=== PATIENT | female | born 2000 | race African-American/Black ===

== ENCOUNTER 2025-08-12 04:45 | Emergency (ER) | payer SELFPAY ==
--- OUTSIDE RECORDS SUMMARY | 2025-08-11 08:40 | XMS_ITS | Encounter Summary ---
Author Organization [facility] Address [address] [place] [address] Care Team Providers Care Commanding Officer H[employer]ide [employer] Name Role Phone Mike Todd Primary Care Provider [phone] Reason for Referral * Consultation (Routine) - Open Specialty Diagnoses / Procedures Referred By Serina sharp Referred To Contact Physical Therapy Diagnoses Dizziness and giddiness Steven Hope MD [address] [place] [address] Phone: tel: fax: Referral ID Status Reason Start Date Expiration Date V isits Requested Visits Authorized [id number] Open Specialty Services Required 08/11/2025 08/11/2026 1 1 Reason for Visit * Reason Comments Establish Care * Evaluate & Treat - Pending Review Specialty Diagnoses / Procedures Referred By Serina sharp Referred To Contact Neuroscience Diagnoses Dizziness and giddiness Cerebral cysts Unlisted, Ordering Provider, Steven Chapa MD [address] [place] [address] Phone: tel: fax: Referral ID Status Reason Start Date Expiration Date Visits Requested Visits Authorized [id number] Pending Review Specialty Services Required 07/23/2025 07/23/2026 1 1 Encounter Details Date Type Department Care Team (Late st Contact Info) Description 08/11/2025 8:40 AM CDT Office Visit [facility] Neurosciences [address] [place] [address] Steven Hope MD [address] [place] [address] Dizziness and giddiness (Primary Dx); Cerebral cysts Social History Tobacco Use Types Packs/Day Years Used Date Smoking Tobacco: Never Assessed Comments Unknown Sex and Gender Information Value Date Recorded Sex Assigned at Not on file Legal Sex Female 1:14 PM CDT Gender Identity Not on file Sexual Orientation Not on file documented as of this encounter Last Filed Vital Signs Vital Sign Reading Time Taken Comments Blood Pressure 112/78 08/11/2025 8:39 AM CDT Pulse 94 08/11/2025 8:39 AM CDT Temperature - - Respiratory Rate 18 08/11/2025 8:39 AM CDT Oxygen Saturation 98% 08/11/2025 8:39 AM CDT Inhaled Oxygen Concentration - - Weight 104.3 kg (230 lb) 08/11/2025 8:39 AM CDT Height 162.6 cm (5' 4) 08/11/2025 8:39 AM CDT Body Mass Index 39.48 08/11/2025 8:39 AM CDT documented in this encounter Patient Instructions * Patient Instructions* Steven Hope MD - 08/11/2025 9:33 AM CDT Life style Visit [employer] and watch videos on migraines. Track migraine using migraine kamila or similar shannon. Practice low tyramine diet, print out given with AVS 30-50 minutes of moderate intensity aerobic exercises 3-5 days a week Hydration Consider relaxation including yoga or mindfulness calm Shannon Read book on mindfulness by Obdulio Ramirez and Pratik Joe Bring medication bottles or photographs with documentation how you are taking. Use smart watch to track sleep,HR and mood Medications and tests Riboflavin 400 mg daily [id number] Magnesium oxide 250 mg daily [id number] Start TPM 25 mg qD, build to 50 mg bid Start Sumatriptan 50 mg qD prn migraine vertigo Vestibular rehabilitation RTC 8 weeks documented in this encounter Progress Notes * Steven Hope MD - 08/11/2025 9:14 AM CDT Chief Complain: Severe vertigo with headaches abrupt onset 05/15/25 [x] Headache start/worsen after an accident, illness or infection: no [x]> 3-6 Months [x] Independent Historian:No [x] Narrative: when I was working out to loose weight, in May 15 fell down and ht my head on sink saw spots everywhere called mom called ambulance. They told me that I had cyst in brain. PCP scheduled for MRI and showed cyst. I am falling forward and balance is off I never used to get headaches vision is bad Headaches-No headaches prior to 05/15. Pounding + temples. 5/10. Nausea. 12 days /month.saman not takemeds. Vertigo- difficulty balance when walk. Everything feels unleveled. Using walker x 2M. Everything started on May 15.had really bad headache when this all started. Does not drive. On shot term disability at work. Both ear ring a lot. No diplopia. 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 Orthostatic sx- when stand heart race and head pounding feel like pass out [x]WANT TO BE STILL / NOT MOVING []WANT TO PACE / FEEL RESTLESS []MOVEMENT DOES NOT MATTER Headache COMORBID's Affecting choice of medication None except Marked[] []Low BP- NO BB,CCB []Bradycardia-NO BB CCB []Asthma- NO BB []Coronary artery disease-NO Triptans []Weight gain - NO TCA,VPA []Memory loss-NO TCA TPM []PVD/Raynaud -NO triptans []Stroke- NO triptans [x]Anxiety/depression Headache/Migraine Journal: Monthly [x]Headaches > 15D [x]Headache Free days HFD: 15 [x]Migraine Days MMD: 15 [x]Headaches >4H daily [x]Disabled days all days []Triptans/anti-CGRP days: [x]>10 days of NSAIDS NO [x]Current Migraine meds: []Medication side effects from previous Rx []HIT6: Prodrome YES[] NO [x] []Yawning []Irritability/mood changes []Stuffy nose []Food []Pale or flushed []Difficulty in sleeping []Fatigue []Neck stiffness []Thirst/increased urination [x]Family history Migraine mom and sister [x]Car/sea/plane sickness +++ [x]Caffeine intake 0 Non-pain SX []Aura( visual,sensory/Motor) [x]Blurred vision []Brain fog ( processing delay,memory ,naming and concentration) [x]Touch Allodynia [x]Pulsating/throbbing [x]Photophobia [x]Phonophobia [x]Osmophobia [x]Nausea/vomiting []Numbness/weakness []Speech and language [x]Ringing [x]Vertigo/Dizziness Triggers-None except marked [x] Food & drinks (Aged cheeses, cured meats, fermented foods, pickles, alcohol, caffeine, MSG & aspartame) [x]Weather change [x]Female hormones [x]Sensory overload (light/noise) [x]Physical exertion/travel [x]Mental and physical stress [x]Dehydration [x]Sleep disturbance [x]Heat [x]Neck pain []Others Anti-Migraine meds tried and failed Marked You have failed (after a trial of at least two months) or cannot use one of the following preventive therapies (document name and date tried): []Anticonvulsant - []Betablockers - []TCA- []CCB - []SSRI- []Muscle relaxant- []BTX- []CGRP mAB- []CGRP Antagonist - [x]NSAIDS - []Triptans- []DiTans-Lasmiditan- []Pain management - []Others- Specific characters of headaches None except Marked []Thunderclap-SAH ( rapid build up to peak) []TVO & Pulsatile tinnitus-PTC (obese,papilledema,vision loss,venous thrombosis) []Cough headache-Chiari & tussive headache []Headache with syncope []Jaw claudication,weight loss,elderly and fatigue - GCA []Autonomic features-Cluster/TAC ( rhinorrhea,ptosis,lacrimation,lui) [x]Orthostatic headaches- Low pressure( POTS,Jacqueline danlos syndrome) []Medication overuse headache( > 15D NSAIDS/10D Triptans or opiates) []ADEBAYO ( obese,undiagnosed,not using CPAP) [x]Anxiety and depression( On meds/undiagnosed/intractable/refractory) []Post traumatic headache( recent TBI) RED FLAGS. - None except Marked[x] []Fever /Meningitis []First or worst headache []Cancer /HIV []Thunderclap []Side locked []Neurologic SX []Weight loss []IV Drug use []Immunocompromised []Systemic SX- []Onset after 65 []Change in pattern []Fall and SDH Medically appropriate Exam: BP 112/78 Pulse 94 Resp 18 Ht 1.626 m (5' 4) Wt 104.3 kg (230 lb) SpO2 98% Skin : Warm and moist, no rash. Normal Crotids. Normal language and orientation Normal examination of cranial Nrves 1-12 including Fundi. Normal strength 5/5 ,normal toner and symmetric 2+ tendon reflexes in all extremities. Normal sensory exam and coordination. 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 Reviewed the clinical notes from multiple ER visits on August 05, August 02, JulyJuly 31 July 28, July 15 May 28 May 31, multiple visit in April as well as 2023. Patient went for multiple problem predominant being vertigo. I reviewed the clinical note from Dr. Reid I independently reviewed and interpreted labs & reports of CMP showing low potassium 2.9, normal CBC, normal TSH, normal CK, negative troponins, normal magnesium. Diagnosis: Abrupt onset vertigo Abrupt onset severe head Pineal gland cyst Difficulty in walking Plan and recommendations. Life style Visit [employer] and watch videos on migraines. Track migraine using migraine kamila or similar shannon. Practice low tyramine diet, print out given with AVS 30-50 minutes of moderate intensity aerobic exercises 3-5 days a week Hydration Consider relaxation including yoga or mindfulness calm Shannon Read book on mindfulness by Obdulio Ramirez and Pratik Joe Bring medication bottles or photographs with documentation how you are taking. Use smart watch to track sleep,HR and mood Medications and tests Riboflavin 400 mg daily [id number] Magnesium oxide 250 mg daily [id number] Start TPM 25 mg qD, build to 50 mg bid Start Sumatriptan 50 mg qD prn migraine vertigo Compazine 5-10 mg t.i.d. p.r.n. vertigo ENT eval Vestibular rehabilitation RTC 8 weeks On May 15, 2025 while during workout she developed abrupt onset vertigo and headache of moderate to severe intensity, evaluated in the ER. Since then, symptoms are persisting. Now patient using walker to ambulate, unable to return to work because of vertigo and headaches. She has been to the ER onmultiple occasion and has been treated symptomatically with meclizine steroid, antianxiety medication including hydroxyzine, and Ativan. Her examination shows no evidence of nystagmus. She has a narrow based gait. She uses walker but can ambulate. Discussed various causes of persistent vertigo including vestibular migraine, peripheral vestibulopathy, subjective dizziness syndrome. I looked at the MRI brain, no central cause identified. Patienthas several features in the history including motion sickness, family history and headache with features of migraine suggest a migraine pathology. I would like to start treatment for migraine with topiramate, magnesium, riboflavin and PRN sumatriptan and Compazine. I also like to start on vestibular rehabilitation. Patient would also benefit by evaluation from an ENT. I also recommended management of anxiety and depression, she need to talk to the primary care aboutthat or psychiatrist or psychologist Regarding pineal cyst, asymptomatic, no evidence of compression on the MRI. Discussed significance of pineal cyst. Discussed went to see a neurosurgeon. Discussed importance of lifestyle in the management of migraine with hydration, using shannon to recordtriggers and journal, low tyramine diet, Education through wasting on [employer],discussed side effects of medication being prescribed including topiramate including teratogenic side effects. She is also reporting blurred vision which is likely manifestation of migraine. Also advised her todiscuss further with managed care analyst Headache work up planned/ Marked tests ordered during this visit []CBC,CMP,B12,MMA,Folate,Niacin,TSH,HIV,UTOX RPR []ESR CRP CK []Dilated Eye exam []EEG []MRI Brain WWO []CSF with opening Pressure []MRV brain []CTA HN []Autoimmune work up( CHIQUIS,Lupus,SSAB) []Paraneoplastic []SLE/vasculitis documented in this encounter Plan of Treatment Upcoming Encounters Date Type Department Care Team (Late st Contact Info) Description 11/16/2025 10:20 AM EMT B Office Visit [facility] Neuro[facility] [address] [place] [address] Steven Hope MD [address] [place] [address] Scheduled Referrals Name Type Priority Associated Diagnoses Order Schedule AMBULATORY REFERRAL TO VESTIBULAR REHABILITATION Outpatient Referral Routine Dizziness and giddiness 1 Occurrences starting 08/11/2025 until 09/10/2025 documented as of this encounter Visit Diagnoses Diagnosis Dizziness and giddiness- Primary Cerebral cysts documented in this encounter Care Teams Commanding Officer Homicide Squad Relationship Specialty Start Date End Date Mike Todd [address] [place] [phone] PCP - General 07/22/25 documented as of this encounter
--- NOTE | ~2025-08-12 | CT_ITS ---
CT HEAD NON-CONTRAST Clinical History: light headedness/dizziness, hx of brain cyst Comparison: None Technique: Unenhanced axial images skull base to vertex Coronal, sagittal reformats CT images acquired with automatic exposure control for dose reduction DLP: 757 mGy-cm Findings: Small probable arachnoid cyst right middle cranial fossa. Sulci, ventricles: Unremarkable. No intracerebral hemorrhage. No evidence acute territorial infarct. No mass effect, midline shift. Bony calvarium intact. Visualized paranasal sinuses: Clear. Mastoid air cells: Clear. IMPRESSION: 1. No acute intracranial findings. Reviewed, dictated and finalized at location R.
[2025-08-12 04:45] VITALS: BP 139/83; PULSE 87; RESP 16; TEMP 36.9; O2SAT 97
--- NOTE | 2025-08-12 04:52 | ECG_ITS ---
Test Date: 2025-08-12 04:49:43 Measurements Intervals [place] Rate: 85 P: 57 OK: 154 QRS: 52 QRSD: 93 T: -10 QT: 337 QTc: 402 Interpretive Statements SINUS RHYTHM NONSPECIFIC ST & T-WAVE ABNORMALITY ABNORMAL ECG No previous ECG available for comparison Electronically Signed On 08-12-2025 07:42:46 CDT by Onur Albrecht M.D.
--- NOTE | 2025-08-12 05:14 | ED_ITS ---
HPI - Dizziness General Chief Complaint: Dizziness Stated Complaint: Not feeling right after taking meclizine Time Seen by Provider: 08/12/25 04:50 Source: patient and EMS Mode of arrival: EMS Limitations: no limitations History of Present Illness HPI Narrative: This is a 25-year-old female with history of brain cyst who presents to the ED for lightheadedness and possible medication reaction. Patient states that she was having some of the dizziness related to her brain cyst overnight prompting her to take the meclizine that she was prescribed. She states that after taking this, about 10 minutes later she began to have some chest discomfort and lightheadedness prompting her to come to the ED. She states that the chest discomfort has resolved but she continues to have lightheadedness. She is following with a neurosurgeon for this brain cyst. Denies any new neurologic symptoms otherwise. Related Data Allergies Allergy/AdvReac Type Severity Reaction Status Date / Time metoclopramide AdvReac Anxiety Verified 08/12/25 06:41 Review of Systems 2 Review of Systems: Gen.: Denies fevers or chills Eyes: Denies eye pain or visual change ENT: Denies congestion Respiratory: Denies shortness of breath or cough CV: Denies chest pain or palpitations GI: Denies abdominal pain nausea, emesis or diarrhea denies burning, urgency, frequency or hematuria Musculoskeletal: Denies back pain or muscle pain Neuro: As per HPI Skin: Denies rash Except as documented, all other systems reviewed and negative Exam 2 Narrative: APPEARANCE: No acute distress, nontoxic, resting in bed EYES: EOMI. PERRL. Horizontal nystagmus. HEENT: Normocephalic, atraumatic, OMM RESPIRATORY: No respiratory distress Clear to auscultation bilaterally with no rhonchi wheezing or rales. CARDIOVASCULAR: Regular rate and rhythm without murmurs rubs or gallops. ABDOMINAL: Soft, nontender, nondistended, no rebound or guarding MUSCULOSKELETAl: Moves all extremities. No clubbing, cyanosis or edema. NEURO: Awake and alert. Following commands, speech normal. 5/5 strength to all extremities. Dysdiadochokinesia to the right extremities SKIN:: Warm, dry. No rashes lesions or abrasions PSYCHIATRIC: Normal affect/mood, Course Vital Signs Vital signs: Vital Signs Temperature 98.4 F 08/12/25 04:45 Pulse Rate 87 09/17/25 04:45 Respiratory Rate 16 08/12/25 04:45 Blood Pressure 139/83 08/12/25 04:45 Pulse Oximetry 97 08/12/25 04:45 Oxygen Delivery Room Air 08/12/25 04:45 Temperature 98.4 F 08/12/25 04:45 Pulse Rate 67 08/12/25 06:25 Respiratory Rate 16 08/12/25 06:25 Blood Pressure 128/84 08/12/25 06:25 Pulse Oximetry 100 08/12/25 06:25 Oxygen Delivery Room Air 08/12/25 04:45 MDM - Dizziness MDM Narrative Medical decision making narrative: 25-year-old female who presented to the ED for lightheadedness and headache. On initial evaluation, patient was in no acute distress afebrile, hemodynamically stable. She had a stable neurologic exam consistent with dysdiadochokinesia to the right extremities as well as nystagmus. Heart and lungs clear. Abdomen soft and nontender. CBC and CMP were without significant abnormalities. Troponin negative. CT head was obtained and showed no acute process. Patient did develop nausea so she was given Zofran. She was otherwise feeling well at this time. I advised her to discuss her medications with her prescribing provider in to follow-up closely with the neurosurgeon that has been managing her brain cyst. Patient was agreeable to this plan. Given strict return precautions. Differential Diagnosis Differential diagnosis: Likely adverse reaction to drug, benign paroxysmal positional vertigo and other (Brain cyst, pill esophagitis, electrolyte abnormality) Medical Records Attestation: I reviewed the patient's medical records. Lab Data Attestation: I reviewed the patient's lab results. 08/12/25 05:18 08/12/25 05:18 Labs: Lab Results 08/12/25 Range/Units 05:18 WBC 6.0 (4.5-10.0) K/mm3 RBC 3.99 L (4.2-5.4) M/mm3 Hgb 12.1 (12.0-15.0) g/dL Hct 37.8 (37.0-47.0) % MCV 94.7 (80-100) fl MCH 30.3 (26-34) pg MCHC 32.0 (32-36) g/dl RDW 15.3 H (11.5-14.5) % Plt Count 302 (150-375) k/mm3 MPV 9.2 (7.4-10.4) fl Immature Gran % (Auto) 0.2 (0-0.5) % Neut % (Auto) 52.8 (45.5-73.1) % Lymph % (Auto) 39.9 (18.3-44.2) % Talbot % (Auto) 4.7 (2.6-8.5) % Eos % (Auto) 1.7 (0-4.4) % Baso % (Auto) 0.7 (0.2-1.2) % Lymph # (Auto) 2.40 (0.9-3.2) K/mm3 Talbot # (Auto) 0.3 (0.1-0.6) K/mm3 Eos # (Auto) 0.1 (0-0.3) K/mm3 Baso # (Auto) 0.0 (0.0-0.1) K/mm3 Abs Immat Gran (auto) 0.01 (0.00-0.031) K/mm3 Absolute Neuts (auto) 3.2 (1.3-6.7) K/mm3 Absolute Nucleated RBC 0.000 (0.0-0.012) K/mm3 Nucleated RBC % 0.0 (0.0-0.2) % Sodium 139 (137-145) mmol/L Potassium 3.7 (3.4-5.0) mmol/L Chloride 107 (98-107) mmol/L Carbon Dioxide 23 (22-30) mmol/L Anion Gap 9 (4-12) mmol/L BUN 13 (7-17) mg/dL Creatinine 0.67 L (0.7-1.0) mg/dL Estim Creat Clear Calc 129 ml/min Estimated GFR > 60 (59 - ) Glucose 106 (65-110) mg/dL Calcium 8.9 (8.4-10.2) mg/dL Total Bilirubin 0.3 (0.2-1.3) mg/dL AST 24 (14-36) U/L ALT 18 (6-35) U/L Alkaline Phosphatase 77 (38-126) U/L Troponin I < 0.012 (0.000-0.034) ng/mL Total Protein 8.0 (6.3-8.2) g/dL Albumin 4.1 (3.5-5.1) g/dL Imaging Data Attestation: I personally reviewed and interpreted this imaging study as follows: Radiologist's impression: Impressions Head CT 08/12/25 06:16 IMPRESSION: 1. No acute intracranial findings. Discharge Plan Discharge Clinical Impression: Anxiety Adverse reaction to drug Qualifiers: Encounter type: initial encounter Qualified Code(s): T50.905A - Adverse effect of unspecified drugs, medicaments and biological substances, initial encounter Patient Disposition: Home Condition: Stable Instructions: Antibiotic Form Additional Instructions: If you are concerned you may stop taking the the meclizine. Call your prescribing provider to discuss a possible different medication. Continue to follow-up with her neurosurgeon as scheduled. Return to ED for new or worsening symptoms. Patient Language: Estonian Follow-up/Referrals: PHYSICIAN,NEURO OPHTHALMOLOGIST [Primary Care Provider, Internal Medicine]
[2025-08-12 05:23] LABS: Hematocrit 37.8 % (37.0-47.0); Hemoglobin 12.1 g/dL (12.0-15.0); Immature Granulocyte Percent A 0.2 % (0-0.5); Lymphocytes Absolute Auto 2.40 K/mm3 (0.9-3.2); Mean Corpuscular HGB Conc 32.0 g/dl (32-36); Mean Corpuscular Hemoglobin 30.3 pg (26-34); Mean Corpuscular Volume 94.7 fl (80-100); Nucleated Red Blood Cells Absolute Auto 0.000 K/mm3 (0.0-0.012); Nucleated Red Blood Cells Perc 0.0 % (0.0-0.2); Platelet Count Result 302 k/mm3 (150-375); Red Blood Count 3.99 M/mm3 (4.2-5.4); White Blood Count 6.0 K/mm3 (4.5-10.0)
[2025-08-12 05:37] LABS: Alanine Aminotransferase 18 U/L (6-35); Albumin Level 4.1 g/dL (3.5-5.1); Alkaline Phosphatase 77 U/L (38-126); Anion Gap 9 mmol/L (4-12); Aspartate Amino Transferase 24 U/L (14-36); Bilirubin,Total 0.3 mg/dL (0.2-1.3); Blood Urea Nitrogen 13 mg/dL (7-17); Calcium 8.9 mg/dL (8.4-10.2); Carbon Dioxide 23 mmol/L (22-30); Chloride 107 mmol/L (98-107); Estimated CRCL calculation 129 ml/min; Estimated Glomerular Filt Rate > 60; Glucose 106 mg/dL (65-110); Potassium 3.7 mmol/L (3.4-5.0); Sodium 139 mmol/L (137-145); Total Protein 8.0 g/dL (6.3-8.2)
[2025-08-12 05:48] LABS: Troponin I < 0.012 ng/mL (0.000-0.034)
[2025-08-12 06:25] VITALS: BP 128/84; PULSE 67; RESP 16; O2SAT 100
[2025-08-12] MEDS: ONDANSETRON INJ 4 MG/2 ML VIAL IV PUSH (06:47)
[2025-08-12] MEDS: LORazepam (*CRX) 0.5 MG TABLET PO (07:02)
[2025-08-12 07:56] VITALS: BP 121/89; PULSE 82; RESP 20; O2SAT 99
== END 2025-08-12 07:58 | disposition home or self-care (01) ==
PROVIDERS: Emergency Provider Student in an Organized Health Care Education/Training Program
DX: F41.9 Anxiety disorder, unspecified (principal); T50.905A Adverse effect of unspecified drugs, medicaments and biological substances, initial encounter; R42 Dizziness and giddiness; R07.9 Chest pain, unspecified; Z79.899 Other long term (current) drug therapy
CPT/HCPCS: 36415; 70450; 80053; 84484; 85025; 93005; 96374; 99284; A9270; J2405

== ENCOUNTER 2025-08-19 00:57 | Emergency (ER) | payer BC, SELFPAY ==
--- NOTE | ~2025-08-19 | XR_ITS ---
Examination: XR chest 2V Clinical History: dizziness Comparison: None Technique: PA and Lateral Findings: Cardiomediastinal silhouette normal size and configuration. Lungs clear. No acute bony abnormality. IMPRESSION: 1. No acute cardiopulmonary findings. Reviewed, dictated and finalized at location R.
[2025-08-19 00:58] VITALS: BP 141/84; PULSE 92; RESP 16; TEMP 37.5; O2SAT 100
--- OUTSIDE RECORDS SUMMARY | 2025-08-19 00:59 | XMS_ITS | Clinical Summary ---
Author Organization [facility] Address [facility] [place] [address] Care Team Providers Care Head Of Operation And Logistics Name Role Phone Mike Todd MD Primary Care Provider [phone] Allergies Active Allergy Reactions Criticality Noted Date Comments Latex Hives,Itching Medium 12/11/2019 Metoclopramide Anxiety,Dystonia Medium 07/31/2025 Medications zolpidem (AMBIEN) 10 MG tablet Take 1 tablet (10 mg total) by mouth nightly as needed for Sleep. 11/17/2022 Active ferrous sulfate, 65 mg elemental, 325 (65 FE) MG tablet ferrous sulfate 325 mg (65 mg iron) tablet Active albuterol sulfate HFA 108 (90 Base) MCG/ACT inhaler Inhale 2 puffs into the lungs every 6 (six) hours as needed for Wheezing. 8 g 04/11/2023 Active hydrOXYzine (ATARAX) 25 MG tablet Take 1 tablet 3 times a day by oral route as needed for 30 days. 05/28/2025 Active escitalopram (LEXAPRO) 10 MG tablet Take 1 tablet every day by oral route for 90 days. 05/26/2025 Active meclizine (TRAVEL SICKNESS) 25 MG chewable tablet Chew 0.5 tablets (12.5 mg total) by mouth 3 (three) times daily as needed for Dizziness. 90 tablet 05/31/2025 Active LORazepam (ATIVAN) 0.5 MG tabletIndicatio ns:Anxiety hyperventilatio n,Stress Take 1 tablet (0.5 mg total) by mouth every 8 (eight) hours as needed for Anxiety. 10 tablet 08/05/2025 Active Encounters Date Type Department Care Team Description 08/05/2025 3:11 PM CDT - 08/05/2025 5:59 PM CDT Emergency [facility] [place] [address] Day Mendez MD Tingling Discharge Disposition: Home or Self Care (Routine Discharge) 08/05/2025 Travel 08/02/2025 4:52 PM CDT - 08/02/2025 7:36 PM CDT Emergency [facility] [place] [address] Lilly Albrecht MD Shortness Of Breath Discharge Disposition: Left Against Medical Advice 08/02/2025 Travel 07/31/2025 2:15 PM CDT - 07/31/2025 9:06 PM CDT Emergency [facility] [place] [address] Franklin Vargas MD Medical Problem Discharge Disposition: Home or Self Care (Routine Discharge) 07/31/2025 Travel 07/29/2025 9:40 PM CDT - 07/29/2025 11:41 PM CDT Emergency [facility] [place] [address] Maureen Benavides MD Medical Problem Discharge Disposition: Home or Self Care (Routine Discharge) 07/29/2025 Travel 07/28/2025 11:38 AM CDT - 07/28/2025 2:52 PM CDT Emergency [facility] [place] [address] Marcus Akhtar MD Dizziness; Blurred Vision; Headache; Ear Problem Discharge Disposition: Home or Self Care (Routine Discharge) 07/28/2025 Travel 07/18/2025 1:02 AM CDT - 07/18/2025 4:55 AM CDT Emergency [facility] [place] [address] Fredo Sy MD,PHD Headache Discharge Disposition: Home or Self Care (Routine Discharge) 07/18/2025 Travel 07/13/2025 Telephone [facility] [address], [address] [place] [id number] Bogdan Chen MD Referral 05/31/2025 1:53 PM CDT - 05/31/2025 4:05 PM CDT Emergency [facility] [place] [address] Son Edmonds NP Anxiety Discharge Disposition: Home or Self Care (Routine Discharge) 05/31/2025 Travel 05/24/2025 Results Follow-Up [facility] [place] [address] Marci Correia PA CULTURE URINE 05/20/2025 4:18 PM CDT - 05/20/2025 7:47 PM CDT Emergency [facility] [place] [address] Silvia Lee PA Generalized Weakness Discharge Disposition: Home or Self Care (Routine Discharge) 05/20/2025 Travel from Last 3 Months Family History Medical History Relation Comments Alcohol Abuse Father Asthma Mother Heart Disease Mother Hypertension Mother Stroke Mother Relation Status Comments Father Alive Mother Alive Social History Tobacco Use Types Packs/Day Years Used Date Smoking Tobacco: Never Passive Smoke Exposure: Never Smokeless Tobacco: Never Tobacco Cessation:Counseling Given: Not Answered Alcohol Use Standard Drinks/Week Comments Not Currently 0 (1 standard drink = 0.6 oz pur e alcohol) social Comments No Sex and Gender Information Value Date Recorded Sex Assigned at Female 05/20/2025 4:02 PM CDT 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 Gender Identity Not on file Sexual Orientation Not on file Last Filed Vital Signs Vital Sign Reading Time Taken Comments Blood Pressure 114/81 08/05/2025 5:55 PM CDT Pulse 94 08/05/2025 5:55 PM CDT Temperature 36.7 C (98.1 F) 08/05/2025 6:00 PM CDT Respiratory Rate 18 08/05/2025 5:55 PM CDT Oxygen Saturation 99% 08/05/2025 5:55 PM CDT Inhaled Oxygen Concentration - - Weight 108.9 kg (240 lb) 08/05/2025 2:19 PM CDT Height 162.6 cm (5' 4) 08/05/2025 2:19 PM CDT Body Mass Index 41.2 08/05/2025 2:19 PM CDT Plan of Treatment Health Maintenance Due Date Last Done Comments Cervical Cancer Screening Pap Smear (Age 21 to 29) Every 3 Years 1999 Cervical Cancer Screening 1999 Annual Physical 2002 DTaP, Tdap and Td Vaccines (6 - Tdap) 2010 07/17/2003, 03/20/2002, 12/13/2000, Additional history exists HPV Vaccines (1 - 3-dose series) 2014 Hepatitis C 2017 Hepatitis B Vaccines (1 of 3 - 19+ 3-dose series) 2018 PHQ-2 (Physician [employer]emat[employer]) 11/26/2024 COVID-19 Vaccine ( - season) 2025 Meningococcal B Vaccine Aged Out No l onger eligible based on patient's age to complete this topic Meningococcal Vaccine Aged Out No ravindra billie eligible based on patient's age to complete this topic Pneumococcal Vaccine: Pediatrics (0 to 5 Years) and At-Risk Patients (6 to 49 Years) Aged Out No longer eligible based on patient's age to complete this topic RSV Immunizations Under 20 Months Aged Out No longer eligible based on patient's age to complete this topic Procedures Procedure Name Priority Date/Time Associated Diagnosis Comments ECG 12-LEAD Routine 08/05/2025 4:24 PM CDT MAGNESIUM STAT 08/05/2025 4:03 PM CDT TSH W/REFLEX STAT 08/05/2025 4:03 PM CDT TROPONIN, QUANT STAT 08/05/2025 4:03 PM CDT COMPREHENSIVE METABOLIC PANEL STAT 08/05/2025 4:03 PM CDT PARTIAL THROMBOPLASTIN TIME,PTT STAT 08/05/2025 4:03 PM CDT PROTHROMBIN TIME, VENOUS STAT 08/05/2025 4:03 PM CDT CBC W/DIFF AUTOMATED STAT 08/05/2025 4:03 PM CDT XR CHEST PORTABLE STAT 08/05/2025 2:4 3 PM CDT ECG 12-LEAD Routine 08/02/2025 5:27 PM CDT TROPONIN, QUANT STAT 08/02/2025 5:14 PM CDT MAGNESIUM STAT 08/02/2025 5:14 PM CDT COMPREHENSIVE METABOLIC PANEL STAT 08/02/2025 5:14 PM CDT CBC W/DIFF AUTOMATED STAT 08/02/2025 5:14 PM CDT XR CHEST PA+LAT STAT 08/02/2025 4:55 PM CDT ECG 12-LEAD STAT 07/31/2025 2:41 PM CDT CK (CPK) STAT 07/31/2025 2:35 PM CDT COMPREHENSIVE METABOLIC PANEL STAT 07/31/2025 2:35 PM CDT CBC W/DIFF AUTOMATED STAT 07/31/2025 2:35 PM CDT TSH W/REFLEX Routine 07/31/2025 2:28 PM CDT MAGNESIUM Routine 07/31/2025 2:28 PM CDT THYROXINE, FREE (FT4) STAT 07/29/2025 10:12 PM CDT TROPONIN, QUANT STAT 07/29/2025 10:12 PM CDT TSH W/REFLEX STAT 07/29/2025 10:12 PM CDT MAGNESIUM STAT 07/29/2025 10:12 PM CDT COMPREHENSIVE METABOLIC PANEL STAT 07/29/2025 10:12 PM CDT CBC W/DIFF AUTOMATED STAT 07/29/2025 10:12 PM CDT ECG 12-LEAD Routine 07/29/2025 10:[address] HEAD WO CON STAT 07/28/2025 1:44 PM CDT ECG 12-LEAD Routine 07/28/2025 12:34 PM CDT TSH W/REFLEX STAT 07/28/2025 12:08 PM CDT MAGNESIUM STAT 07/28/2025 12:08 PM CDT COMPREHENSIVE METABOLIC PANEL STAT 07/28/2025 12:08 PM CDT CBC W/DIFF AUTOMATED STAT 07/28/2025 12:08 PM CDT POCT URINE (BACK OFFICE) STAT 07/28/2025 11:40 AM CDT XR CHEST PORTABLE STAT 07/18/2025 2:1 1 AM CDT ECG 12-LEAD STAT 07/18/2025 2:05 AM CDT D-DIMER, QUANTITATIVE STAT 07/18/2025 1:24 AM CDT TROPONIN, QUANT STAT 07/18/2025 1:24 AM CDT COMPREHENSIVE METABOLIC PANEL STAT 07/18/2025 1:24 AM CDT CBC W/DIFF AUTOMATED STAT 07/18/2025 1:24 AM CDT ECG 12-LEAD Routine 05/31/2025 2:58 PM CDT POCT URINE (BACK OFFICE) STAT 05/31/2025 2:38 PM CDT XR CHEST PORTABLE STAT 05/31/2025 2:1 6 PM CDT COMPREHENSIVE METABOLIC PANEL STAT 05/31/2025 1:28 PM CDT CBC W/DIFF AUTOMATED STAT 05/31/2025 1:28 PM CDT MAGNESIUM STAT 05/20/2025 4:31 PM CDT THYROXINE, FREE (FT4) STAT 05/20/2025 4:31 PM CDT THYROID STIM HORMONE TSH STAT 05/20/2025 4:31 PM CDT COMPREHENSIVE METABOLIC PANEL STAT 05/20/2025 4:31 PM CDT CBC W/DIFF AUTOMATED STAT 05/20/2025 4:31 PM CDT ECG 12-LEAD STAT 05/20/2025 4:29 PM CDT XR CHEST PORTABLE STAT 05/20/2025 4:0 6 PM CDT URINE BACTERIA CULTURE Routine 3:42 PM CDT DRUG SCREEN RAPID STAT 05/20/2025 3:4 2 PM CDT HC URINALYSIS AUTO W/O MICRO STAT 05/20/2025 3:42 PM CDT POCT URINE (BACK OFFICE) STAT 05/20/2025 3:35 PM CDT from Last 3 Months Results * ECG 12 lead (08/05/2025 4:24 PM CDT) Only the most recent of8 resultswithin the time period is included. 08/05/2025 4:24 PM CDT Narrative [facility] - 08/05/2025 10:[address] 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: [id number] : 2000 Requested By: AMRIT AGUILAR Order Number: [id number] Reading : Saji Marrus Measurements Intervals [place] Rate: 84 P: 57 UT: 152 QRS: 63 QRSD: 90 T: 11 QT: 345 QTc: 409 Interpretive Statements SINUS RHYTHM NONSPECIFIC T-WAVE ABNORMALITY Compared to ECG 08/02/2025 17:27:04 Sinus arrhythmia no longer present Possible ischemia no longer present T-wave abnormality still present Amrit Aguilar PA-C ECG ORDERABLES Final Resul t Performing Organization Address City/[facility]/ZIP Co de Phone Number [facility] * TSH W/REFLEX (08/05/2025 4:03 PM CDT) Only the most recent of4 resultswithin the time period is included. Pathologist [facility] TSH 1.820 0.358 - 3.74 uIU/ML 08/05/2025 5:03 PM CDT [facility] Comment: HIGH DOSES OF BIOTIN MAY INTERFERE WITH THIS TEST RESULT. CORRELATION TO CLINICAL HISTORY AND PRESENTATION RECOMMENDED. FREE T4 NOT INDICATED 08/05/2025 4:03 PM CDT Amrit Aguilar PA-C LABORATORY Final Resul t Performing Organization Address [facility] de Phone Number [facility] [address] [place] [address], [place] [phone] * PARTIAL THROMBOPLASTIN TIME,PTT (08/05/2025 4:03 PM CDT) PTT 29.5 25.1 - 36.5 SEC 08/05/2025 4:41 PM CDT [facility] 08/05/2025 4:03 PM CDT Amrit Aguilar PA-C LABORATORY Final Resul t Performing Organization Address City/[facility]/ZIP Co de Phone Number [facility] [address] [place] [address], [place] [phone] * PROTIME/INR, VENOUS (08/05/2025 4:03 PM CDT) [facility] PROTIME 12.1 10.2 - 12.9 SEC 08/05/2025 4:41 PM CDT [facility] INR 1.1 08/05/2025 4:41 PM CDT [facility] Comment: Recommended INR Therapeutic Goals: 2.0-3.0 Routine Therapy 2.5-3.5 Mechanical Prosthetic Valves (High Risk) 08/05/2025 4:03 PM CDT Amrit Aguilar PA-C LABORATORY Final Resul t [facility] [address] [place] [address], * (ABNORMAL) COMPREHENSIVE METABOLIC PANEL (08/05/2025 4:03 PM CDT) Only the most recent of8 resultswithin the time period is included. [facility] GLUCOSE 95 70 - 99 MG/DL 08/05/2025 5:03 PM CDT [facility] BUN 8 7 - 18 MG/DL 08/05/2025 5:03 PM CDT [facility] CREATININE S/P/B 0.78 0.55 - 1.02 MG/DL 08/05/2025 5:03 PM CDT [facility] SODIUM S/P/B 139 136 - 145 MMOL/L 08/05/2025 5:03 PM CDT [facility] POTASSIUM S/P/B 3.1(L) 3.5 - 5.1 MMOL/L 08/05/2025 5:03 PM CDT [facility] CHLORIDE S/P/B 111 97 - 115 MMOL/L 08/05/2025 5:03 PM CDT [facility] CO2 19.9(L) 21 - 32 MMOL/L 08/05/2025 5:03 PM CDT [facility] CALCIUM S/P/B 9.2 8.5 - 10.1 MG/DL 08/05/2025 5:03 PM CDT [facility] BILIRUBIN TOTAL S/P/B 0.4 0.2 - 1.2 MG/DL 08/05/2025 5:03 PM CDT [facility] Comment: THIS ASSAY IS NOT RECOMMENDED FOR PATIENTS UNDERGOING TREATMENT WITH ELTROMBOPAG DUE TO THE POTENTIAL FOR FALSELY ELEVATED RESULTS. TOTAL PROTEIN S/P/B 8.1 6.4 - 8.2 G/DL 08/05/2025 5:03 PM T [facility] ALBUMIN S/P/B 3.6 3.4 - 5.0 G/DL 08/05/2025 5:03 PM CDT [facility] AST 17 15 - 37 U/L 08/05/2025 5:03 PM T [facility] ALT 20 14 - 55 U/L 08/05/2025 5:03 PM T [facility] ALKALINE PHOSPHATASE S/P/B 69 50 - 136 U/L 08/05/2025 5:03 PM T [facility] ANION GAP 8.1 2 - 10 MMOL/L 08/05/2025 5:03 PM CDT [facility] BUN CREATININE RATIO 10.2 6 - 26 08/05/2025 5:03 PM T [facility] A/G RATIO 0.8(L) 1.0 - 2.0 RATIO 08/05/2025 5:03 PM T [facility] GFR ESTIMATE >90 >90 ML/MIN/1.7 3 M2 08/05/2025 5:03 PM CDT [facility] Comment: NOTE: eGFR is not calculated for patients <18 years of age or gender unknown. This is an estimated GFR calculation using the new CKD EPI creatinine equation without race and so does not require a correction factor for race. This estimated GFR should not be used for calculating drug doses. 08/05/2025 4:03 PM CDT Amrit Aguilar PA-C LABORATORY Final Resul t [facility] [address] [place] [id number], * (ABNORMAL) CBC W/DIFF AUTOMATED (08/05/2025 4:03 PM CDT) Only the most recent of8 resultswithin the time period is included. WBC 7.02 4.5 - 11.0 x10'3/uL 08/05/2025 4:20 PM CDT [facility] RBC 4.13(L) 4.20 - 5.40 x10'6/uL 08/05/2025 4:20 PM CDT [facility] HGB 12.5 12.0 - 16.0 G/DL 08/05/2025 4:20 PM CDT [facility] HCT 37.8(L) 38.0 - 48.0 % 08/05/2025 4:20 PM CDT [facility] MCV 91.5 81.0 - 99.0 FL 08/05/2025 4:20 PM CDT [facility] MCH 30.3 27.0 - 31.0 PG 08/05/2025 4:20 PM CDT [facility] MCHC 33.1 32.0 - 36.0 G/DL 08/05/2025 4:20 PM CDT [facility] RDW 15.7(H) 11.5 - 14.5 % 08/05/2025 4:20 PM CDT [facility] PLT 317 130 - 400 x10'3/uL 08/05/2025 4:20 PM CDT [facility] MPV 9.4 9.3 - 12.2 FL 08/05/2025 4:20 PM CDT [facility] DIFFERENTIAL TYPE AUTOMATED DIFFERENTIAL 08/05/2025 4:20 PM CDT [facility] NEUTROPHILS % 73.4 % 08/05/2025 4:20 PM CDT [facility] LYMPHOCYTES % 21.1 % 08/05/2025 4:20 PM CDT [facility] MONOCYTES % 3.8 % 08/05/2025 4:20 PM CDT [facility] EOSINOPHILS 0.6 % 08/05/2025 4:20 PM CDT [facility] BASOPHILS 0.7 % 08/05/2025 4:20 PM CDT [facility] IMMATURE GRANS % 0.4 % 08/05/20 4:20 PM CDT [facility] ABS. NEUTROPHILS 5.15 1.80 - 7.70 x10'3/uL 08/05/2025 4:20 PM CDT [facility] ABS. LYMPHOCYTES 1.48 1.00 - 4.80 x10'3/uL 08/05/2025 4:20 PM CDT [facility] ABS. MONOCYTES 0.27 0.24 - 0.86 x10'3/uL 08/05/2025 4:20 PM CDT [facility] ABS. EOSINOPHILS 0.04 0.04 - 0.36 x10'3/uL 08/05/2025 4:20 PM CDT [facility] ABS. BASOPHILS 0.05 0.01 - 0.08 x10'3/uL 08/05/2025 4:20 PM CDT [facility] ABS. IMMATURE GRANULOCYTES 0.03 0.00 - 0.49 x10'3/uL 08/05/2025 4:20 PM CDT [facility] 08/05/2025 4:03 PM CDT us Amrit Aguilar PA-C LABORATORY Final Resul t Performing Organization Address City/[facility] Co de Phone Number [facility] [address] [place] [address], [place] [phone] * TROPONIN, QUANT (08/05/2025 4:03 PM CDT) Only the most recent of4 resultswithin the time period is included. TROPONIN I HIGH SENSITIVITY 3 <54 ng/L 08/05/2025 5:03 PM CDT [facility] Comment: HIGH DOSES OF BIOTIN, TROPONIN-SPECIFIC AUTOANTIBODIES, AND ANTIBODY THERAPY CONTAINING HAMA MAY INTERFERE WITH THIS TEST RESULT. CORRELATION TO CLINICAL HISTORY AND PRESENTATION RECOMMENDED. 08/05/2025 4:03 PM CDT us Amrit Aguilar PA-C LABORATORY Final Resul t Performing Organization Address City/[facility]/ZIP Co de Phone Number [facility] [address] [place] [address], [place] [phone] * MAGNESIUM (08/05/2025 4:03 PM CDT) Only the most recent of6 resultswithin the time period is included. MAGNESIUM 2.0 1.8 - 2.4 MG/DL 08/05/2025 5:03 PM CDT [facility] 08/05/2025 4:03 PM CDT us Amrit Aguilar PA-C LABORATORY Final Resul t [facility] [address] [place] [address], * XR CHEST PORTABLE (08/05/2025 2:43 PM CDT) Only the most recent of4 resultswithin the time period is included. Anatomical Region Laterality Modality Chest Radiographic Dayanna ging 08/05/2025 2:44 PM CDT Impressions 08/05/2025 2:46 PM CDT =====IMPRESSION:===== No acute findings. Ordered By: AMRIT AGUILAR Interpreted By: Quintin Ascencio MD, 08/05/2025 2:44 PM Narrative 08/05/2025 2:46 PM [address] [address] Examination: Chest x-ray 1 view Exam date/time: 08/05/2025 2:34 PM Reason For Exam: Shortness of breath. Comparison: 08/02/2025 Findings: Cardiomediastinal silhouette and pulmonary vasculature are within normal limits. No acute airspace consolidation, pleural effusion or pneumothorax. Lungs are somewhat underinflated. External artifacts are noted. Procedure Note Quintin Ascencio MD - 08/05/[address] [address] Examination: Chest x-ray 1 view Exam date/time: 08/05/2025 2:34 PM Reason For Exam: Shortness of breath. Comparison: 08/02/2025 Findings: Cardiomediastinal silhouette and pulmonary vasculature arewithin normal limits. No acute airspace consolidation, pleural effusion orpneumothorax. Lungs are somewhat underinflated. External artifacts arenoted. =====IMPRESSION:===== No acute findings. Ordered By: AMRIT AGUILAR Interpreted By: Quintin Ascencio MD, 08/05/2025 2:44 PM us Amrit Aguilar PA-C GENERAL IMAGING Final Resul t * XR CHEST PA+LAT (08/02/2025 4:55 PM CDT) Anatomical Region Laterality Modality Chest Radiographic Dayanna ging 08/02/2025 5:03 PM CDT Impressions 08/02/2025 5:04 PM CDT IMPRESSION: 1) No acute or focal infiltrates. Ordered By: ALIRIO JEFFERS Interpreted By: Boby Falk MD, 08/02/2025 5:03 PM Narrative 08/02/2025 5:04 PM CDT [place] [address] Examination: XR CHEST PA+LAT Exam time: 08/02/2025 4:34 PM Clinical history: Short of breath. Comparison: Prior radiographs June 2025. Technique: One view chest. Findings: Cardiac size is normal. Trachea is in the midline. In the lung parenchyma no acute infiltrates. There is no pneumothorax or effusion. Osseous structures are intact. Procedure Note Boby Falk MD - 08/02/[address] [address] Examination: XR CHEST PA+LAT Exam time: 08/02/2025 4:34 PM Clinical history: Short of breath. Comparison: Prior radiographs June 2025. Technique: One view chest. Findings: Cardiac size is normal. Trachea is in the midline. In the lungparenchyma no acute infiltrates. There is no pneumothorax or effusion.Osseous structures are intact. IMPRESSION: 1) No acute or focal infiltrates. Ordered By: ALIRIO JEFFERS Interpreted By: Boby Falk MD, 08/02/2025 5:03 PM Alirio Jeffers FAMILY MEDICINE PHYSICIAN ASSISTANT GENERAL IMAGING Final Result * CK (CPK) (07/31/2025 2:35 PM CDT) CPK 79 21 - 215 U/L 07/31/2025 4:09 PM CDT [facility] 07/31/2025 2:35 PM CDT Marci RODRIGUEZ LABORATORY Final Result Performing Organization Address City/[facility]/ZIP Co de Phone Number [facility] [address] [place] [address], [place] [phone] * THYROXINE, FREE (FT4) (07/29/2025 10:12 PM CDT) Only the most recent of2 resultswithin the time period is included. FREE T4 0.90 0.76 - 1.46 NG/DL 07/29/2025 10:52 PM CDT [facility] 07/29/2025 10:1 2 PM CDT Silvia RODRIGUEZ LABORATORY Final Result [facility] [address] [place] [address], [place] [phone] * CT HEAD WO CON (07/28/2025 1:44 PM CDT) Anatomical Region Laterality Modality Head Computed Tomogra phy 07/28/2025 1:44 PM CDT Impressions 07/28/2025 1:50 PM CDT =====IMPRESSION:===== 1. No convincing acute intracranial abnormality. 2. Right middle cranial fossa 1.0 x 3.0 cm 3 cm density cystic lesion overlying the right anterior temporal lobe with slight localized mass effect, statistically most likely representing an arachnoid cyst. Differential includes epidermoid. This could be distinguished with nonemergent MRI contrast brain imaging if not already performed earlier. (CT has limited sensitivity for detection of acute ischemia). If acute ischemia is of clinical concern MRI can be considered. Ordered By: SON EDMONDS Interpreted By: Izabella Almendarez MD, 07/28/2025 1:44 PM Narrative 07/28/2025 1:50 PM [address] [address] Exam: CT head without contrast Exam Date/Time: 07/28/2025 1:29 PM Indication: 25 female. Headache,, dizziness, tinnitus. 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 Comparison: None Technique: Computed tomography of the head performed without contrast from the vertex to the skull base. A dose lowering technique was used for this procedure, which may include, but is not limited to, dose reduction technique, automated exposure control, the use of iterative reconstruction, and ALARA (As Low As Reasonably Achievable) / Image Gently techniques. CT findings: Normal ventricles and sulci are. Elliptical CSF density suspected cystic lesion measuring 1.0 x 3.0 cm overlying the right temporal lobe in the middle cranial fossa limits mass effect on the anterior right temporal lobe. No midline shift. No intracranial hemorrhage. No established acute or chronic infarct within study limits. Neri-white association is normal. No other abnormal parenchymal density. Basilar cisterns are patent. Visualized posterior fossa is grossly unremarkable. Visualized orbits and orbital structures are unremarkable. Imaged portions of the paranasal sinuses and mastoid air cells are clear. No scalp soft tissue swelling or hematoma identified. Calvarium is unremarkable. Procedure Note Izabella Almendarez MD - 07/28/2025 [facility] [address] [place], [place] [address] Exam: CT head without contrast Exam Date/Time: 07/28/2025 1:29 PM Indication: 25 female. Headache,, dizziness, tinnitus. Reported historybenign brain tumor. Comparison: None Technique: Computed tomography of the head performed without contrast fromthe vertex to the skull base. A dose lowering technique was used for thisprocedure, which may include, but is not limited to, dose reductiontechnique, automated exposure control, the use of iterativereconstruction, and ALARA (As Low As Reasonably Achievable) / Image Gentlytechniques. CT findings: Normal ventricles and sulci are. Elliptical CSF density suspected cystic lesion measuring 1.0 x 3.0 cmoverlying the right temporal lobe in the middle cranial fossa limits masseffect on the anterior right temporal lobe. No midline shift. No intracranial hemorrhage. No established acute or chronic infarct within study limits. Neri- whiteassociation is normal. No other abnormal parenchymal density. Basilar cisterns are patent. Visualized posterior fossa is grosslyunremarkable. Visualized orbits and orbital structures are unremarkable. Imaged portionsof the paranasal sinuses and mastoid air cells are clear. No scalp soft tissue swelling or hematoma identified. Calvarium isunremarkable. =====IMPRESSION:===== 1. No convincing acute intracranial abnormality. 2. Right middle cranial fossa 1.0 x 3.0 cm 3 cm density cystic lesionoverlying the right anterior temporal lobe with slight localized masseffect, statistically most likely representing an arachnoid cyst.Differential includes epidermoid. This could be distinguished withnonemergent MRI contrast brain imaging if not already performed earlier. (CT has limited sensitivity for detection of acute ischemia). If acuteischemia is of clinical concern MRI can be considered. Ordered By: SON EDMONDS Interpreted By: Izabella Almendarez MD, 07/28/2025 1:44 PM us Son Edmonds NP CT Final Result * POCT urine (07/28/2025 11:40 AM CDT) Only the most recent of3 resultswithin the time period is included. URINE HCG TEST NEGATIVE Internal Control: VALID 07/28/2025 11:4 0 AM CDT us Son Edmonds NP POINT OF CARE TEST ORDERABLES Final Result * D-DIMER, QUANTITATIVE (07/18/2025 1:24 AM CDT) D-DIMER 268 0 - 500 ng{FEU}/mL 07/18/2025 1:44 AM CDT [facility] Comment: D-Dimer values less than or equal to 500 ng/mL FEU have a negative predictive value of >95% for exclusion of deep vein thrombosis and pulmonary embolism. In patients over 50 (who tend to have higher normal baseline D-Dimer values), recent studies suggest age-adjusted D-Dimer cutoff values (calculated as: age [years] x 10 ng/mL) result in equivalent outcomes and no additional false negative findings. 07/18/2025 1:24 AM CDT Fredo Sy MD,PHD LABORATORY Final Resu lt [facility] [address] [place] [address], [place] [phone] * THYROID STIM HORMONE TSH (05/20/2025 4:31 PM CDT) TSH 1.850 0.358 - 3.74 uIU/ML 05/20/2025 5:11 PM CDT [facility] Comment: HIGH DOSES OF BIOTIN MAY INTERFERE WITH THIS TEST RESULT. CORRELATION TO CLINICAL HISTORY AND PRESENTATION RECOMMENDED. 05/20/2025 4:31 PM CDT Marci RDORIGUEZ LABORATORY Final Result [facility] [address] [place] [address], * (ABNORMAL) DRUG SCREEN RAPID (05/20/2025 3:42 PM CDT) Pathologist [facility] AMPHETAMINE (U) NEGATIVE NEGATIVE 4:55 PM CDT [facility] BARBITURATES SCREEN (U) NEGATIVE NEGATIVE 05/20/2025 4:55 PM CDT [facility] BENZODIAZEPINES SCREEN (U) NEGATIVE NEGATIVE 05/20/2025 4:55 PM CDT [facility] CANNABINOIDS SCREEN (U) POSITIVE(A) NEGATIVE 05/20/2025 4:55 PM CDT [facility] COCAINE METABOLITES (U) NEGATIVE NEGATIVE 05/20/2025 4:55 PM CDT [facility] METHADONE (U) NEGATIVE NEGATIVE 05/20/2025 4:55 PM CDT [facility] OPIATE SCREEN (U) NEGATIVE NEGATIVE 025 4:55 PM CDT [facility] PHENCYCLIDINE PCP (U) NEGATIVE NEGATIVE 05/20/2025 4:55 PM CDT [facility] Comment: NOTE: RESULTS OF THIS DRUG SCREEN SHOULD BE USED FOR MEDICAL PURPOSES ONLY AND NOT FOR LEGAL OR EMPLOYMENT PURPOSES. POSITIVE RESULTS ARE NOT CONFIRMED. MEDICATIONS CONTAINING EPHEDRINE MAY CAUSE FALSE POSITIVE AMPHETAMINE CALL [phone], LAB, TO REQUEST CONFIRMATION TESTING. IF CREATININE IS <40 mg/dL. RECOLLECTION IS SUGGESTED. AMPHETAMINE- 500 NG/ML BARBITURATE- 200 NG/ML BENZODIAZEPINES- 200 NG/ML THC- 50 NG/ML COCAINE- 150 NG/ML METHADONE- 300 NG/ML OPIATE- 300 MG/ML PCP- 25 NG/ML CREATININE (U) 143.0 28 - 217 MG/DL 05/20/2025 4:55 PM CDT [facility] URINE SPECIMEN / Unknown 05/20/2025 3:42 PM CDT us Marci RODRIGUEZ URINE ORDERABLES Final Result [facility] [address] [place] [address], [place] [phone] * (ABNORMAL) URINALYSIS (05/20/2025 3:42 PM CDT) SPECIMEN TYPE URINE CLEAN CATCH 05/20/2025 3:41 PM CDT [facility] COLOR (U) LIGHT YELLOW 05/20/2025 4:45 PM CDT [facility] TRANSPARENCY CLEAR 05/20/2025 4:45 PM CDT [facility] SPECIFIC GRAVITY (U) 1.013 1.001 - 1.030 05/20/2025 4:45 PM CDT [facility] U PH 7.0 5.0 - 9.0 05/20/2025 4:45 PM CDT [facility] LEUKOCYTES (U) 500(A) NEGATIVE 05/20/2025 4:45 PM CDT [facility] NITRITES NEGATIVE NEGATIVE 05/20/2025 4:45 PM CDT [facility] PROTEIN RANDOM (U) NEGATIVE <30 MG/DL 05/20/2025 4:45 PM CDT [facility] GLUCOSE (U) NORMAL NORMAL MG/DL 05/20/2025 4:45 PM CDT [facility] KETONES MG/DL (U) NEGATIVE NEGATIVE MG/DL 05/20/2025 4:45 PM CDT [facility] UROBILINOGEN NORMAL NORMAL MG/DL 05/20/2025 4:45 PM CDT [facility] BILIRUBIN (U) NEGATIVE NEGATIVE MG/DL 05/20/2025 4:45 PM CDT [facility] BLOOD (U) NEGATIVE NEGATIVE 05/20/2025 4:45 PM CDT [facility] MUCUS RARE /LPF 05/20/2025 4:45 PM CDT [facility] WBC/HPF 26(H) <6 /HPF 05/20/2025 4:45 PM CDT [facility] RBC/HPF 2 <6 /HPF 05/20/2025 4:45 PM CDT [facility] SQUAMOUS EPITHELIALS RARE /HPF 05/20/2025 4:45 PM CDT [facility] URINE SPECIMEN OBTAINED BY CLEAN CATCH PROCEDURE / Unknown 05/20/2025 3:42 PM CDT us Marci RODRIGUEZ URINE ORDERABLES Final Result [facility] [address] [place] [address], [place] [phone] * (ABNORMAL) CULTURE URINE (05/20/2025 3:42 PM CDT) SPEC DESCRIPTION URINE CLEAN CATCH 05/20/2025 5:22 PM CDT [facility] SPECIAL REQUESTS NO SPECIAL REQUEST 05/20/2025 5:22 PM CDT [facility] CULTURE RESULT 1,000-9,000 COL/ML GRAM NEGATIVE RODS SAVING ISOLATE FOR 5 DAYS. CONTACT MICROBIOLOGY DEPARTMENT IF FURTHER WORKUP IS INDICATED. (A) 05/21/2025 12:34 PM CDT [facility] CULTURE RESULT 10,000-49,000 COL/ML STREPTOCOCCI, BETA HEMOLYTIC GROUP B SUSCEPTIBILTY NOT ROUTINELY PERFORMED. SAVING ISOLATE FOR 5 DAYS. CONTACT MICROBIOLOGY DEPARTMENT IF FURTHER WORKUP IS INDICATED. (A) 05/21/2025 12:34 PM CDT [facility] URINE SPECIMEN OBTAINED BY CLEAN CATCH PROCEDURE / Unknown 05/20/2025 3:42 PM CDT 05/20/2025 5:24 PM CDT us Silvia RODRIGUEZ MICROBIOLOGY - GENERAL ORDERAB LES Final Result [facility] [address] [place] [address], from Last 3 Months Insurance [facility] Care Teams Head Of Operation And Logistics Relationship Specialty Start Date End Date Mike Todd MD [address] [facility] [address] [place] [id number] PCP - General 05/31/25
--- NOTE | 2025-08-19 02:25 | ECG_ITS ---
Test Date: 2025-08-19 02:31:41 Measurements Intervals [place] Rate: 80 P: 45 AL: 151 QRS: 65 QRSD: 85 T: 2 QT: 346 QTc: 399 Interpretive Statements SINUS RHYTHM NONSPECIFIC T-WAVE ABNORMALITY ABNORMAL ECG Compared to ECG 08/12/2025 04:49:43 No significant changes Electronically Signed On 08-19-2025 07:36:10 CDT by Jefe Cooper M.D.
[2025-08-19 03:15] LABS: Hematocrit 37.1 % (37.0-47.0); Hemoglobin 11.9 g/dL (12.0-15.0); Immature Granulocyte Percent A 0.3 % (0-0.5); Lymphocytes Absolute Auto 2.30 K/mm3 (0.9-3.2); Mean Corpuscular HGB Conc 32.1 g/dl (32-36); Mean Corpuscular Hemoglobin 29.9 pg (26-34); Mean Corpuscular Volume 93.2 fl (80-100); Nucleated Red Blood Cells Absolute Auto 0.000 K/mm3 (0.0-0.012); Nucleated Red Blood Cells Perc 0.0 % (0.0-0.2); Platelet Count Result 288 k/mm3 (150-375); Red Blood Count 3.98 M/mm3 (4.2-5.4); White Blood Count 6.5 K/mm3 (4.5-10.0)
[2025-08-19 03:26] LABS: Alanine Aminotransferase 17 U/L (6-35); Albumin Level 4.3 g/dL (3.5-5.1); Alkaline Phosphatase 76 U/L (38-126); Anion Gap 9 mmol/L (4-12); Aspartate Amino Transferase 26 U/L (14-36); Bilirubin,Total 0.3 mg/dL (0.2-1.3); Blood Urea Nitrogen 13 mg/dL (7-17); Calcium 9.0 mg/dL (8.4-10.2); Carbon Dioxide 23 mmol/L (22-30); Chloride 108 mmol/L (98-107); Estimated CRCL calculation 140 ml/min; Estimated Glomerular Filt Rate > 60; Glucose 97 mg/dL (65-110); Potassium 3.8 mmol/L (3.4-5.0); Sodium 140 mmol/L (137-145); Total Protein 8.5 g/dL (6.3-8.2)
[2025-08-19 05:09] LABS: BEDSIDEPREGUCG Negative (Negative)
[2025-08-19 05:55] VITALS: BP 115/73; PULSE 78; RESP 18; TEMP 36.6; O2SAT 98
--- OUTSIDE RECORDS SUMMARY | 2025-08-19 06:12 | XMS_ITS | Clinical Summary ---
Author Organization [facility] Address [facility] [place] [address] Care Team Providers Care Chip Mixer Name Role Phone Mike Todd MD Primary Care Provider [phone] Allergies Active Allergy Reactions Criticality Noted Date [...] CDT - 08/05/2025 5:59 PM CDT Emergency [facility] [place] [address] Day Mendez MD Tingling Discharge Disposition: Home or Self Care (Routine Discharge) 08/05/2025 Travel 08/02/2025 4:52 PM CDT - 08/02/2025 7:36 PM CDT Emergency [facility] [place] [address] Lilly Albrecht MD Shortness Of Breath Discharge Disposition: Left Against Medical Advice 08/02/2025 Travel 07/31/2025 2:15 PM CDT - 07/31/2025 9:06 PM CDT Emergency [facility] [place] [address] Franklin Vargas MD Medical Problem Discharge Disposition: Home or Self Care (Routine Discharge) 07/31/2025 Travel 07/29/2025 9:40 PM CDT - 07/29/2025 11:41 PM CDT Emergency [facility] [place] [address] Maureen Benavides MD Medical Problem Discharge Disposition: Home or Self Care (Routine Discharge) 07/29/2025 Travel 07/28/2025 11:38 AM CDT - 07/28/2025 2:52 PM CDT Emergency [facility] [place] [address] Marcus Akhtar MD Dizziness; Blurred Vision; Headache; Ear Problem Discharge Disposition: Home or Self Care (Routine Discharge) 07/28/2025 Travel 07/18/2025 1:02 AM CDT - 07/18/2025 4:55 AM CDT Emergency [facility] [place] [address] Fredo Sy MD,PHD Headache Discharge Disposition: Home or Self Care (Routine Discharge) 07/18/2025 Travel 07/13/2025 Telephone [facility] Multispec[facility] - [facility] [address] [facility], [address] [place] [id number] Bogdan Chen MD Referral 05/31/2025 1:53 PM CDT - 05/31/2025 4:05 PM CDT Emergency [facility] [place] [address] Son Edmonds NP Anxiety Discharge Disposition: Home or Self Care (Routine Discharge) 05/31/2025 Travel 05/24/2025 Results Follow-Up [facility] [place] [address] Marci Correia PA CULTURE URINE 05/20/2025 4:18 PM CDT - 05/20/2025 7:47 PM CDT Emergency [facility] [place] [address] Silvia Lee PA Generalized Weakness Discharge Disposition: [...] PM CDT Legal Sex 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 08/05/2025 4:24 PM CDT Narrative [facility] - 08/05/2025 10:[address] [facility] [address] Test Date: 2025-08-05 Pat Name: ANGELINABRUCE GREGORY Department: 41 Room: EXAM15 Gender: Female Biology Manager: [id number] : 2000 Requested By: AMRIT AUGILAR Order Number: [id number] Reading : Saji Rdz Measurements Intervals [place] Rate: 84 P: 57 WA: 152 QRS: 63 QRSD: 90 T: 11 QT: 345 QTc: 409 Interpretive Statements SINUS RHYTHM NONSPECIFIC T-WAVE ABNORMALITY Compared to ECG 08/02/2025 17:27:04 Sinus arrhythmia no longer present Possible ischemia no longer present T-wave abnormality still present Procedure Note Saji Rdz MD - 08/05/2025 [facility] [address] Test Date: 2025-08-05 Pat Name: ANGELINA BRI Department: 41 Room: EXAM15 Gender: Female Biology Manager: [id number] : 2000 Requested By: AMRIT AGUILAR Order Number: [id number] Reading : Saji Marrus Measurements Intervals [place] Rate: 84 P: 57 WA: 152 QRS: 63 QRSD: 90 T: 11 QT: 345 QTc: 409 Interpretive Statements SINUS RHYTHM NONSPECIFIC T-WAVE ABNORMALITY Compared to ECG 08/02/2025 17:27:04 Sinus arrhythmia no longer present Possible ischemia no longer present T-wave abnormality still present Amrit Aguilar PA-C ECG ORDERABLES Final Resul t Performing Organization Address City/[facility]/ZIP Co de Phone Number [facility] ([facility] * TSH W/REFLEX (08/05/2025 4:03 PM CDT) Only the most recent of4 resultswithin the time period is included. Pathologist [facility] TSH 1.820 0.358 - 3.74 uIU/ML 08/05/2025 5:03 PM CDT [facility] Comment: HIGH DOSES OF BIOTIN MAY INTERFERE WITH THIS TEST RESULT. CORRELATION TO CLINICAL HISTORY AND PRESENTATION RECOMMENDED. FREE T4 NOT INDICATED 08/05/2025 4:03 PM CDT Amrit Aguilar PA-C LABORATORY Final Resul t Performing Organization Address [facility] de Phone Number [facility] [address] [place] [address], [place] [phone] * PARTIAL THROMBOPLASTIN TIME,PTT (08/05/2025 4:03 PM CDT) PTT 29.5 25.1 - 36.5 SEC 08/05/2025 4:41 PM CDT [facility] 08/05/2025 4:03 PM CDT Amrit Aguilar PA-C LABORATORY Final Resul t Performing Organization Address City/[facility]/ZIP Co de Phone Number [facility] [address] [place] [address], [place] [phone] * PROTIME/INR, VENOUS (08/05/2025 4:03 PM CDT) [facility] PROTIME 12.1 10.2 - 12.9 SEC 08/05/2025 4:41 PM CDT [facility] INR 1.1 08/05/2025 4:41 PM CDT [facility] Comment: Recommended INR Therapeutic Goals: 2.0-3.0 Routine Therapy 2.5-3.5 Mechanical Prosthetic Valves (High Risk) 08/05/2025 4:03 PM CDT Amrit Aguilar PA-C LABORATORY Final Resul t [facility] [address] [place] [address], * (ABNORMAL) COMPREHENSIVE METABOLIC PANEL (08/05/2025 4:03 PM CDT) Only the most recent of8 resultswithin the time period is included. [facility] GLUCOSE 95 70 - 99 MG/DL 08/05/2025 5:03 PM CDT [facility] BUN 8 7 - 18 MG/DL 08/05/2025 5:03 PM CDT [facility] CREATININE S/P/B 0.78 0.55 - 1.02 MG/DL 08/05/2025 5:03 PM CDT [facility] SODIUM S/P/B 139 136 - 145 MMOL/L 08/05/2025 5:03 PM CDT [facility] POTASSIUM S/P/B 3.1(L) 3.5 - 5.1 MMOL/L 08/05/2025 5:03 PM CDT [facility] CHLORIDE S/P/B 111 97 - 115 MMOL/L 08/05/2025 5:03 PM CDT [facility] CO2 19.9(L) 21 - 32 MMOL/L 08/05/2025 5:03 PM CDT [facility] CALCIUM S/P/B 9.2 8.5 - 10.1 MG/DL 08/05/2025 5:03 PM CDT [facility] BILIRUBIN TOTAL S/P/B 0.4 0.2 - 1.2 MG/DL 08/05/2025 5:03 PM CDT [facility] Comment: THIS ASSAY IS NOT RECOMMENDED FOR PATIENTS UNDERGOING TREATMENT WITH ELTROMBOPAG DUE TO THE POTENTIAL FOR FALSELY ELEVATED RESULTS. TOTAL PROTEIN S/P/B 8.1 6.4 - 8.2 G/DL 08/05/2025 5:03 PM T [facility] ALBUMIN S/P/B 3.6 3.4 - 5.0 G/DL 08/05/2025 5:03 PM CDT [facility] AST 17 15 - 37 U/L 08/05/2025 5:03 PM T [facility] ALT 20 14 - 55 U/L 08/05/2025 5:03 PM T [facility] ALKALINE PHOSPHATASE S/P/B 69 50 - 136 U/L 08/05/2025 5:03 PM T [facility] ANION GAP 8.1 2 - 10 MMOL/L 08/05/2025 5:03 PM CDT [facility] BUN CREATININE RATIO 10.2 6 - 26 08/05/2025 5:03 PM T [facility] A/G RATIO 0.8(L) 1.0 - 2.0 RATIO 08/05/2025 5:03 PM T [facility] GFR ESTIMATE >90 >90 ML/MIN/1.7 3 M2 08/05/2025 5:03 PM CDT [facility] Comment: NOTE: eGFR is not calculated for patients <18 years of age or gender unknown. This is an estimated GFR calculation using the new CKD EPI creatinine equation without race and so does not require a correction factor for race. This estimated GFR should not be used for calculating drug doses. 08/05/2025 4:03 PM CDT Amrit Aguilar PA-C LABORATORY Final Resul t [facility] [address] [place] [id number], * (ABNORMAL) CBC W/DIFF AUTOMATED (08/05/2025 4:03 PM CDT) Only the most recent of8 resultswithin the time period is included. WBC 7.02 4.5 - 11.0 x10'3/uL 08/05/2025 4:20 PM CDT [facility] RBC 4.13(L) 4.20 - 5.40 x10'6/uL 08/05/2025 4:20 PM CDT [facility] HGB 12.5 12.0 - 16.0 G/DL 08/05/2025 4:20 PM CDT [facility] HCT 37.8(L) 38.0 - 48.0 % 08/05/2025 4:20 PM CDT [facility] MCV 91.5 81.0 - 99.0 FL 08/05/2025 4:20 PM CDT [facility] MCH 30.3 27.0 - 31.0 PG 08/05/2025 4:20 PM CDT [facility] MCHC 33.1 32.0 - 36.0 G/DL 08/05/2025 4:20 PM CDT [facility] RDW 15.7(H) 11.5 - 14.5 % 08/05/2025 4:20 PM CDT [facility] PLT 317 130 - 400 x10'3/uL 08/05/2025 4:20 PM CDT [facility] MPV 9.4 9.3 - 12.2 FL 08/05/2025 4:20 PM CDT [facility] DIFFERENTIAL TYPE AUTOMATED DIFFERENTIAL 08/05/2025 4:20 PM CDT [facility] NEUTROPHILS % 73.4 % 08/05/2025 4:20 PM CDT [facility] LYMPHOCYTES % 21.1 % 08/05/2025 4:20 PM CDT [facility] MONOCYTES % 3.8 % 08/05/2025 4:20 PM CDT [facility] EOSINOPHILS 0.6 % 08/05/2025 4:20 PM CDT [facility] BASOPHILS 0.7 % 08/05/2025 4:20 PM CDT [facility] IMMATURE GRANS % 0.4 % 08/05/20 4:20 PM CDT [facility] ABS. NEUTROPHILS 5.15 1.80 - 7.70 x10'3/uL 08/05/2025 4:20 PM CDT [facility] ABS. LYMPHOCYTES 1.48 1.00 - 4.80 x10'3/uL 08/05/2025 4:20 PM CDT [facility] ABS. MONOCYTES 0.27 0.24 - 0.86 x10'3/uL 08/05/2025 4:20 PM CDT [facility] ABS. EOSINOPHILS 0.04 0.04 - 0.36 x10'3/uL 08/05/2025 4:20 PM CDT [facility] ABS. BASOPHILS 0.05 0.01 - 0.08 x10'3/uL 08/05/2025 4:20 PM CDT [facility] ABS. IMMATURE GRANULOCYTES 0.03 0.00 - 0.49 x10'3/uL 08/05/2025 4:20 PM CDT [facility] 08/05/2025 4:03 PM CDT us Amrit Aguilar PA-C LABORATORY Final Resul t Performing Organization Address City/[facility] Co de Phone Number [facility] [address] [place] [address], [place] [phone] * TROPONIN, QUANT (08/05/2025 4:03 PM CDT) Only the most recent of4 resultswithin the time period is included. TROPONIN I HIGH SENSITIVITY 3 <54 ng/L 08/05/2025 5:03 PM CDT [facility] Comment: HIGH DOSES OF BIOTIN, TROPONIN-SPECIFIC AUTOANTIBODIES, AND ANTIBODY THERAPY CONTAINING HAMA MAY INTERFERE WITH THIS TEST RESULT. CORRELATION TO CLINICAL HISTORY AND PRESENTATION RECOMMENDED. 08/05/2025 4:03 PM CDT us Amrit Aguilar PA-C LABORATORY Final Resul t Performing Organization Address City/[facility]/ZIP Co de Phone Number [facility] [address] [place] [address], [place] [phone] * MAGNESIUM (08/05/2025 4:03 PM CDT) Only the most recent of6 resultswithin the time period is included. MAGNESIUM 2.0 1.8 - 2.4 MG/DL 08/05/2025 5:03 PM CDT [facility] 08/05/2025 4:03 PM CDT us Amrit Aguilar PA-C LABORATORY Final Resul t [facility] [address] [place] [address], * XR CHEST PORTABLE (08/05/2025 2:43 PM CDT) Only the most recent of4 resultswithin the time period is included. Anatomical Region Laterality Modality Chest Radiographic Dayanna ging 08/05/2025 2:44 PM CDT Impressions 08/05/2025 2:46 PM CDT =====IMPRESSION:===== No acute findings. Ordered By: AMRIT AGUILAR Interpreted By: Quintin Ascencio MD, 08/05/2025 2:44 PM Narrative 08/05/2025 2:[address] [address] Examination: Chest x-ray 1 view Exam date/time: 08/05/2025 2:34 PM Reason For Exam: Shortness of breath. Comparison: 08/02/2025 Findings: Cardiomediastinal silhouette and pulmonary vasculature are within normal limits. No acute airspace consolidation, pleural effusion or pneumothorax. Lungs are somewhat underinflated. External artifacts are noted. Procedure Note Quintin Ascencio MD - 08/05/[address] [address] Examination: Chest x-ray 1 view Exam date/time: [...] 5:03 PM Narrative 08/02/2025 5:04 PM CDT [place] [address] Examination: XR CHEST PA+LAT Exam time: 08/02/2025 4:34 PM Clinical history: Short of breath. Comparison: Prior radiographs June 2025. Technique: One view chest. Findings: Cardiac size is normal. Trachea is in the midline. In the lung parenchyma no acute infiltrates. There is no pneumothorax or effusion. Osseous structures are intact. Procedure Note Boby Falk MD - 08/02/[address] [address] Examination: XR CHEST PA+LAT Exam time: 08/02/2025 [...] Falk MD, 08/02/2025 5:03 PM Alirio Jeffers JUNIOR ENGINEER GENERAL IMAGING Final Result * CK (CPK) (07/31/2025 2:35 PM CDT) CPK 79 21 - 215 U/L 07/31/2025 4:09 PM CDT [facility] 07/31/2025 2:35 PM CDT Marci RODRIGUEZ LABORATORY Final Result Performing Organization Address City/[facility]/ZIP Co de Phone Number [facility] [address] [place] [address], [place] [phone] * THYROXINE, FREE (FT4) (07/29/2025 10:12 PM CDT) Only the most recent of2 resultswithin the time period is included. FREE T4 0.90 0.76 - 1.46 NG/DL 07/29/2025 10:52 PM CDT [facility] 07/29/2025 10:1 2 PM CDT Silvia RODRIGUEZ LABORATORY Final Result [facility] [address] [place] [address], [place] [phone] * CT HEAD WO CON (07/28/2025 1:44 [...] 1:44 PM Narrative 07/28/2025 1:50 PM CDT [address] [address] Exam: CT head without contrast Exam Date/Time: [...] Procedure Note Izabella Almendarez MD - 07/28/2025 [facility] [address] [place], [place] [address] Exam: CT head without contrast Exam Date/Time: [...] - 500 ng{FEU}/mL 07/18/2025 1:44 AM CDT [facility] Comment: D-Dimer values less than or [...] Fredo Sy MD,PHD LABORATORY Final Resu lt [facility] [address] [place] [address], [place] [phone] * THYROID STIM HORMONE TSH (05/20/2025 4:31 PM CDT) TSH 1.850 0.358 - 3.74 uIU/ML 05/20/2025 5:11 PM CDT [facility] Comment: HIGH DOSES OF BIOTIN MAY INTERFERE WITH THIS TEST RESULT. CORRELATION TO CLINICAL HISTORY AND PRESENTATION RECOMMENDED. 05/20/2025 4:31 PM CDT Marci RODRIGUEZ LABORATORY Final Result [facility] [address] [place] [address], * (ABNORMAL) DRUG SCREEN RAPID (05/20/2025 3:42 PM CDT) Pathologist [facility] AMPHETAMINE (U) NEGATIVE NEGATIVE 4:55 PM CDT [facility] BARBITURATES SCREEN (U) NEGATIVE NEGATIVE 05/20/2025 4:55 PM CDT [facility] BENZODIAZEPINES SCREEN (U) NEGATIVE NEGATIVE 05/20/2025 4:55 PM CDT [facility] CANNABINOIDS SCREEN (U) POSITIVE(A) NEGATIVE 05/20/2025 4:55 PM CDT [facility] COCAINE METABOLITES (U) NEGATIVE NEGATIVE 05/20/2025 4:55 PM CDT [facility] METHADONE (U) NEGATIVE NEGATIVE 05/20/2025 4:55 PM CDT [facility] OPIATE SCREEN (U) NEGATIVE NEGATIVE 025 4:55 PM CDT [facility] PHENCYCLIDINE PCP (U) NEGATIVE NEGATIVE 05/20/2025 4:55 PM CDT [facility] Comment: NOTE: RESULTS OF THIS DRUG SCREEN SHOULD BE USED FOR MEDICAL PURPOSES ONLY AND NOT FOR LEGAL OR EMPLOYMENT PURPOSES. POSITIVE RESULTS ARE NOT CONFIRMED. MEDICATIONS CONTAINING EPHEDRINE MAY CAUSE FALSE POSITIVE AMPHETAMINE CALL [phone], LAB, TO REQUEST CONFIRMATION TESTING. IF CREATININE IS <40 mg/dL. RECOLLECTION IS SUGGESTED. AMPHETAMINE- 500 NG/ML BARBITURATE- 200 NG/ML BENZODIAZEPINES- 200 NG/ML THC- 50 NG/ML COCAINE- 150 NG/ML METHADONE- 300 NG/ML OPIATE- 300 MG/ML PCP- 25 NG/ML CREATININE (U) 143.0 28 - 217 MG/DL 05/20/2025 4:55 PM CDT [facility] URINE SPECIMEN / Unknown 05/20/2025 3:42 PM CDT us Marci RODRIGUEZ URINE ORDERABLES Final Result [facility] [address] [place] [address], [place] [phone] * (ABNORMAL) URINALYSIS (05/20/2025 3:42 PM CDT) SPECIMEN TYPE URINE CLEAN CATCH 05/20/2025 3:41 PM CDT [facility] COLOR (U) LIGHT YELLOW 05/20/2025 4:45 PM CDT [facility] TRANSPARENCY CLEAR 05/20/2025 4:45 PM CDT [facility] SPECIFIC GRAVITY (U) 1.013 1.001 - 1.030 05/20/2025 4:45 PM CDT [facility] U PH 7.0 5.0 - 9.0 05/20/2025 4:45 PM CDT [facility] LEUKOCYTES (U) 500(A) NEGATIVE 05/20/2025 4:45 PM CDT [facility] NITRITES NEGATIVE NEGATIVE 05/20/2025 4:45 PM CDT [facility] PROTEIN RANDOM (U) NEGATIVE <30 MG/DL 05/20/2025 4:45 PM CDT [facility] GLUCOSE (U) NORMAL NORMAL MG/DL 05/20/2025 4:45 PM CDT [facility] KETONES MG/DL (U) NEGATIVE NEGATIVE MG/DL 05/20/2025 4:45 PM CDT [facility] UROBILINOGEN NORMAL NORMAL MG/DL 05/20/2025 4:45 PM CDT [facility] BILIRUBIN (U) NEGATIVE NEGATIVE MG/DL 05/20/2025 4:45 PM CDT [facility] BLOOD (U) NEGATIVE NEGATIVE 05/20/2025 4:45 PM CDT [facility] MUCUS RARE /LPF 05/20/2025 4:45 PM CDT [facility] WBC/HPF 26(H) <6 /HPF 05/20/2025 4:45 PM CDT [facility] RBC/HPF 2 <6 /HPF 05/20/2025 4:45 PM CDT [facility] SQUAMOUS EPITHELIALS RARE /HPF 05/20/2025 4:45 PM CDT [facility] URINE SPECIMEN OBTAINED BY CLEAN CATCH PROCEDURE / Unknown 05/20/2025 3:42 PM CDT us Marci RODRIGUEZ URINE ORDERABLES Final Result [facility] [address] [place] [address], [place] [phone] * (ABNORMAL) CULTURE URINE (05/20/2025 3:42 PM CDT) SPEC DESCRIPTION URINE CLEAN CATCH 05/20/2025 5:22 PM CDT [facility] SPECIAL REQUESTS NO SPECIAL REQUEST 05/20/2025 5:22 PM CDT [facility] CULTURE RESULT 1,000-9,000 COL/ML GRAM NEGATIVE RODS SAVING ISOLATE FOR 5 DAYS. CONTACT MICROBIOLOGY DEPARTMENT IF FURTHER WORKUP IS INDICATED. (A) 05/21/2025 12:34 PM CDT [facility] CULTURE RESULT 10,000-49,000 COL/ML STREPTOCOCCI, BETA HEMOLYTIC GROUP B SUSCEPTIBILTY NOT ROUTINELY PERFORMED. SAVING ISOLATE FOR 5 DAYS. CONTACT MICROBIOLOGY DEPARTMENT IF FURTHER WORKUP IS INDICATED. (A) 05/21/2025 12:34 PM CDT [facility] URINE SPECIMEN OBTAINED BY CLEAN CATCH PROCEDURE / Unknown 05/20/2025 3:42 PM CDT 05/20/2025 5:24 PM CDT us Silvia RODRIGUEZ MICROBIOLOGY - GENERAL ORDERAB LES Final Result [facility] [address] [place] [address], from Last 3 Months Insurance [facility] Care Teams Chip Mixer Relationship Specialty Start Date End Date Mike Todd MD [address] [facility] [address] [place] [phone] PCP - General 05/31/25
[2025-08-19 06:23] VITALS: BP 119/72; PULSE 85; RESP 18; O2SAT 99
--- NOTE | 2025-08-19 06:29 | ED_ITS ---
HPI - Dizziness General Chief Complaint: Dizziness Stated Complaint: dizzy, weakness, shaking only when standing up Time Seen by Provider: 08/19/25 05:41 History of Present Illness HPI Narrative: 25-year-old otherwise healthy female presenting to the emergency department for episodic lightheadedness and shakiness. She states she feels like her blood sugars are going low throughout the day because she does not eat and only eats once a day. She states she noticed her symptoms when she does not eat for prolonged periods of time about segment 8 hours and then she suddenly gets up from a seated position she feels lightheaded to the point where she almost passes out and get some shakiness in her extremities that slowly resolved itself after she takes something with carbs or sugar. She states all her symptoms resolved pretty quickly after she drank some Pepsi or other sugar products. She does not have a glucometer but states that she previously was told she had hypoglycemia during 1 of these episodes in another ER visit. Does not have any chronic medical conditions otherwise and just want to make sure that her labs look okay because she already feels like she is aware of her diagnosis and has a PCP follow-up appointment in early August to discuss. Related Data Allergies Allergy/AdvReac Type Severity Reaction Status Date / Time metoclopramide AdvReac Anxiety Verified 08/12/25 06:41 Review of Systems 2 Review of Systems: As reviewed above in HPI Exam 2 Narrative: GENERAL: [Well-appearing, well-nourished, and in no acute distress.] HEAD: [Normocephalic, atraumatic.] EYES: [PERRLA and EOMI.] ENT: Nares clear, no rhinorrhea or epistaxis. Mucous membranes moist. NECK: Supple. CHEST: [Clear to auscultation. No respiratory distress.] HEART: [Regular rate and rhythm]. No murmur heard. [Normal peripheral pulses.] ABDOMEN: [Soft, nondistended], [nontender], [No rigidity or guarding] EXTREMITIES: Normal range of motion. [No edema.] SKIN: Warm, dry, no rash. NEURO: [No focal deficits]. Alert and oriented [x3.] PSYCH: [Normal mood and affect.] Course Vital Signs Vital signs: Vital Signs Temperature 37.5 C 08/19/25 00:58 Pulse Rate 92 08/19/25 00:58 Respiratory Rate 16 08/19/25 00:58 Blood Pressure 141/84 H 08/19/25 00:58 Pulse Oximetry 100 08/19/25 00:58 Oxygen Delivery Room Air 08/19/25 00:58 Temperature 36.6 C 08/19/25 05:55 Pulse Rate 85 08/19/25 06:23 Respiratory Rate 18 08/19/25 06:23 Blood Pressure 119/72 08/19/25 06:23 Pulse Oximetry 99 08/19/25 06:23 Oxygen Delivery Room Air 08/19/25 00:58 MDM - Dizziness MDM Narrative Medical decision making narrative: 25-year-old otherwise healthy female presenting to the emergency department for episodic lightheadedness and shakiness. She states she feels like her blood sugars are going low throughout the day because she does not eat and only eats once a day. She states she noticed her symptoms when she does not eat for prolonged periods of time about segment 8 hours and then she suddenly gets up from a seated position she feels lightheaded to the point where she almost passes out and get some shakiness in her extremities that slowly resolved itself after she takes something with carbs or sugar. She states all her symptoms resolved pretty quickly after she drank some Pepsi or other sugar products. She does not have a glucometer but states that she previously was told she had hypoglycemia during 1 of these episodes in another ER visit. Does not have any chronic medical conditions otherwise and just want to make sure that her labs look okay because she already feels like she is aware of her diagnosis and has a PCP follow-up appointment in early August to discuss. Patient is hemodynamically stable with normal vital signs. Blood work was drawn which is reassuring without any leukocytosis or significant anemia. Normal platelet count. Electrolytes are largely unremarkable. Normal BUN and creatinine. Glucose 97. Normal LFTs. test negative. Chest x-ray shows no acute cardiopulmonary process. EKG shows normal sinus rhythm, normal QTC, no ST segment changes. Patient re-evaluated doing well. Safe for discharge home at this time with return precautions and shared he has close PCP follow-up. Medical Records Attestation: I reviewed the patient's medical records. Lab Data Attestation: I reviewed the patient's lab results. 08/19/25 03:07 08/19/25 03:07 Labs: Lab Results 08/19/25 08/19/25 08/19/25 Range/Units 02:35 03:07 05:07 WBC 6.5 (4.5-10.0) K/mm3 RBC 3.98 L (4.2-5.4) M/mm3 Hgb 11.9 L (12.0-15.0) g/dL Hct 37.1 (37.0-47.0) % MCV 93.2 (80-100) fl MCH 29.9 (26-34) pg MCHC 32.1 (32-36) g/dl RDW 15.0 H (11.5-14.5) % Plt Count 288 (150-375) k/mm3 MPV 9.5 (7.4-10.4) fl Immature Gran % (Auto) 0.3 (0-0.5) % Neut % (Auto) 57.4 (45.5-73.1) % Lymph % (Auto) 35.4 (18.3-44.2) % [place] % (Auto) 5.4 (2.6-8.5) % Eos % (Auto) 0.9 (0-4.4) % Baso % (Auto) 0.6 (0.2-1.2) % Lymph # (Auto) 2.30 (0.9-3.2) K/mm3 [place] # (Auto) 0.4 (0.1-0.6) K/mm3 Eos # (Auto) 0.1 (0-0.3) K/mm3 Baso # (Auto) 0.0 (0.0-0.1) K/mm3 Abs Immat Gran (auto) 0.02 (0.00-0.031) K/mm3 Absolute Neuts (auto) 3.7 (1.3-6.7) K/mm3 Absolute Nucleated RBC 0.000 (0.0-0.012) K/mm3 Nucleated RBC % 0.0 (0.0-0.2) % Sodium 140 (137-145) mmol/L Potassium 3.8 (3.4-5.0) mmol/L Chloride 108 H (98-107) mmol/L Carbon Dioxide 23 (22-30) mmol/L Anion Gap 9 (4-12) mmol/L BUN 13 (7-17) mg/dL Creatinine 0.61 L (0.7-1.0) mg/dL Estim Creat Clear Calc 140 ml/min Estimated GFR > 60 (59 - ) Glucose 97 (65-110) mg/dL POC Capillary Glucose 95 (65-105) mg/dl Calcium 9.0 (8.4-10.2) mg/dL Total Bilirubin 0.3 (0.2-1.3) mg/dL AST 26 (14-36) U/L ALT 17 (6-35) U/L Alkaline Phosphatase 76 (38-126) U/L Total Protein 8.5 H (6.3-8.2) g/dL Albumin 4.3 (3.5-5.1) g/dL POC Urine HCG, Qual Negative (Negative) Discharge Plan Discharge Clinical Impression: Episodic lightheadedness Patient Disposition: Home Condition: Stable Instructions: Antibiotic Form Additional Instructions: Symptoms sound consistent with episodic lightheadedness from transient hypoglycemia. Take frequent smaller meals throughout the day rather than eating only once a day. Maintain good oral hydration. Return with any new or worsening/emergent concerns at any time otherwise keep your PCP follow-up appointment in August. Patient Language: Salvadorean Follow-up/Referrals: PHYSICIAN,ROAD MACHINE OPERATOR [Primary Care Provider, Internal Medicine] Time of Disposition: 06:06
== END 2025-08-19 06:23 | disposition home or self-care (01) ==
LOC: ANHED 06:10
PROVIDERS: Emergency Provider Student in an Organized Health Care Education/Training Program
DX: R42 Dizziness and giddiness (principal); R94.31 Abnormal electrocardiogram [ECG] [EKG]
CPT/HCPCS: 36415; 71046; 80053; 81025; 82948; 85025; 93005; 99284

== ENCOUNTER 2025-09-26 12:13 | Emergency (ER) | payer BC, SELFPAY ==
--- OUTSIDE RECORDS SUMMARY | 2025-09-26 12:17 | XMS_ITS | Data Portability ---
Author Organization [facility] Address [address] [place] [address] Care Team Providers Care Housekeeper Manager Name Role Phone JUNIOR FERGUSON Primary Care Provider Assessment No assessment recorded. Plan of Treatment Reminders Order Date Submit Date Provider Last Modified By Organization Details Last Modified Time Details Appointments Virtual Visit 20 2024 07:20A M [facility] Ricardo Ferguson MD Not available Not available Not available Lab iron + TIBC + ferritin, serum 2024 025 [facility], [address], [place], [address], 12/12/2024 10:30:44 HIV 1+2 Ab + HIV1 p24 Ag, quantitat son immunoass ay, serum 2024 025 [facility], [address], [place], [address], 12/12/2024 10:30:44 RPR (rapid plasma reagin), serum 2024 025 [facility], [address], [place], [address], 12/12/2024 10:30:44 CT + NG RNA, PCR, unspecifi ed specimen 2024 025 [facility], [address] , [place], [address], 12/12/2024 10:30:44 beta-HCG, quantitat son, serum or plasma 2024 025 [facility], [address] [facility], [place], [address], 12/12/2024 10:30:45 CBC w/ auto diff [address] [facility], [address] [facility], [place], [address], 12/12/2024 10:30:45 CMP, serum or plasma [address] [facility], [address] [facility], [place], [address], 12/12/2024 10:30:45 culture, urine [address] [facility], [address], [place], [address], 06/25/2024 10:08:14 CT + NG RNA, PCR, unspecifi ed specimen 2023 024 [facility], [address], [address], [place], [address], 06/23/2024 17:16:29 RPR (rapid plasma reagin), serum [address] [facility], [address], [place], [address], 06/25/2024 10:08:14 beta-HCG, qualitati ve, serum or plasma 2023 024 [facility], [address], [address], [place], [address], 06/25/2024 10:08:14 CBC w/ diff 2022 023 [facility], [address], [address], [place], [address], 04/27/2023 10:36:50 CMP, serum or plasma 2022 023 [email or web address], [address] [facility], [address], [place], [address], 04/27/2023 10:36:51 TSH + free T4, serum 2022 023 [email or web address], [address] [facility], [address], [place], [address], 04/27/2023 10:36:51 Referral None recorded. Procedures None recorded. Surgeries None recorded. Imaging None recorded. Medication Orders ferrous sulfate 325 mg (65 mg iron) tablet 2024 025 [facility] [address], [address] [facility], [place], [address], 12/05/2024 15:05:04 zolpidem 10 mg tablet [email or web address], [address] , [place], [address], 03/04/2025 16:34:19 Patient TargetsNo targets recorded. Patient Instructions Encounter Date Encounter Id Patient Instructions Last Modified By Organization Details Last Modified Time 06/18/2024 [id number] eating healthy foods: care instructions [email or web address] Not available 06/18/2024 10:55:15 12/05/2024 [id number] eating healthy foods: care instructions [email or web address] Not available 12/05/2024 15:04:57 06/24/2025 [id number] eating healthy foods: care instructions [facility] Not available 06/24/2025 16:03:42 Reason for Referral None Reported. Results Created Date Observation Date Name Description Value Unit Range Abnormal Flag Note LastModifiedBy Organization Detail LastModifiedTime 07/07/2006/29/2025 MRI, brain , w/wo contr ast No observ ation record ed. [email or web address] [facility] [address], [place], [address], 07/08/2025 13:22:51 Result Notes Documentation Provider Name and Address Organization Details Recorded Time Hcg, Qualitative, Serum : This document (1 of 1) was received from [email or web address] on 02/04/2025 through Direct Message along with the following message body content: You have received a 3 page fax at 02/04/2025 11:09:17 PM. * The Caller-ID for this fax is [phone]. If you have any questions regarding this message or your service contact Corporate Support: [place] Email: [email or web address] Phone: or Email: [email or web address] Phones: [phone] Thank you for using the [employer]NOW service! Not Available [facility] 02/06/2025 02:30:45 Mri, Brain, W/wo Contrast : This document (1 of 1) was received from [email or web address] on 07/07/2025 through Direct Message along with the following message body content: You have received a 2 page fax at 07/07/2025 6:33:25 PM. * The Caller-ID for this fax is [phone]. If you have any questions regarding this message or your service contact Corporate Support: [place] Email: [email or web address] Phone: or Email: [email or web address] Phones: [phone] Thank you for using the [employer]NOW service! Not Available [facility] 07/09/2025 02:30:46 Procedures Surgical History Date Name Laterality Status Provider Name and Address Organization Details Recorded Time 5 Breast Surgery (Lumpectomy, Biopsy, Implants) completed Shruthi Albabdoulaye [facility] 04/20/2023 10:19:31 Breast Surgery (Lumpectomy, Biopsy, Implants) completed Magda Hansen [facility] 05/27/2021 14:10:30 Imaging Results None recorded. Procedure Notes None recorded. Medical Equipment None Reported. Allergies Allergen ID Allergen Name Allergen Category Reaction Reaction Severity Criticality Documentation Date Start Date Code Code System Note Provider Name and Address Organization Details Recorded Time 2324965 Latex (substanc e) environme nt,medica tion hives Not available Not available 06/24/20252019 39165 8007 SNOMED Sophie Valdez [facility] 10:13:38 845111 latex environme nt,medica tion itching moderate Not available 04/20/2023 39079 91 RxNorm Sophieivonne Valdez [facility] 10:13:39 Medications Name Sig Start Date Stop Date Status Note LastModified by Organization Details LastModified Time megestrol 400 mg/10 mL (40 mg/mL) oral suspension 05/27 completed Not Available Not Available Not Available promethazin e-DM 6.25 mg-15 mg/5 mL oral syrup TAKE 5 ML BY MOUTH IN THE EVENING NEEDED FOR COUGH FOR 7 DAYS 04/20 completed Not Available Not Available Not Available ibuprofen 800 mg tablet 05/27 completed Not Available Not Available Not Available ketorolac 10 mg tablet 05/27 completed Not Available Not Available Not Available lorazepam 0.5 mg tablet Take 1 tablet twice a day by oral route as needed for 10 days. 08/30 completed Not Available Not Available Not Available meclizine 25 mg tablet 25 mg 3 times a day by oral route. 05/31 completed Not Available Not Available Not Available benzonatate 100 mg capsule TAKE 1 CAPSULE BY MOUTH THREE TIMES DAILY NEEDED FOR COUGH 06/18 completed Not Available Not Available Not Available cephalexin 500 mg capsule Take 1 capsule every 8 hours by oral route for 7 days. 05/19 completed Not Available Not Available Not Available hydroxyzine HCl 25 mg tablet TAKE 1 TABLET BY MOUTH THREE TIMES DAILY NEEDED FOR 30 DAYS active Not Available Not Available No t Available azithromyci n 200 mg/5 mL oral suspension TAKE 25 ML BY MOUTH A ONE TIME DOSE 12/05 completed Not Available Not Available Not Available zolpidem 10 mg tablet TAKE 1 TABLET BY MOUTH ONCE DAILY NEEDED 03/04 completed Not Available Not Available Not Available albuterol sulfate HFA 90 mcg/actuati on aerosol inhaler INHALE 2 PUFFS BY MOUTH EVERY 4 HOURS DIRECTED active Not Available Not Available No t Available ondansetron 4 mg disintegrat ing tablet 05/27 completed Not Available Not Available Not Available fluoxetine 20 mg capsule 03/09 completed Not Available Not Available Not Available doxycycline hyclate 100 mg tablet TAKE 1 TABLET BY MOUTH TWICE DAILY DIRECTED FOR 7 DAYS 12/05 completed Not Available Not Available Not Available amoxicillin 500 mg-potassiu m clavulanate 125 mg tablet TAKE 1 TABLET BY MOUTH EVERY 12 HOURS FOR 10 DAYS 10/31 completed Not Available Not Available Not Available meclizine 25 mg chewable tablet CHEW AND SWALLOW 1/2 (ONE-HALF ) TABLET THREE TIMES DAILY NEEDED FOR DIZZINESS active Not Available Not Available No t Available escitalopra m 10 mg tablet TAKE 1 TABLET BY MOUTH ONCE DAILY 06/24 completed Not Available Not Available Not Available Sprintec (28) 0.25 mg-0.035 mg tablet 05/27 completed Not Available Not Available Not Available nitrofurant oin monohydrate /macrocryst als 100 mg capsule 05/27 completed Not Available Not Available Not Available zolpidem ER 6.25 mg tablet,exte nded release,mul tiphase TAKE 1 TABLET BY MOUTH ONCE DAILY active Not Available Not Available No t Available promethazin e-DM 06/18 completed Not Available Not Available Not Available FeroSul 325 mg (65 mg iron) tablet TAKE 1 TABLET BY MOUTH ONCE DAILY active Not Available Not Available No t Available ferrous sulfate 15 mg iron (75 mg)/mL oral drops 10/31 completed Not Available Not Available Not Available Pirmella 1 mg-35 mcg tablet Take 1 tablet every day by oral route as directed. 03/09 completed Not Available Not Available Not Available Vitals Date Recorded Body height Body mass index (BMI) Body weight Pain severity - 0-10 verbal numeric rating [Score] - Reported Provider Name and Address Organization Details Last Updated DateTime 12/05/2024 162.56 cm 41.9 kg/m2 210653.94 g Olive Shields [facility] 12/05/2024 13:33:23 Date Recorded Body height Body mass index (BMI) Body weight Provider Name and Address Organization Details Last Updated DateTime 04/20/2023 162.56 cm 33.6 kg/m2 13192.1 g [facility] 04/20/2023 10:19:09 Date Recorded Body height Body mass index (BMI) Body weight Oxygen saturation Oxygen saturation in Arterial blood by Pulse oximetry Heart rate Systolic And Diastolic Provider Name and Address Organization Details Last Updated DateTime 162.56 cm 41.7 kg/m2 168572. 95 g 99 % 99 % 60 /min 120/73 mm[facility]Hg[facility] 12:[facility]32 Date Recorded Body height Body mass index (BMI) Body weight Provider Name and Address Organization Details Last Updated DateTime 06/18/2024 162.56 cm 37.8 kg/m2 21736.32 g [facility] 06/18/2024 10:45:23 Date Recorded Body height Body mass index (BMI) Body weight Provider Name and Address Organization Details Last Updated DateTime 06/24/2025 162.56 cm 40.3 kg/m2 619243.21 g [facility] 06/24/2025 10:16:39 Social History Question Answer Notes LastModified by Organizat ion Details LastModified Time Tobacco Smoking Status [facility] 14:10:26 Do You Have An Advance Directive? No Information not available 04/20/2023 Animal Exposure? No Informat ion not available 04/20/2023 Are You Blind Or Do You Have Difficulty Seeing? Yes Information not available 05/27/2021 Is Blood Transfusion Acceptable In An Emergency? Yes Information not available 05/27/2021 What Is Your Level Of Caffeine Consumption? Moderate Information not available 05/27/2021 Are You Deaf Or Do You Have Serious Difficulty Hearing? No Information not available 05/27/2021 What Type Of Diet Are You Following? REGULAR Information not available 05/27/2021 Which Illicit Or Recreational Drugs Have You Used? Marijuana Information not available 04/20/2023 Which Of Your Hands Is Dominant? Right Information not available 05/27/2021 How Many Years Have You Used Illicit Or Recreational Drugs? 2 Information not available 04/20/2023 Does The Patient Have Fever OR Cough OR Shortness Of Breath? No Information not available 05/27/2021 In The Last 14 Days, Has The Patient Had Contact With A COVID-19 Positive Patient Or A COVID-19 Suspect Patient Awaiting Test Results? No Information not available 05/27/2021 If Pulse Oximetry Was Done: Is The Patient's Sp02 Less Than 93% On Room Air? No Information not available 05/27/2021 Does The Patient Have At Least TWO Of These Symptoms? Diarrhea, Chills, Muscle Pain, Repeated Shaking & Chills, Headache, Sore Throat, Or New Loss Of Taste/Smell No Information not available 05/27/2021 Marital Status Single Informatio n not available 04/20/2023 What Was The Date Of Your Most Recent Tobacco Screening? 06/24/2025 [email or web address] Information not available 06/23/2025 Do You Have Any Pets? No Information not available 04/20/2023 What Is Your Relationship Status? Single Information not available 04/20/2023 General Stress Level High Information not available 04/20/2023 Has Tobacco Cessation Counseling Been Provided? No Information not available 04/20/2023 How Many Days In The Past Year Have You Consumed 4 Or More Drinks? 10 [email or web address] Information no t available 12/05/2024 Sex: Unknown Functional Status Question Answer Note LastModified by Organizat ion Details LastModified Time Do you use any illicit or recreational drugs? Yes Information not available 04/20/2023 What is your level of alcohol consumption? Occasional Information not available 04/20/2023 Are you currently employed? Yes Information not available 04/20/2023 Are you able to care for yourself independently? 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 Moderate [email or web address] Information not available 05/20/2025 Mental Status Question Answer Note LastModified by Organization D etails LastModified Time Do you feel stressed (tense, restless, nervous, or anxious, or unable to sleep at night)? CX78384-1 Information not available 04/20/2023 Family History Relationship Description Onset Age of this Age Resolved Age Notes LastModified by Organization Details LastModified Time Mother Hyperlipidem ia sdelavega Not available 2020 14:10:12 Mother Hypertensive disorder sdelavega Not available 2020 14:10:12 Mother Deep venous thrombosis Not available 04/20 10:19:28 Mother Family history of stroke Not available 2022 10:19:28 Mother Migraine Not available 04/20/2023 10:19:28 Mother Heart disease Not available 2022 10:19:28 Paternal Grandmother Malignant neoplasm of breast sdelavega Not available 2020 14:10:12 Father Substance abuse Not available 2022 10:19:28 Medical History Condition Response High Cholesterol (Hyperlipidemia) Y Blood Clot (Deep Vein Thrombosis) Y Anemia Y High Blood Pressure (Hypertension) Y Anxiety Y Prior Blood Transfusion Y Bleeding Problems Y Heart Rhythm Problem (Palpitations) Y Overweight/Obesity Y Depression Y Gynecological History Statement/Question Response Total # of Births 0 Abnormal Pap N Abnormal Mammogram N Date of LMP 12/01/2024 Total # of Miscarriages 1 Age at Menarche 11 Current Control Method Condoms Total # of Abortions 0 Total # of Pregnancies 1 Obstetrics History GPAL:G 0 P 0 0 0 0 Past Encounters Encounter ID Performer Location Encounter Start Date Encounter Closed Date Diagnosis/Indication Diagnosis SNOMED-CT Code Diagnosis ICD10 Code Diagnosis IMO Codes Diagnosis Note [id number] MD Taye Lira [address] [place] [address] 05/27/2021 14:06:37 05/27/2021 14:59:27 Obesity 881500948 E66.9 Z68.36 Diet: 1800 Calories Low Glycemic Index Diet Exercise: Work up to 30 min 5x/week as tolerated Depression screening 171 028214 Z13.31 see PQH-9 result in body of chart Screening Positive: Overall Plan discussed with Pt Contracept ion care management 496414303 Z30.9 -will refill the pirmella Systolic murmur 23177257 R01.1 -never been identified prior-vane chowdary brother also had a heart murmur Irregular periods 842868 07 N92.6 N92.0 -will place [employer] referral-c ontinue control for now [id number] MD Taye Lira [address],[facility] [address] [place] [address] 03/09/2022 13:21:39 03/09/2022 15:51:42 Depression screening 783593755 Z13.31 see PQH-9 result in body of chart Screening Negative Obesity 220577464 Z68.36 Diet: 1800 Calories Low Glycemic Index Diet Exercise: Work up to 30 min 5x/week as tolerated Insomnia 465117886 G47.0 0 will do zolpidem refillcont rolled contract was filled out Irregular periods 181035 07 N92.6 N92.0 -will place [employer] referral-c ontinue control for now [id number] MD Taye Lira [address],[facility] [address] [place] [address] 10/31/2022 09:27:33 10/31/2022 14:49:20 Depression screening 564714418 Z13.31 see PQH-9 result in body of chart Screening Negative Insomnia 774087632 G47.0 0 will do zolpidem refillcont rolled contract was filled out Mass of right breast 542 4396197 3592757 N63.10 -I explained to the patient that we are going to need to reach out to the facility she mentioned above in regards to finding some in network insurance possibilit y for her areas of concern. She will remain in [place] at least through January and so waiting until that point seems a little bit too long. We will reach out to the facility she mentioned and see if we can find a imaging facility that would build to facilitate a mammogram of the right-hand side as well as ultrasound [id number] MD Taye Lira [address] [place] [address] 04/20/2023 10:17:39 04/20/2023 10:50:49 Depression screening 283934984 Z13.31 see PQ-9 result in body of chart Screening Negative Body mass index 30+ - obesity 572289862 Z68.33 Anemia 204321716 D64.9 labs as noted below Fatigue 84545419 R53.83 Labs as noted below [id number] MD Taye Lira [address] [place] [address] 06/18/2024 10:43:35 06/18/2024 11:50:23 Depression screening 245217529 Z13.31 see PQH-9 result in body of chart Screening Negative Obesity 724656962 E66.9 Diet: 1800 Calories Low Glycemic Index Diet Exercise: Work up to 30 min 5x/week as tolerated Venereal d isease screening 214790303 Z11.3 no new sexual partners, however current partner may have had relations with otherspt wants testing for std Amenorrhea 68637090 N91. 2 6 days late on periodwill do blood preg test Dysuria 66833434 R30.0 check urin [id number] MD Taye Lira [address] [place] [address] 12/05/2024 13:30:50 12/05/2024 17:11:50 Severe obesity 3455773890 9104 E66.01 Z68.41 Insomnia 799140834 G47.0 0 will do zolpidem refillcont rolled contract was filled out previously Depression screening 171 758742 Z13.31 see PQ-9 result in body of chart Screening Negative Iron deficiency 88251907 E61.1 sentchecki ng labs Venereal d isease screening 515344569 Z11.3 no new sexual partners, however current partner may have had relations with otherspt wants testing for std Fatigue 89412164 R53.83 Labs as noted below Amenorrhea 99710858 N91. 2 6 days late on periodwill do blood preg test [id number] MD CHRISTOPHER Lira_Carlos ye [address] [place] [address] 05/20/2025 11:59:05 05/20/2025 13:14:02 Depression screening 565866332 Z13.31 see [facility]-9 result in body of chart Screening Negative Body mass index 40+ - severely obese 337191237 Z68.41 73776244 Lightheadedness 45626097 8 R42 62893 either 2/2 thc or hydroxyzin ecessation from both for nowincreas e fluidsmoni tor symptoms I have thoroughly advised the patient that if their clinical condition deteriorat es or if they develop any new or concerning symptoms, they are to seek immediate medical attention, including presenting to the nearest emergency room for further evaluation . I have emphasized the critical importance of addressing any sudden or significan t changes in their health without delay. The patient has verbalized understand ing of this recommenda tion and acknowledg es the need for prompt care in the event of an urgent or emergent situation [id number] MD Taye Lira [address] [address] [place] [address] 06/24/2025 10:07:13 06/24/2025 17:26:22 Depression screening 094129913 Z13.31 see [facility]-9 result in body of chart Screening Negative Severe obesity 438055458 1 9104 E66.01 Z68.41 Vertigo 733333661 R42 64061 etiology unclearmri upcomingma y need neurology referralca nnot exam patient in person since shes out of state I have thoroughly advised the patient that if their clinical condition deteriorat es or if they develop any new or concerning symptoms, they are to seek immediate medical attention, including presenting to the nearest emergency room for further evaluation . I have emphasized the critical importance of addressing any sudden or significan t changes in their health without delay. The patient has verbalized understand ing of this recommenda tion and acknowledg es the need for prompt care in the event of an urgent or emergent situation Frequent headache 209970 003 R51.9 70536033 Health Concerns Section Related Observation LastModified by Organization Detai ls LastModified Time None Recorded Concern Status LastModified by Organization Details LastModified Time None Recorded Advance Directives Directive N: Payers Insurance Date Sequence Insurance Name Policy Number Policy Russ Covered Member ID Russ Member ID Guarantor Name 05/19/2025 1 [employer] (PPO) [id number] Joya Henry [id number] Rebeka Roverto 10/31/2022 SLIDING FEE SCHEDULE - DISCOUNT Rebeka Roverto 05/20/2025 1 [employer] [id number] Rebeka Barrientosving [id number] Rebeka Roverto 05/20/2025 1 [employer] [id number] Rebeka Barrientosving [id number] Rebeka Roverto 07/16/2025 1 [employer]) Joya Blanco [id number] Rebeka Roverto 05/20/2025 1 [facility] (MEDICAID REPLACEMENT - HMO) Rebeka Barrientosving [id number] Rebeka Barrientosving Notes Date Note Type Note Provider Name and Address Organization Details Recorded Time 3 text/html 1) Method of Visit Video and Audio2) Modality used: MS teams3) Time Spent in communication with patient 8 min 34 sec4) Patient Consent for telemedicine visit Patient was consented5) Patient and provider location: Pt location was at her home in [place], [place]. . Provider location at work. 22 yo FHere today for virtual appointmentThe patient with a history of anemia, she like to repeat blood work she think she is more tired. She also needs a refill of her zolpidem which she is consistent and stable on. [facility] [place] [address], [place], [address], [facility] 04/20/2023 10:54:27 4 text/html 23-year-old female practice today via virtual visit secondary to several weeks of symptoms. She reports that vaginal discharge Green/yellow. She also reported some itching practice. She does endorse a sexual but may have had a partners medications only been active with her current partner. Patient also has had a light period up to 7 days and she wants to do some blood testing for that. She otherwise is doing well at this time she is out of state right now in [place] and so I explained to her that we will need to do the orders through [facility] [place] [address], [place], [address], [facility] 06/18/2024 11:02:09 5 text/html 1) Method of Visit - MS TEAMS 2) Modality used: MS teams - virtual 3) Time Spent in communication with patient 11 min 34 sec 4) Patient Consent for telemedicine visit Patient was consented 5) Patient and provider location: Pt location was at her home. Provider location at work. Here via virtual viistDoing well today execpt some dizziness - 3-4 weeks, no etiololgy she can think off.hx of low iron / anemiashe has had irregular periodsneeds [place] [address], [place], [address], [facility] [place] 12/05/2024 15:12:15 5 text/html 1) Method of Visit Video and Audio 2) Modality used: MS teams 3) Time Spent in communication with patient 13 min 50 sec 4) Patient Consent for telemedicine visit Patient was consented 5) Patient and provider location: Pt location was at her home. Provider location at work. 24 yo FHere today via virtualCC: lightheadednessreports last weekend took several hits of thc blunt and began feeling very anxious/dizzyit let to ER visit where fluids given and oxygen requiredshe has previous use before and never had this reactionApparently she tried the same batch of weed again with identical reaction - went to ER againCalled the conditioning room worker physician and hydroxyzine was givenPt seeking [place] advice [place] [address], [place], [address], [facility] [place] 05/20/2025 12:47:41 5 text/html 1) Method of Visit Video and Audio 2) Modality used: MS TEAMS 3) Time Spent in communication with patient 14 min 01 sec 4) Patient Consent for telemedicine visit Patient was consented 5) Patient and provider location: Pt location was at her home. Provider location at work. 24 yo F here today for follow upShe still has been dealing with verigo / dizzinessMonth history or so but worse recentlyMRI was placed for her and recently approved - advised pt to move forward with thatShe needs some paperwork filled out for this as well. [facility] [place] [address] [facility] [address], [place], [address], [facility] [place] 06/24/2025 16:04:04 OBGyn Episode No OBEpisode recorded.
--- OUTSIDE RECORDS SUMMARY | 2025-09-26 12:17 | XMS_ITS | Clinical Summary ---
Author Organization [facility] Address [facility] [place] [address] Care Team Providers Care Mother Superior Name Role Phone Mike Todd MD Primary Care Provider [phone] Allergies Active Allergy Reactions Criticality Noted Date [...] CDT - 08/05/2025 5:[address] [facility] [place] [address] Day Mendez MD Tingling Discharge Disposition: Home or Self Care (Routine Discharge) 08/05/2025 Travel 08/02/2025 4:52 PM CDT - 08/02/2025 7:[address] [facility] [place] [address] Lilly Albrecht MD Shortness Of Breath Discharge Disposition: Left Against Medical Advice 08/02/2025 Travel 07/31/2025 2:15 PM CDT - 07/31/2025 9:[address] [facility] [place] [address] Franklin Vargas MD Medical Problem Discharge Disposition: Home or Self Care (Routine Discharge) 07/31/2025 Travel 07/29/2025 9:40 PM CDT - 07/29/2025 11:[address] [facility] [place] [address] aMureen Benavides MD Medical Problem Discharge Disposition: Home or Self Care (Routine Discharge) 07/29/2025 Travel 07/28/2025 11:38 AM CDT - 07/28/2025 2:[address] [facility] [place] [address] Marcus Akhtar MD Dizziness; Blurred Vision; Headache; Ear Problem Discharge Disposition: Home or Self Care (Routine Discharge) 07/28/2025 Travel 07/18/2025 1:02 AM CDT - 07/18/2025 4:[address] [facility] [place] [address] Fredo Sy MD,PHD Headache Discharge Disposition: Home or Self Care (Routine Discharge) 07/18/2025 Travel 07/13/2025 Telephone [facility] - [facility] [address], [address] [place] [phone] Bogdan Chen MD Referral from Last 3 Months Family History Medical [...] PM CDT Legal Sex Female 9:05 PM [employer] Gender Identity Not on file Sexual Orientation [...] - 19+ 3-dose series) 2018 PHQ-2 (Physician [place]) 11/26/2024 COVID-19 Vaccine ( season) 2025 Influenza Adult (#1) 2025 09/14/2018, 08/29/20 17 Hepatitis A Vaccines Aged Out No long er eligible based on patient's age to complete this topic Meningococcal B Vaccine Aged Out No l [...] W/DIFF AUTOMATED STAT 07/18/2025 1:24 AM CDT from Last 3 Months Results * ECG 12 lead (08/05/2025 4:24 PM CDT) Only the most recent of6 resultswithin the time period is included. 08/05/2025 4:24 PM CDT Narrative [facility] - 08/05/2025 10:[address] [facility] [address] [place] [address] Test Date: 2025-08-05 Pat Name: ANGELINA GREGORY Department: 41 Room: EXAM15 Gender: Female Historical Guide: [id number] : 2000 Requested By: AMRIT AGUILAR Order Number: [id number] Reading : Saji Rdz Measurements Intervals Leiter Rate: 84 P: 57 ND: 152 QRS: 63 QRSD: 90 T: 11 QT: 345 QTc: 409 Interpretive Statements SINUS RHYTHM NONSPECIFIC T-WAVE ABNORMALITY Compared to ECG 08/02/2025 17:27:04 Sinus arrhythmia no longer present Possible ischemia no longer present T-wave abnormality still present Procedure Note Saji Rdz MD - 08/05/2025 [facility] [address] Test Date: 2025-08-05 Pat Name: ANGELINA GREGORY Department: 41 Room: EXAM15 Gender: Female Historical Guide: [id number] : 2000 Requested By: AMRIT AGUILAR Order Number: [id number] Reading : Saji Rdz Measurements Intervals Leiter Rate: 84 P: 57 ND: 152 QRS: 63 QRSD: 90 T: 11 QT: 345 QTc: 409 Interpretive Statements SINUS RHYTHM NONSPECIFIC T-WAVE ABNORMALITY Compared to ECG 08/02/2025 17:27:04 Sinus arrhythmia no longer present Possible ischemia no longer present T-wave abnormality still present us Amrit Aguilar PA-C ECG ORDERABLES Final Resul t [facility] * TSH W/REFLEX (08/05/2025 4:03 PM CDT) Only the most recent of4 resultswithin the time period is included. TSH 1.820 0.358 - 3.74 uIU/ML 08/05/2025 5:03 PM CDT [facility] Comment: HIGH DOSES OF BIOTIN MAY INTERFERE WITH THIS TEST RESULT. CORRELATION TO CLINICAL HISTORY AND PRESENTATION RECOMMENDED. FREE T4 NOT INDICATED 08/05/2025 4:03 PM CDT us Amrit Aguilar PA-C LABORATORY Final Resul t Performing Organization Address [facility] Co de Phone Number [facility] [address] [place] [address], [place] [phone] * PARTIAL THROMBOPLASTIN TIME,PTT (08/05/2025 4:03 PM CDT) PTT 29.5 25.1 - 36.5 SEC 08/05/2025 4:41 PM CDT [facility] 08/05/2025 4:03 PM CDT Amrit Aguilar PA-C LABORATORY Final Resul t Performing Organization Address [facility] Co de Phone Number [facility] [address] [place] [address], [place] [phone] * PROTIME/INR, VENOUS (08/05/2025 4:03 PM CDT) PROTIME 12.1 10.2 - 12.9 SEC 08/05/2025 4:41 PM CDT [facility] INR 1.1 08/05/2025 4:41 PM CDT [facility] Comment: Recommended INR Therapeutic Goals: 2.0-3.0 Routine Therapy 2.5-3.5 Mechanical Prosthetic Valves (High Risk) 08/05/2025 4:03 PM CDT us Amrit Aguilar PA-C LABORATORY Final Resul t [facility] [address] [place] [address], [place] [phone] * (ABNORMAL) COMPREHENSIVE METABOLIC PANEL (08/05/2025 4:03 PM CDT) Only the most recent of6 resultswithin the time period is included. [facility] GLUCOSE 95 70 - 99 MG/DL 08/05/2025 5:03 PM CDT [facility] BUN 8 7 - 18 MG/DL 08/05/2025 5:03 PM CDT [facility] CREATININE S/P/B 0.78 0.55 - 1.02 MG/DL 08/05/2025 5:03 PM CDT [facility] SODIUM S/P/B 139 136 - 145 MMOL/L 08/05/2025 5:03 PM CDT [facility] POTASSIUM S/P/B 3.1(L) 3.5 - 5.1 MMOL/L 08/05/2025 5:03 PM CDT [facility] CHLORIDE S/P/B 111 97 - 115 MMOL/L 08/05/2025 5:03 PM CDT [facility] CO2 19.9(L) 21 - 32 MMOL/L 08/05/2025 5:03 PM CDT [facility] CALCIUM S/P/B 9.2 8.5 - 10.1 MG/DL 08/05/2025 5:03 PM CDT [facility] BILIRUBIN TOTAL S/P/B 0.4 0.2 - 1.2 MG/DL 08/05/2025 5:03 PM CDT [facility] Comment: THIS ASSAY IS NOT RECOMMENDED FOR PATIENTS UNDERGOING TREATMENT WITH ELTROMBOPAG DUE TO THE POTENTIAL FOR FALSELY ELEVATED RESULTS. TOTAL PROTEIN S/P/B 8.1 6.4 - 8.2 G/DL 08/05/2025 5:03 PM CDT [facility] ALBUMIN S/P/B 3.6 3.4 - 5.0 G/DL 08/05/2025 5:03 PM CDT [facility] AST 17 15 - 37 U/L 08/05/2025 5:03 PM CDT [facility] ALT 20 14 - 55 U/L 08/05/2025 5:03 PM CDT [facility] ALKALINE PHOSPHATASE S/P/B 69 50 - 136 U/L 08/05/2025 5:03 PM CDT [facility] ANION GAP 8.1 2 - 10 MMOL/L 08/05/2025 5:03 PM CDT [facility] BUN CREATININE RATIO 10.2 6 - 26 08/05/2025 5:03 PM CDT [facility] A/G RATIO 0.8(L) 1.0 - 2.0 RATIO 08/05/2025 5:03 PM T [facility] GFR ESTIMATE >90 >90 ML/MIN/1.7 3 M2 08/05/2025 5:03 PM CDT [facility] Comment: NOTE: eGFR is not calculated for patients <18 years of age or gender unknown. This is an estimated GFR calculation using the new CKD EPI creatinine equation without race and so does not require a correction factor for race. This estimated GFR should not be used for calculating drug doses. 08/05/2025 4:03 PM CDT us Amrit Aguilar PA-C LABORATORY Final Resul t [facility] [address] [place] [address], [place] [phone] * (ABNORMAL) CBC W/DIFF AUTOMATED (08/05/2025 4:03 PM CDT) Only the most recent of6 resultswithin the time period is included. [facility] WBC 7.02 4.5 - 11.0 x10'3/uL 08/05/2025 4:20 PM CDT [facility] RBC 4.13(L) 4.20 - 5.40 x10'6/uL 08/05/2025 4:20 PM CDT [facility] HGB 12.5 12.0 - 16.0 G/DL 08/05/2025 4:20 PM CDT [facility] HCT 37.8(L) 38.0 - 48.0 % 08/05/2025 4:20 PM CDT [facility] MCV 91.5 81.0 - 99.0 FL 08/05/2025 4:20 PM CDT [facility] MCH 30.3 27.0 - 31.0 PG 08/05/2025 4:20 PM CDT [facility] MCHC 33.1 32.0 - 36.0 G/DL 08/05/2025 4:20 PM CDT [facility] RDW 15.7(H) 11.5 - 14.5 % 08/05/2025 4:20 PM CDT [facility] PLT 317 130 - 400 x10'3/uL 08/05/2025 4:20 PM CDT [facility] MPV 9.4 9.3 - 12.2 FL 08/05/2025 4:20 PM CDT [facility] DIFFERENTIAL TYPE AUTOMATED DIFFERENTIAL 08/05/2025 4:20 PM CDT [facility] NEUTROPHILS % 73.4 % 08/05/2025 4:20 PM CDT [facility] LYMPHOCYTES % 21.1 % 08/05/2025 4:20 PM CDT [facility] MONOCYTES % 3.8 % 08/05/2025 4:20 PM CDT [facility] EOSINOPHILS 0.6 % 08/05/2025 4:20 PM CDT [facility] BASOPHILS 0.7 % 08/05/2025 4:20 PM CDT [facility] IMMATURE GRANS % 0.4 % 08/05/20 4:20 PM CDT [facility] ABS. NEUTROPHILS 5.15 1.80 - 7.70 x10'3/uL 08/05/2025 4:20 PM CDT [facility] ABS. LYMPHOCYTES 1.48 1.00 - 4.80 x10'3/uL 08/05/2025 4:20 PM CDT [facility] ABS. MONOCYTES 0.27 0.24 - 0.86 x10'3/uL 08/05/2025 4:20 PM CDT [facility] ABS. EOSINOPHILS 0.04 0.04 - 0.36 x10'3/uL 08/05/2025 4:20 PM CDT [facility] ABS. BASOPHILS 0.05 0.01 - 0.08 x10'3/uL 08/05/2025 4:20 PM CDT [facility] ABS. IMMATURE GRANULOCYTES 0.03 0.00 - 0.49 x10'3/uL 08/05/2025 4:20 PM CDT [facility] 08/05/2025 4:03 PM CDT us Amrit Aguilar PA-C LABORATORY Final Resul t [facility] [address] [place] [address], * TROPONIN, QUANT (08/05/2025 4:03 PM CDT) Only the most recent of4 resultswithin the time period is included. TROPONIN I HIGH SENSITIVITY 3 <54 ng/L 08/05/2025 5:03 PM CDT [facility] Comment: HIGH DOSES OF BIOTIN, TROPONIN-SPECIFIC AUTOANTIBODIES, AND ANTIBODY THERAPY CONTAINING HAMA MAY INTERFERE WITH THIS TEST RESULT. CORRELATION TO CLINICAL HISTORY AND PRESENTATION RECOMMENDED. 08/05/2025 4:03 PM CDT us Amrit Aguilar PA-C LABORATORY Final Resul t Performing Organization Address [facility]/ZIP Co de Phone Number [facility] [address] [place] [address], * MAGNESIUM (08/05/2025 4:03 PM CDT) Only the most recent of5 resultswithin the time period is included. Pathologist [facility] MAGNESIUM 2.0 1.8 - 2.4 MG/DL 08/05/2025 5:03 PM CDT [facility] 08/05/2025 4:03 PM CDT us Amrit Aguilar PA-C LABORATORY Final Resul t [facility] [address] [place] [address], [place] [phone] * XR CHEST PORTABLE (08/05/2025 2:43 PM CDT) Only the most recent of2 resultswithin the time period is included. Anatomical Region Laterality Modality Chest Radiographic Dayanna ging 08/05/2025 2:44 PM CDT Impressions 08/05/2025 2:46 PM CDT =====IMPRESSION:===== No acute findings. Ordered By: AMRIT AGUILAR Interpreted By: Quintin Ascencio MD, 08/05/2025 2:44 PM Narrative 08/05/2025 2:46 PM CDT [place] [id number] Examination: Chest x-ray 1 view Exam date/time: 08/05/2025 2:34 PM Reason For Exam: Shortness of breath. Comparison: 08/02/2025 Findings: Cardiomediastinal silhouette and pulmonary vasculature are within normal limits. No acute airspace consolidation, pleural effusion or pneumothorax. Lungs are somewhat underinflated. External artifacts are noted. Procedure Note Quintin Ascencio MD - 08/05/2025 [place] [id number] Examination: Chest x-ray 1 view Exam date/time: [...] 5:03 PM Narrative 08/02/2025 5:04 PM CDT [place] [id number] Examination: XR CHEST PA+LAT Exam time: 08/02/2025 4:34 PM Clinical history: Short of breath. Comparison: Prior radiographs June 2025. Technique: One view chest. Findings: Cardiac size is normal. Trachea is in the midline. In the lung parenchyma no acute infiltrates. There is no pneumothorax or effusion. Osseous structures are intact. Procedure Note Boby Falk MD - 08/02/2025 [place] [id number] Examination: XR CHEST PA+LAT Exam time: 08/02/2025 [...] Falk MD, 08/02/2025 5:03 PM Alirio Jeffers [facility] Final Result * CK (CPK) (07/31/2025 2:35 PM CDT) CPK 79 21 - 215 U/L 07/31/2025 4:09 PM CDT [facility] 07/31/2025 2:35 PM CDT Marci RODRIGUEZ LABORATORY Final Result [facility] [address] [place] [address], [place] [phone] * THYROXINE, FREE (FT4) (07/29/2025 10:12 PM CDT) FREE T4 0.90 0.76 - 1.46 NG/DL 07/29/2025 10:52 PM CDT [facility] 07/29/2025 10:1 2 PM CDT Silvia RODRIGUEZ LABORAT[facility] Final Result Performing Organization Address [facility]/ZIP Co de Phone Number [facility] [address] [place] [address], [place] [phone] * CT HEAD WO CON (07/28/2025 1:44 [...] 1:44 PM Narrative 07/28/2025 1:50 PM CDT [address] [address] Exam: CT head without contrast Exam Date/Time: [...] Procedure Note Izabella Almendarez MD - 07/28/2025 [facility] [address] [place], [place] [address] Exam: CT head without contrast Exam Date/Time: [...] By: Izabella Almendarez MD, 07/28/2025 1:44 PM Son Edmonds NP CT Final Result * POCT urine (07/28/2025 11:40 AM CDT) URINE HCG TEST NEGATIVE Internal Control: VALID 07/28/2025 11:4 0 AM CDT us Son Edmonds NP POINT OF CARE TEST ORDERABLES Final Result * D-DIMER, QUANTITATIVE (07/18/2025 1:24 AM CDT) D-DIMER 268 0 - 500 ng{FEU}/mL 07/18/2025 1:44 AM CDT [facility] Comment: D-Dimer values less than [...] false negative findings. 07/18/2025 1:24 AM CDT us Fredo Sy MD,PHD LABORATORY Final Resu lt [facility] [address] [place] [address], [place] [phone] from Last 3 Months Insurance [facility] Care Teams Mother Superior Relationship Specialty Start Date End Date Mike Todd MD [address] [place] [phone] PCP - General 05/31/25
[2025-09-26 12:26] VITALS: BP 131/94; PULSE 85; RESP 16; TEMP 36.4; O2SAT 100
--- NOTE | 2025-09-26 14:19 | PC.NURSE ---
Pt left before seeing provider
--- OUTSIDE RECORDS SUMMARY | 2025-09-26 14:53 | XMS_ITS | Clinical Summary ---
Author Organization [facility] Address [facility] [place] [address] Care Team Providers Care A/C Technician Name Role Phone Mike Todd MD Primary Care Provider [phone] Allergies Active Allergy Reactions Criticality Noted Date [...] - 08/05/2025 5:[address] [facility] [place] [address] Day Mendez MD Tingling Discharge Disposition: Home or Self Care (Routine Discharge) 08/05/2025 Travel 08/02/2025 4:52 PM CDT - 08/02/2025 7:[address] [facility] [place] [address] Lilly Albrecht MD Shortness Of Breath Discharge Disposition: Left Against Medical Advice 08/02/2025 Travel 07/31/2025 2:15 PM CDT - 07/31/2025 9:[address] [facility] [place] [address] Franklin Vargas MD Medical Problem Discharge Disposition: Home or Self Care (Routine Discharge) 07/31/2025 Travel 07/29/2025 9:40 PM CDT - 07/29/2025 11:[address] [facility] [place] [address] Maureen Benavides MD Medical Problem Discharge Disposition: Home or Self Care (Routine Discharge) 07/29/2025 Travel 07/28/2025 11:38 AM CDT - 07/28/2025 2:[address] [facility] [place] [address] Marcus Akhtar MD Dizziness; Blurred Vision; Headache; Ear Problem Discharge Disposition: Home or Self Care (Routine Discharge) 07/28/2025 Travel 07/18/2025 1:02 AM CDT - 07/18/2025 4:[address] 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 [address] Test Date: 2025-08-05 Pat Name: ANGELINA GREGORY Department: 41 Room: EXAM15 Gender: Female Body Fitter: [id number] : 2000 Requested By: AMRIT AGUILAR Order Number: [id number] Reading : Saji Rdz Measurements Intervals [place] Rate: 84 P: 57 FL: 152 QRS: 63 QRSD: 90 T: 11 QT: 345 QTc: 409 Interpretive Statements SINUS RHYTHM NONSPECIFIC T-WAVE ABNORMALITY Compared to ECG 08/02/2025 17:27:04 Sinus arrhythmia no longer present Possible ischemia no longer present T-wave abnormality still present us Amrit Aguilar PA-C ECG ORDERABLES Final Resul t [facility] * TSH W/REFLEX (08/05/2025 4:03 PM CDT) Only the most recent of4 resultswithin the time period is included. TSH 1.820 0.358 - 3.74 uIU/ML 08/05/2025 5:03 PM CDT [facility] Comment: HIGH DOSES OF BIOTIN MAY INTERFERE WITH THIS TEST RESULT. CORRELATION TO CLINICAL HISTORY AND PRESENTATION RECOMMENDED. FREE T4 NOT INDICATED 08/05/2025 4:03 PM CDT us Amrit Aguilar PA-C LABORATORY Final Resul t Performing Organization Address City/[facility] Co de Phone Number [facility] [address] [place] [address], [place] [phone] * PARTIAL THROMBOPLASTIN TIME,PTT (08/05/2025 4:03 PM CDT) PTT 29.5 25.1 - 36.5 SEC 08/05/2025 4:41 PM CDT [facility] 08/05/2025 4:03 PM CDT Amrit Aguilar PA-C LABORATORY Final Resul t Performing Organization Address [facility] Co de Phone Number [facility] [address] [place] [address], [place] [phone] * PROTIME/INR, VENOUS (08/05/2025 4:03 PM CDT) PROTIME 12.1 10.2 - 12.9 SEC 08/05/2025 4:41 PM CDT [facility] INR 1.1 08/05/2025 4:41 PM CDT [facility] Comment: Recommended INR Therapeutic Goals: 2.0-3.0 Routine Therapy 2.5-3.5 Mechanical Prosthetic Valves (High Risk) 08/05/2025 4:03 PM CDT us Amrit Aguilar PA-C LABORATORY Final Resul t [facility] [address] [place] [address], [place] [phone] * (ABNORMAL) COMPREHENSIVE METABOLIC PANEL (08/05/2025 4:03 PM CDT) Only the most recent of6 resultswithin the time period is included. [facility] GLUCOSE 95 70 - 99 MG/DL 08/05/2025 5:03 PM CDT [facility] BUN 8 7 - 18 MG/DL 08/05/2025 5:03 PM CDT [facility] CREATININE S/P/B 0.78 0.55 - 1.02 MG/DL 08/05/2025 5:03 PM CDT [facility] SODIUM S/P/B 139 136 - 145 MMOL/L 08/05/2025 5:03 PM CDT [facility] POTASSIUM S/P/B 3.1(L) 3.5 - 5.1 MMOL/L 08/05/2025 5:03 PM CDT [facility] CHLORIDE S/P/B 111 97 - 115 MMOL/L 08/05/2025 5:03 PM CDT [facility] CO2 19.9(L) 21 - 32 MMOL/L 08/05/2025 5:03 PM CDT [facility] CALCIUM S/P/B 9.2 8.5 - 10.1 MG/DL 08/05/2025 5:03 PM CDT [facility] BILIRUBIN TOTAL S/P/B 0.4 0.2 - 1.2 MG/DL 08/05/2025 5:03 PM CDT [facility] Comment: THIS ASSAY IS NOT RECOMMENDED FOR PATIENTS UNDERGOING TREATMENT WITH ELTROMBOPAG DUE TO THE POTENTIAL FOR FALSELY ELEVATED RESULTS. TOTAL PROTEIN S/P/B 8.1 6.4 - 8.2 G/DL 08/05/2025 5:03 PM CDT [facility] ALBUMIN S/P/B 3.6 3.4 - 5.0 G/DL 08/05/2025 5:03 PM CDT [facility] AST 17 15 - 37 U/L 08/05/2025 5:03 PM CDT [facility] ALT 20 14 - 55 U/L 08/05/2025 5:03 PM CDT [facility] ALKALINE PHOSPHATASE S/P/B 69 50 - 136 U/L 08/05/2025 5:03 PM CDT [facility] ANION GAP 8.1 2 - 10 MMOL/L 08/05/2025 5:03 PM CDT [facility] BUN CREATININE RATIO 10.2 6 - 26 08/05/2025 5:03 PM CDT [facility] A/G RATIO 0.8(L) 1.0 - 2.0 RATIO 08/05/2025 5:03 PM T [facility] GFR ESTIMATE >90 >90 ML/MIN/1.7 3 M2 08/05/2025 5:03 PM CDT [facility] Comment: NOTE: eGFR is not [...] Amrit Aguilar PA-C LABORATORY Final Resul t [facility] [address] [place] [address], [place] [phone] * (ABNORMAL) CBC W/DIFF AUTOMATED (08/05/2025 4:03 PM CDT) Only the most recent of6 resultswithin the time period is included. [facility] WBC 7.02 4.5 - 11.0 x10'3/uL 08/05/2025 4:20 PM CDT [facility] RBC 4.13(L) 4.20 - 5.40 x10'6/uL 08/05/2025 4:20 PM CDT [facility] HGB 12.5 12.0 - 16.0 G/DL 08/05/2025 4:20 PM CDT [facility] HCT 37.8(L) 38.0 - 48.0 % 08/05/2025 4:20 PM CDT [facility] MCV 91.5 81.0 - 99.0 FL 08/05/2025 4:20 PM CDT [facility] MCH 30.3 27.0 - 31.0 PG 08/05/2025 4:20 PM CDT [facility] MCHC 33.1 32.0 - 36.0 G/DL 08/05/2025 4:20 PM CDT [facility] RDW 15.7(H) 11.5 - 14.5 % 08/05/2025 4:20 PM CDT [facility] PLT 317 130 - 400 x10'3/uL 08/05/2025 4:20 PM CDT [facility] MPV 9.4 9.3 - 12.2 FL 08/05/2025 4:20 PM CDT [facility] DIFFERENTIAL TYPE AUTOMATED DIFFERENTIAL 08/05/2025 4:20 PM CDT [facility] NEUTROPHILS % 73.4 % 08/05/2025 4:20 PM CDT [facility] LYMPHOCYTES % 21.1 % 08/05/2025 4:20 PM CDT [facility] MONOCYTES % 3.8 % 08/05/2025 4:20 PM CDT [facility] EOSINOPHILS 0.6 % 08/05/2025 4:20 PM CDT [facility] BASOPHILS 0.7 % 08/05/2025 4:20 PM CDT [facility] IMMATURE GRANS % 0.4 % 08/05/20 4:20 PM CDT [facility] ABS. NEUTROPHILS 5.15 1.80 - 7.70 x10'3/uL 08/05/2025 4:20 PM CDT [facility] ABS. LYMPHOCYTES 1.48 1.00 - 4.80 x10'3/uL 08/05/2025 4:20 PM CDT [facility] ABS. MONOCYTES 0.27 0.24 - 0.86 x10'3/uL 08/05/2025 4:20 PM CDT [facility] ABS. EOSINOPHILS 0.04 0.04 - 0.36 x10'3/uL 08/05/2025 4:20 PM CDT [facility] ABS. BASOPHILS 0.05 0.01 - 0.08 x10'3/uL 08/05/2025 4:20 PM CDT [facility] ABS. IMMATURE GRANULOCYTES 0.03 0.00 - 0.49 x10'3/uL 08/05/2025 4:20 PM CDT [facility] 08/05/2025 4:03 PM CDT us Amrit Aguilar PA-C LABORATORY Final Resul t [facility] [address] [place] [address], * TROPONIN, QUANT (08/05/2025 4:03 PM CDT) Only the most recent of4 resultswithin the time period is included. TROPONIN I HIGH SENSITIVITY 3 <54 ng/L 08/05/2025 5:03 PM CDT [facility] Comment: HIGH DOSES OF BIOTIN, TROPONIN-SPECIFIC AUTOANTIBODIES, AND ANTIBODY THERAPY CONTAINING HAMA MAY INTERFERE WITH THIS TEST RESULT. CORRELATION TO CLINICAL HISTORY AND PRESENTATION RECOMMENDED. 08/05/2025 4:03 PM CDT us Amrit Aguilar PA-C LABORATORY Final Resul t Performing Organization Address City/[facility]/ZIP Co de Phone Number [facility] [address] [place] [address], * MAGNESIUM (08/05/2025 4:03 PM CDT) Only the most recent of5 resultswithin the time period is included. Pathologist [facility] MAGNESIUM 2.0 1.8 - 2.4 MG/DL 08/05/2025 5:03 PM CDT [facility] 08/05/2025 4:03 PM CDT us Amrit Aguilar PA-C LABORATORY Final Resul t [facility] [address] [place] [address], [place] [phone] * XR CHEST PORTABLE (08/05/2025 2:43 PM CDT) Only the most recent of2 resultswithin the time period is included. Anatomical Region Laterality Modality Chest Radiographic Dayanna ging 08/05/2025 2:44 PM CDT Impressions 08/05/2025 2:46 PM CDT =====IMPRESSION:===== No acute findings. Ordered By: AMRIT AGUILAR Interpreted By: Quintin Ascencio MD, 08/05/2025 2:44 PM Narrative 08/05/2025 2:46 PM CDT [place] [address] Examination: Chest x-ray 1 view Exam date/time: 08/05/2025 2:34 PM Reason For Exam: Shortness of breath. Comparison: 08/02/2025 Findings: Cardiomediastinal silhouette and pulmonary vasculature are within normal limits. No acute airspace consolidation, pleural effusion or pneumothorax. Lungs are somewhat underinflated. External artifacts are noted. Procedure Note Quintin Ascencio MD - 08/05/2025 [place] [address] Examination: Chest x-ray 1 view Exam date/time: [...] 5:03 PM Narrative 08/02/2025 5:04 PM CDT [place] [address] Examination: XR CHEST PA+LAT Exam time: 08/02/2025 4:34 PM Clinical history: Short of breath. Comparison: Prior radiographs June 2025. Technique: One view chest. Findings: Cardiac size is normal. Trachea is in the midline. In the lung parenchyma no acute infiltrates. There is no pneumothorax or effusion. Osseous structures are intact. Procedure Note Boby Falk MD - 08/02/2025 [place] [address] Examination: XR CHEST PA+LAT Exam time: 08/02/2025 [...] Falk MD, 08/02/2025 5:03 PM Alirio Jeffers RADIAGRAPH OPERATOR GENERAL IMAGING Final Result * CK (CPK) (07/31/2025 2:35 PM CDT) CPK 79 21 - 215 U/L 07/31/2025 4:09 PM CDT [facility] 07/31/2025 2:35 PM CDT Marci RODRIGUEZ LABORATORY Final Result [facility] [address] [place] [address], [place] [phone] * THYROXINE, FREE (FT4) (07/29/2025 10:12 PM CDT) FREE T4 0.90 0.76 - 1.46 NG/DL 07/29/2025 10:52 PM CDT [facility] 07/29/2025 10:1 2 PM CDT Silvia RODRIGUEZ LABORATORY Final Result Performing Organization Address [facility]/ZIP Co de Phone Number [facility] [address] [place] [address], [place] [phone] * CT HEAD WO CON (07/28/2025 1:44 [...] 1:44 PM Narrative 07/28/2025 1:50 PM CDT [address] [address] Exam: CT head without contrast Exam Date/Time: [...] Procedure Note Izabella Almendarez MD - 07/28/2025 [facility] [address] [place], [place] [address] Exam: CT head without contrast Exam Date/Time: [...] - 500 ng{FEU}/mL 07/18/2025 1:44 AM CDT [facility] Comment: D-Dimer values less than or [...] Fredo Sy MD,PHD LABORATORY Final Resu lt [facility] [address] [place] [address], [place] [phone] from Last 3 Months Insurance [facility] Care Teams A/C Technician Relationship Specialty Start Date End Date Mike Todd MD [address] [place] [phone] PCP - General 05/31/25
== END 2025-09-26 14:19 | disposition left against medical advice (07) ==
DX: D64.9 Anemia, unspecified (principal)
CPT/HCPCS: 99199

== ENCOUNTER 2025-09-30 13:16 | Emergency (ER) | payer BC, SELFPAY ==
--- NOTE | ~2025-09-30 | CT_ITS ---
CTA chest PE protocol HISTORY:SOB; dimer elevated . COMPARISON: None. TECHNIQUE: Following the noncontrasted bridge toll collector, axial images of the thorax were obtained following infusion of 100 cc of Isovue 370. Post-processing on an independent workstation was performed to reconstruct MIP images for evaluation of the thoracic vasculature. FINDINGS: There is no pulmonary embolism, aortic dissection, thoracic aneurysm or pericardial fluid. The lung parenchyma is clear. No pleural effusion or pneumothorax is noted. There is no axillary, mediastinal or hilar adenopathy. Limited evaluation of the upper abdomen demonstrates no gross abnormalities. Review of bone windows demonstrates no osteoblastic or lytic lesions. IMPRESSION: There is no pulmonary embolism, aortic dissection, pericardial fluid or thoracic aneurysm. No acute lung findings. All CT scans at this facility are performed using low dose modulation techniques as appropriate to perform exam including the following: automated exposure control; use of iterative reconstruction technique; adjustment of the mA and/or kV according to patient size (this includes techniques or standardized protocols for targeted exams where dose is matched to indication/reason for exam). Reviewed, dictated and finalized at location S. OGRAPHIC PRESS FEEDER IMPRESSION: There is no pulmonary embolism, aortic dissection, pericardial fluid or thoraci c aneurysm. No acute lung findings. All CT scans at this facility are performed using low dose modulation techniqu es as appropriate to perform exam including the following: automated exposure c ontrol; use of iterative reconstruction technique; adjustment of the mA and/or kV according to patient size (this includes techniques or standardized protocol s for targeted exams where dose is matched to indication/reason for exam).
--- NOTE | ~2025-09-30 | XR_ITS ---
EXAMINATION: XR chest 2V 09/30/2025 15:00 INDICATION: Shortness of breath and dizziness PROCEDURE: 2 view chest COMPARISON: No prior studies for comparison. FINDINGS: The lungs are clear. The cardiomediastinal silhouette is within normal limits. There are no pleural effusions. There is no pneumothorax suspected. IMPRESSION: 1: NO ACUTE CARDIOPULMONARY DISEASE. Reviewed, dictated and finalized at location O. NE MARKETING SPECIALIST
[2025-09-30 13:16] VITALS: BP 126/83; PULSE 85; RESP 16; TEMP 36.6; O2SAT 98
--- NOTE | 2025-09-30 13:38 | ECG_ITS ---
Test Date: 2025-09-30 15:17:50 Measurements Intervals [place] Rate: 80 P: 48 SD: 160 QRS: 58 QRSD: 89 T: 17 QT: 347 QTc: 401 Interpretive Statements SINUS RHYTHM MODERATE VOLTAGE CRITERIA FOR LVH, CONSIDER NORMAL VARIANT [MEETS CRITERIA IN ONE OF: R(aVL), S(V1), R(V5), R(V5/V6)+S(V1)] NONSPECIFIC T-WAVE ABNORMALITY ABNORMAL ECG Electronically Signed On 09-30-2025 17:21:42 SALES FLOOR MANAGER by Onur Albrecht M.D.
--- NOTE | 2025-09-30 13:53 | ED_ITS ---
HPI - SOB/Dyspnea General Chief Complaint: Shortness of Breath/Dyspnea <Linsey Grover PA-C - Last Filed: 09/30/25 18:33> Stated Complaint: DYSPNEA <Linsey Grover PA-C - Last Filed: 09/30/25 18:33> Time Seen by Provider: 09/30/25 13:53 <Linsey Grover PA-C - Last Filed: 09/30/25 18:33> Focused HPI: This is a 25 year old female that presents to the ER for shortness of breath. Reports she recently finished her menstrual cycle. Has felt fatigued. Wondering if her iron is low as she has history of anemia. Reports a cough. Denies fever. GENERAL: Well-appearing, well-nourished, and in no acute distress. HEAD: Normocephalic, atraumatic. CHEST: Clear to auscultation. ?No respiratory distress. HEART: Regular rate and rhythm.? NEURO: ?Alert and oriented x3. Patient screened in triage and initial orders placed.? ?Additional care and disposition to be based upon?diagnostic testing and treatment. <Linsey Grover PA-C - Last Filed: 09/30/25 18:33> History of Present Illness HPI Narrative: Agree with the above with the following additions/corrections: Has been short of breath for approximately 1 week. Nonsmoker. [place] lightheaded. Was given an albuterol inhaler for a diagnosis of bronchitis back in 2022 and she does occasionally use it p.r.n. since. Denies any sick contacts. Lives alone. Not on anticoagulation. She had required a blood transfusion for anemia back in 2020. This was attributed possibly 2 to her menstrual cycle. Ever since she has taken ferrous sulfate with vitamin-C. She was concerned given that she been fatigued that her symptoms may be due to anemia. She has had a cough but no fevers. She denies any hemoptysis although states that she did have some epistaxis and had a metallic taste in her mouth that have/throat which she fell could be due to blood/bleeding. She states she has had hypoglycemic episodes and has been eating fruits but denies any history of diabetes mellitus. No edema. No recent surgery or trauma in the past 4 weeks, nothing that required anesthesia. No history of PE or DVT. Not on hormones including control. <Evelyn Valdivia MD - Last Filed: 09/30/25 19:34> Related Data Allergies/Adverse Reactions: Allergies Allergy/AdvReac Type Severity Reaction Status Date / Time metoclopramide AdvReac Anxiety Verified 09/30/25 15:18 <Linsey Grover PA-C - Last Filed: 09/30/25 18:33> PMFSH Past Medical History Medical History: Medical History History of blood transfusion 2020, for anemia Bronchitis 2022 <Linsey Grover PA-C - Last Filed: 09/30/25 18:33> Social History Social History: Social History Living arrangements: alone <Linsey Grover PA-C - Last Filed: 09/30/25 18:33> Exam 2 Narrative: GENERAL: Well-appearing, well-nourished, and in no acute distress. HEAD: Normocephalic, atraumatic. EYES: Non injected, non icteric ENT: Nares clear, no rhinorrhea or epistaxis. Gross auditory acuity intact. NECK: Supple. No meningismus. CHEST: Speaking in full sentences. No respiratory distress. Lungs clear to auscultation bilaterally without rhonchi, crackles, wheezes, or areas of focal consolidation. HEART: Regular rate and rhythm. . ABDOMEN: Obese but Soft, nondistended. EXTREMITIES: Normal range of motion. No lower extremity edema. SKIN: Warm, dry, no rash. NEURO: No focal deficits. Alert and oriented. Answering questions. Following commands. Normal speech without aphasia or dysarthria. PSYCH: Normal mood and affect. <Evelyn Valdivia MD - Last Filed: 09/30/25 19:34> Course Vital Signs Vital signs: Vital Signs Temperature 97.9 F 09/30/25 13:16 Pulse Rate 85 09/30/25 13:16 Respiratory Rate 16 09/30/25 13:16 Blood Pressure 126/83 09/30/25 13:16 Pulse Oximetry 98 09/30/25 13:16 Temperature 97.9 F 09/30/25 13:16 Pulse Rate 75 11/05/25 18:27 Respiratory Rate 18 09/30/25 18:27 Blood Pressure 132/79 09/30/25 18:27 Pulse Oximetry 99 09/30/25 18:27 Oxygen Delivery Room Air 09/30/25 15:28 <Linsey Grover PA-C - Last Filed: 09/30/25 18:33> Vital Signs Temperature 97.9 F 09/30/25 13:16 Pulse Rate 85 09/30/25 13:16 Respiratory Rate 16 09/30/25 13:16 Blood Pressure 126/83 09/30/25 13:16 Pulse Oximetry 98 09/30/25 13:16 Temperature 97.9 F 09/30/25 13:16 Pulse Rate 75 09/30/25 18:27 Respiratory Rate 18 09/30/25 18:27 Blood Pressure 132/79 09/30/25 18:27 Pulse Oximetry 99 09/30/25 18:27 Oxygen Delivery Room Air 09/30/25 15:28 <Evelyn Valdivia MD - Last Filed: 09/30/25 19:34> MDM - SOB/Dyspnea MDM Narrative Medical decision making narrative: Patient presents with report of shortness of breath for past 1 week. She has had a cough but denies any fevers. She is concerned in may be due to her anemia as she has a history of this requiring blood transfusion approximately 4 years ago although she has been taking her ferrous sulfate with vitamin-C. History of 1 episode of bronchitis in 2022 but no other underlying respiratory issues. Nonsmoker. In the emergency department they are afebrile with vital signs within normal limits. PERC Rule Age greater than or equal to 50: 0 HR greater than or equal to 100:0 O2 sat room air <95%:0 Unilateral leg swelling: No Hemoptysis: Denies *but metallic/bloody taste in mouth - will obtain dimer given this. Recent surgery or trauma less than 4 wks ago requiring tx with general anesthesia: No Prior PE or DVT: No Hormone use (OCP, HRT or estrogenic hormone use in M/F patients): No Dimer mildly elevated. Will proceed with CT PE. Preg test negative. CT imaging negative. No role for steroids or antibiotics. Viral swab negative. Patient stable for discharge. She was given prescription for Tessalon Perles and an order had been placed for these to be given while in the emergency department however she did report to the nurse that she is unable to swallow pills. Guaifenesin was ordered. Advised follow-up with PCP. Is believed that patient had 1 given the fact that she mentioned her refill iron prescription however contact information is provided in case she does require 1. Work note given. Patient is observed ambulating out of the emergency department with a steady gait does not appear toxic or dyspneic on exertion. <Evelyn Valdivia MD - Last Filed: 09/30/25 19:34> Differential Diagnosis Differential diagnosis: Likely community acquired pneumonia, pulmonary embolism and other (Acute viral syndrome, bronchitis) <Evelyn Valdivia MD - Last Filed: 09/30/25 19:34> Lab Data Attestation: I reviewed the patient's lab results. <Evelyn Valdivia MD - Last Filed: 09/30/25 19:34> Lab results narrative: CBC with mild abnormalities on the differential but otherwise without leukocytosis or anemia or thrombocytopenia <Evelyn Valdivia MD - Last Filed: 09/30/25 19:34> Result diagrams: 09/30/25 15:22 09/30/25 15:22 <Linsey Grover PA-C - Last Filed: 09/30/25 18:33> Labs: Lab Results 09/30/25 09/30/25 09/30/25 Range/Units 15:17 15:18 15:22 WBC 5.7 (4.5-10.0) K/mm3 RBC 4.26 (4.2-5.4) M/mm3 Hgb 12.6 (12.0-15.0) g/dL Hct 39.8 (37.0-47.0) % MCV 93.4 (80-100) fl MCH 29.6 (26-34) pg MCHC 31.7 L (32-36) g/dl RDW 14.3 (11.5-14.5) % Plt Count 326 (150-375) k/mm3 MPV 9.3 (7.4-10.4) fl Immature Gran % (Auto) 0.2 (0-0.5) % Neut % (Auto) 47.2 (45.5-73.1) % Lymph % (Auto) 45.2 H (18.3-44.2) % [place] % (Auto) 4.6 (2.6-8.5) % Eos % (Auto) 1.9 (0-4.4) % Baso % (Auto) 0.9 (0.2-1.2) % Lymph # (Auto) 2.56 (0.9-3.2) K/mm3 [place] # (Auto) 0.3 (0.1-0.6) K/mm3 Eos # (Auto) 0.1 (0-0.3) K/mm3 Baso # (Auto) 0.1 (0.0-0.1) K/mm3 Abs Immat Gran (auto) 0.01 (0.00-0.031) K/mm3 Absolute Neuts (auto) 2.7 (1.3-6.7) K/mm3 Absolute Nucleated RBC 0.000 (0.0-0.012) K/mm3 Nucleated RBC % 0.0 (0.0-0.2) % D-Dimer 0.80 H (<0.48) ug/mL Sodium 139 (137-145) mmol/L Potassium 3.8 (3.4-5.0) mmol/L Chloride 105 (98-107) mmol/L Carbon Dioxide 26 (22-30) mmol/L Anion Gap 8 (4-12) mmol/L BUN 13 (7-17) mg/dL Creatinine 0.70 (0.7-1.0) mg/dL Estim Creat Clear Calc 123 ml/min Estimated GFR > 60 (59 - ) Glucose 106 (65-110) mg/dL Calcium 9.1 (8.4-10.2) mg/dL Total Bilirubin 0.4 (0.2-1.3) mg/dL AST 24 (14-36) U/L ALT 17 (6-35) U/L Alkaline Phosphatase 76 (38-126) U/L Total Protein 8.6 H (6.3-8.2) g/dL Albumin 4.5 (3.5-5.1) g/dL POC Urine HCG, Qual (Negative) Influenza A (RT-PCR) Negative (Negative) Influenza B (RT-PCR) Negative (Negative) RSV (RT-PCR) Negative (Negative) SARS-CoV-2 RNA (RT-PCR) Negative (Negative) Blood Type O Positive Antibody Screen Negative 09/30/25 Range/Units 16:26 WBC (4.5-10.0) K/mm3 RBC (4.2-5.4) M/mm3 Hgb (12.0-15.0) g/dL Hct (37.0-47.0) % MCV (80-100) fl MCH (26-34) pg MCHC (32-36) g/dl RDW (11.5-14.5) % Plt Count (150-375) k/mm3 MPV (7.4-10.4) fl Immature Gran % (Auto) (0-0.5) % Neut % (Auto) (45.5-73.1) % Lymph % (Auto) (18.3-44.2) % [place] % (Auto) (2.6-8.5) % Eos % (Auto) (0-4.4) % Baso % (Auto) (0.2-1.2) % Lymph # (Auto) (0.9-3.2) K/mm3 [place] # (Auto) (0.1-0.6) K/mm3 Eos # (Auto) (0-0.3) K/mm3 Baso # (Auto) (0.0-0.1) K/mm3 Abs Immat Gran (auto) (0.00-0.031) K/mm3 Absolute Neuts (auto) (1.3-6.7) K/mm3 Absolute Nucleated RBC (0.0-0.012) K/mm3 Nucleated RBC % (0.0-0.2) % D-Dimer (<0.48) ug/mL Sodium (137-145) mmol/L Potassium (3.4-5.0) mmol/L Chloride (98-107) mmol/L Carbon Dioxide (22-30) mmol/L Anion Gap (4-12) mmol/L BUN (7-17) mg/dL Creatinine (0.7-1.0) mg/dL Estim Creat Clear Calc ml/min Estimated GFR (59 - ) Glucose (65-110) mg/dL Calcium (8.4-10.2) mg/dL Total Bilirubin (0.2-1.3) mg/dL AST (14-36) U/L ALT (6-35) U/L Alkaline Phosphatase (38-126) U/L Total Protein (6.3-8.2) g/dL Albumin (3.5-5.1) g/dL POC Urine HCG, Qual Negative (Negative) Influenza A (RT-PCR) (Negative) Influenza B (RT-PCR) (Negative) RSV (RT-PCR) (Negative) SARS-CoV-2 RNA (RT-PCR) (Negative) Blood Type Antibody Screen <Linsey Grover PA-C - Last Filed: 09/30/25 18:33> Lab Results 09/30/25 09/30/25 09/30/25 Range/Units 15:17 15:18 15:22 WBC 5.7 (4.5-10.0) K/mm3 RBC 4.26 (4.2-5.4) M/mm3 Hgb 12.6 (12.0-15.0) g/dL Hct 39.8 (37.0-47.0) % MCV 93.4 (80-100) fl MCH 29.6 (26-34) pg MCHC 31.7 L (32-36) g/dl RDW 14.3 (11.5-14.5) % Plt Count 326 (150-375) k/mm3 MPV 9.3 (7.4-10.4) fl Immature Gran % (Auto) 0.2 (0-0.5) % Neut % (Auto) 47.2 (45.5-73.1) % Lymph % (Auto) 45.2 H (18.3-44.2) % [place] % (Auto) 4.6 (2.6-8.5) % Eos % (Auto) 1.9 (0-4.4) % Baso % (Auto) 0.9 (0.2-1.2) % Lymph # (Auto) 2.56 (0.9-3.2) K/mm3 [place] # (Auto) 0.3 (0.1-0.6) K/mm3 Eos # (Auto) 0.1 (0-0.3) K/mm3 Baso # (Auto) 0.1 (0.0-0.1) K/mm3 Abs Immat Gran (auto) 0.01 (0.00-0.031) K/mm3 Absolute Neuts (auto) 2.7 (1.3-6.7) K/mm3 Absolute Nucleated RBC 0.000 (0.0-0.012) K/mm3 Nucleated RBC % 0.0 (0.0-0.2) % D-Dimer 0.80 H (<0.48) ug/mL Sodium 139 (137-145) mmol/L Potassium 3.8 (3.4-5.0) mmol/L Chloride 105 (98-107) mmol/L Carbon Dioxide 26 (22-30) mmol/L Anion Gap 8 (4-12) mmol/L BUN 13 (7-17) mg/dL Creatinine 0.70 (0.7-1.0) mg/dL Estim Creat Clear Calc 123 ml/min Estimated GFR > 60 (59 - ) Glucose 106 (65-110) mg/dL Calcium 9.1 (8.4-10.2) mg/dL Total Bilirubin 0.4 (0.2-1.3) mg/dL AST 24 (14-36) U/L ALT 17 (6-35) U/L Alkaline Phosphatase 76 (38-126) U/L Total Protein 8.6 H (6.3-8.2) g/dL Albumin 4.5 (3.5-5.1) g/dL POC Urine HCG, Qual (Negative) Influenza A (RT-PCR) Negative (Negative) Influenza B (RT-PCR) Negative (Negative) RSV (RT-PCR) Negative (Negative) SARS-CoV-2 RNA (RT-PCR) Negative (Negative) Blood Type O Positive Antibody Screen Negative 09/30/25 Range/Units 16:26 WBC (4.5-10.0) K/mm3 RBC (4.2-5.4) M/mm3 Hgb (12.0-15.0) g/dL Hct (37.0-47.0) % MCV (80-100) fl MCH (26-34) pg MCHC (32-36) g/dl RDW (11.5-14.5) % Plt Count (150-375) k/mm3 MPV (7.4-10.4) fl Immature Gran % (Auto) (0-0.5) % Neut % (Auto) (45.5-73.1) % Lymph % (Auto) (18.3-44.2) % [place] % (Auto) (2.6-8.5) % Eos % (Auto) (0-4.4) % Baso % (Auto) (0.2-1.2) % Lymph # (Auto) (0.9-3.2) K/mm3 [place] # (Auto) (0.1-0.6) K/mm3 Eos # (Auto) (0-0.3) K/mm3 Baso # (Auto) (0.0-0.1) K/mm3 Abs Immat Gran (auto) (0.00-0.031) K/mm3 Absolute Neuts (auto) (1.3-6.7) K/mm3 Absolute Nucleated RBC (0.0-0.012) K/mm3 Nucleated RBC % (0.0-0.2) % D-Dimer (<0.48) ug/mL Sodium (137-145) mmol/L Potassium (3.4-5.0) mmol/L Chloride (98-107) mmol/L Carbon Dioxide (22-30) mmol/L Anion Gap (4-12) mmol/L BUN (7-17) mg/dL Creatinine (0.7-1.0) mg/dL Estim Creat Clear Calc ml/min Estimated GFR (59 - ) Glucose (65-110) mg/dL Calcium (8.4-10.2) mg/dL Total Bilirubin (0.2-1.3) mg/dL AST (14-36) U/L ALT (6-35) U/L Alkaline Phosphatase (38-126) U/L Total Protein (6.3-8.2) g/dL Albumin (3.5-5.1) g/dL POC Urine HCG, Qual Negative (Negative) Influenza A (RT-PCR) (Negative) Influenza B (RT-PCR) (Negative) RSV (RT-PCR) (Negative) SARS-CoV-2 RNA (RT-PCR) (Negative) Blood Type Antibody Screen <Evelyn Valdivia MD - Last Filed: 09/30/25 19:34> Imaging Data Radiologist's impression: Impressions Chest X-Ray 09/30/25 15:03 IMPRESSION: 1: NO ACUTE CARDIOPULMONARY DISEASE. Chest CTA 09/30/25 17:31 IMPRESSION: There is no pulmonary embolism, aortic dissection, pericardial fluid or thoracic aneurysm. No acute lung findings. All CT scans at this facility are performed using low dose modulation techniques as appropriate to perform exam including the following: automated exposure control; use of iterative reconstruction technique; adjustment of the mA and/or kV according to patient size (this includes techniques or standardized protocols for targeted exams where dose is matched to indication/reason for exam). <Evelyn Valdivia MD - Last Filed: 09/30/25 19:34> ECG Data EKG #1: Attestation: I personally reviewed and interpreted this ECG as follows: < Evelyn Valdivia MD - Last Filed: 09/30/25 19:34> ECG completion date: 09/30/25 <Evelyn Valdivia MD - Last Filed: 09/30/25 19:34> ECG completion time: 15:17 <Evelyn Valdivia MD - Last Filed: 09/30/25 19:34> Interpretation: Normal sinus rhythm at a rate of 80 beats per minute. MT interval 160. QRS 89. QT/QTC 347/401. Good R-wave progression across the precordial leads. T-wave inversion in 3 but upright in contiguous inferior leads. Also T- wave inversion in V3, possibly due to lead placement. <Evelyn Valdivia MD - Last Filed: 09/30/25 19:34> Discharge Plan Discharge Clinical Impression: Bronchitis, Shortness of breath <Linsey Grover PA-C - Last Filed: 09/30/25 18:33> Patient Disposition: Home <Linsey Grover PA-C - Last Filed: 09/30/25 18:33> Condition: Stable <Linsey Grover PA-C - Last Filed: 09/30/25 18:33> Instructions: Antibiotic Form, Acute Bronchitis (ED), Shortness of Breath (ED) <Linsey Grover PA-C - Last Filed: 09/30/25 18:33> Additional Instructions: No clear cause of your symptoms. No evidence of pneumonia so we call this bronchitis. The tessalon perles may help. No blood clot in your lungs. You are not anemic but keep taking your iron with vitamin C as prescribed. FYI: It is just as efficacious to take this every other day with fewer GI side effects. Follow up with primary care physician; if you do not have one, the name of a doctor is listed below. Return to the ED with new/worsening symptoms. <Linsey Grover PA-C - Last Filed: 09/30/25 18:33> Patient Language: German <Linsey Grover PA-C - Last Filed: 09/30/25 18:33> Prescriptions: New benzonatate 100 mg capsule 100 mg PO BID PRN (Reason: cough) Qty: 20 0RF <Linsey Grover PA-C - Last Filed: 09/30/25 18:33> Follow-up/Referrals: Maya Sherwood DO [Physician, Family Practice] PHYSICIAN NOT ON STAFF,NONSTAFF [Primary Care Provider] <Linsey Grover PA-C - Last Filed: 09/30/25 18:33> Stand Alone Forms: Work/School Release IP <Linsey Grover PA-C - Last Filed: 09/30/25 18:33> Time of Disposition: 17:44 <Linsey Grover PA-C - Last Filed: 09/30/25 18:33> 17:44 <Evelyn Valdivia MD - Last Filed: 09/30/25 19:34>
[2025-09-30 15:10] VITALS: PULSE 89; RESP 16; O2SAT 100
[2025-09-30 15:32] LABS: Hematocrit 39.8 % (37.0-47.0); Hemoglobin 12.6 g/dL (12.0-15.0); Immature Granulocyte Percent A 0.2 % (0-0.5); Lymphocytes Absolute Auto 2.56 K/mm3 (0.9-3.2); Mean Corpuscular HGB Conc 31.7 g/dl (32-36); Mean Corpuscular Hemoglobin 29.6 pg (26-34); Mean Corpuscular Volume 93.4 fl (80-100); Nucleated Red Blood Cells Absolute Auto 0.000 K/mm3 (0.0-0.012); Nucleated Red Blood Cells Perc 0.0 % (0.0-0.2); Platelet Count Result 326 k/mm3 (150-375); Red Blood Count 4.26 M/mm3 (4.2-5.4); White Blood Count 5.7 K/mm3 (4.5-10.0)
[2025-09-30 15:44] LABS: Alanine Aminotransferase 17 U/L (6-35); Albumin Level 4.5 g/dL (3.5-5.1); Alkaline Phosphatase 76 U/L (38-126); Anion Gap 8 mmol/L (4-12); Aspartate Amino Transferase 24 U/L (14-36); Bilirubin,Total 0.4 mg/dL (0.2-1.3); Blood Urea Nitrogen 13 mg/dL (7-17); Calcium 9.1 mg/dL (8.4-10.2); Carbon Dioxide 26 mmol/L (22-30); Chloride 105 mmol/L (98-107); Estimated CRCL calculation 123 ml/min; Estimated Glomerular Filt Rate > 60; Glucose 106 mg/dL (65-110); Potassium 3.8 mmol/L (3.4-5.0); Sodium 139 mmol/L (137-145); Total Protein 8.6 g/dL (6.3-8.2)
[2025-09-30 16:12] LABS: Influenza A QL RT-PCR Negative (Negative); Influenza B QL RT-PCR Negative (Negative); RSV RNA, RT-PCR Negative (Negative); SARS-CoV-2 RNA PCR Negative (Negative)
[2025-09-30 16:28] LABS: BEDSIDEPREGUCG Negative (Negative)
[2025-09-30 17:16] VITALS: BP 153/96; PULSE 82; RESP 19; O2SAT 100
[2025-09-30 18:27] VITALS: BP 132/79; PULSE 75; RESP 18; O2SAT 99
--- OUTSIDE RECORDS SUMMARY | 2025-10-01 15:05 | XMS_ITS | Clinical Summary ---
Author Organization [facility] [employer] Address [address] [place] [address] Care Team Providers Care Business Administration Instructor Name Role Phone Jakerosalvaus Mike Primary Care Provider [phone] Source Comments [facility],non-owned Affiliates and Associated Physician Practices is amultiple site organization consisting of ambulatory clinics and hospital sitesin [place], [place], [place] and [place]. This disclosure is being madepursuant to the Care Everywhere program and may not contain all information available regarding this patient. Last updated 18.[facility] [employer] Allergies Active Allergy Reactions Criticality Noted Date Comments Metoclopramide Psychiatric,Other Medium 07/31/2025 Medications * Be aware that medications may not be up to date on this document. Alwaysverify current medications with the patient. zolpidem CR (Ambien Cr) 6.25 MG tablet Take 1 (one) tablet by mouth nightly as needed for Insomnia Active LORazepam (Ativan) 0.5 MG tablet Take 1 (one) tablet by mouth every 8 hours as needed for Anxiety Active meclizine (Antivert) 25 MG tablet Take 1 (one) tablet by mouth 3 times daily as needed for Dizziness Active hydrOXYzine HCl (Atarax) 25 MG tablet Take 1 (one) tablet by mouth 4 times daily as needed for Itching Active albuterol HFA (Proventil; Ventolin; Proair) 108 (90 Base) MCG/ACT inhaler Inhale 2 (two) puffs by mouth every 6 hours as needed Active topiramate (Topamax) 25 MG tablet Take 1 (one) tablet by mouth as directed Week 1: 25 mg at bedtime. Week 2: 25 mg twice a day. Week 3: 25 mg AM, 50 mg PM. Week 4: 50 mg twice a day. 120 tablet 3 5 Active SUMAtriptan (Imitrex) 50 MG tablet 1 tablet at the onset of migraine; may repeat after 2 hours once in a 24 hour period if needed 9 tablet Active prochlorperazin e (Compazine) 10 MG tablet Take 1 (one) tablet by mouth every 8 hours as needed for Nausea/Vomitin g 25 tablet Active Encounters Date Type Department Care Team Description 08/11/2025 8:40 AM CDT Office Visit [facility] [address] [place] [address] Steven Hope MD Dizziness and giddiness (Primary Dx); Cerebral cysts 07/23/2025 Transcribe Orders [facility] [address] [place] [address] SolerJane Dizziness and giddiness ; Cerebral cysts from Last 3 Months Social History Tobacco Use Types Packs/Day Years [...] Mass Index 39.48 08/11/2025 8:39 AM CDT Plan of Treatment Upcoming Encounters Date Type Department Care Team (Late st Contact Info) Description 11/16/2025 10:20 AM [place] Office Visit [facility] [address] [place] [address] Steven Hope MD [address] [place] [address] Health Maintenance Due Date Last Done Comments HIV SCREENING 2014 HPV VACCINE (1 - 3-dose series) 2014 HEPATITIS C SCREENING 07/14/2017 DTAP/TDAP/TD VACCINES (1 - Tdap) 2018 HEPATITIS B VACCINE (1 of 3 - 19+ 3-dose series) 2018 PAP SMEAR 2020 DEPRESSION SCREENING 11/26/2024 COVID-19 VACCINE (1 - 2023-2 5 season) 2025 INFLUENZA VACCINE (#1) 2025 8, 08/29/2017 ZOSTER VACCINE (1 of 2) 2049 HIB VACCINE Aged Out No longer eligi ble based on patient's age to complete this topic MENINGOCOCCAL (Group B) VACCINE SHARED DECISION-MAKING Aged Out No longer eligible based on patient's age to complete this topic MENINGOCOCCAL GROUPS A/C/Y/W VACCINE Aged Out No longer eligible b ased on patient's age to complete this topic PNEUMOCOCCAL VACCINE Aged Out No long er eligible based on patient's age to complete this topic Insurance ANTH Care Teams Business Administration Instructor Relationship Specialty Start Date End Date Mike Todd [address] [place] [phone] PCP - General 07/22/25
--- OUTSIDE RECORDS SUMMARY | 2025-10-01 15:05 | XMS_ITS | Data Portability ---
Author Organization [facility] Address [address] [place] [address] Care Team Providers Care Filer Metal Patterns Name Role Phone JUNIOR FERGUSON Primary Care Provider Assessment No assessment recorded. Plan of Treatment Reminders Order Date Submit Date Provider Last Modified By Organization Details Last Modified Time Details Appointments Virtual Visit 20 2024 07:20A M [facility] Ricardo Ferguson MD Not available Not available Not available Lab iron + TIBC + ferritin, serum 2024 025 [facility], [address], [place], [address], 12/12/2024 10:30:44 HIV 1+2 Ab + HIV1 p24 Ag, quantitat son immunoass ay, serum 2024 025 [facility], [address], [place], [address], 12/12/2024 10:30:44 RPR (rapid plasma reagin), serum 2024 025 [facility], [address], [place], [address], 12/12/2024 10:30:44 CT + NG RNA, PCR, unspecifi ed specimen 2024 025 [facility], [address] , [place], [address], 12/12/2024 10:30:44 beta-HCG, quantitat son, serum or plasma 2024 025 [facility], [address], [place], [address], 12/12/2024 10:30:45 CBC w/ auto diff [address] [facility], [address], [place], [address], 12/12/2024 10:30:45 CMP, serum or plasma [address] [facility], [address], [place], [address], 12/12/2024 10:30:45 culture, urine [address] [facility], [address], [place], [address], 06/25/2024 10:08:14 CT + NG RNA, PCR, unspecifi ed specimen 2023 024 [facility], [address], [address], [place], [address], 06/23/2024 17:16:29 RPR (rapid plasma reagin), serum [address] [facility], [address], [place], [address], 06/25/2024 10:08:14 beta-HCG, qualitati ve, serum or plasma 2023 024 [facility], [address], [address], [place], [address], 06/25/2024 10:08:14 CBC w/ diff 2022 023 [facility], [address], [place], [address], 04/27/2023 10:36:50 CMP, serum or plasma 2022 023 [facility], [address] [facility], [address], [place], [address], 04/27/2023 10:36:51 TSH + free T4, serum 2022 023 [email or web address], [address], [address], [place], [address], 04/27/2023 10:36:51 Referral None recorded. Procedures None recorded. Surgeries None recorded. Imaging None recorded. Medication Orders ferrous sulfate 325 mg (65 mg iron) tablet 2024 025 [facility] [address], [address] [facility], [place], [address], 12/05/2024 15:05:04 zolpidem 10 mg tablet [email or web address], [address] , [place], [address], 03/04/2025 16:34:19 Patient TargetsNo targets recorded. Patient Instructions Encounter Date Encounter Id Patient Instructions Last Modified By Organization Details Last Modified Time 06/18/2024 [id number] eating healthy foods: care instructions [email or web address] Not available 06/18/2024 10:55:15 12/05/2024 [id number] eating healthy foods: care instructions [email or web address] Not available 12/05/2024 15:04:57 06/24/2025 [id number] eating healthy foods: care instructions [facility] Not available 06/24/2025 16:03:42 Reason for Referral None Reported. Results Created Date Observation Date Name Description Value Unit Range Abnormal Flag Note LastModifiedBy Organization Detail LastModifiedTime 07/07/2006/29/2025 MRI, brain , w/wo contr ast No observ ation record ed. [email or web address] [facility] [address], [place], [address], 07/08/2025 13:22:51 Result Notes Documentation Provider Name and Address Organization Details Recorded Time Hcg, Qualitative, Serum : This document (1 of 1) was received from [email or web address] on 02/04/2025 through Direct Message along with the following message body content: You have received a 3 page fax at 02/04/2025 11:09:17 PM. * The Caller-ID for this fax is [phone]. If you have any questions regarding this message or your service contact Corporate Support: [place] Email: [email or web address] Phone: or Email: [facility]@[email or web address] Phones: [phone] Thank you for using the [employer] service! Not Available [facility] 02/06/2025 02:30:45 Mri, Brain, W/wo Contrast : This document (1 of 1) was received from [email or web address] on 07/07/2025 through Direct Message along with the following message body content: You have received a 2 page fax at 07/07/2025 6:33:25 PM. * The Caller-ID for this fax is [phone]. If you have any questions regarding this message or your service contact Corporate Support: [place] Email: [email or web address] Phone: or Email: [facility]@[email or web address] Phones: [phone] Thank you for using the [employer] service! Not Available [facility] 07/09/2025 02:30:46 Procedures Surgical History Date Name Laterality Status Provider Name and Address Organization Details Recorded Time 5 Breast Surgery (Lumpectomy, Biopsy, Implants) completed Shruthi Albabdoulaye [facility] 04/20/2023 10:19:31 Breast Surgery (Lumpectomy, Biopsy, Implants) completed Magda Hansen [facility] 05/27/2021 14:10:30 Imaging Results None recorded. Procedure Notes None recorded. Medical Equipment None Reported. Allergies Allergen ID Allergen Name Allergen Category Reaction Reaction Severity Criticality Documentation Date Start Date Code Code System Note Provider Name and Address Organization Details Recorded Time 3582467 Latex (substanc e) environme nt,medica tion hives Not available Not available 06/24/20252019 82362 8007 SNOMED Sophie Valdez [facility] 10:13:38 488439 latex environme nt,medica tion itching moderate Not available 04/20/2023 78716 91 RxNorm Sophieivonne Valdez [facility] 10:13:39 Medications Name Sig Start Date [...] Updated DateTime 12/05/2024 162.56 cm 41.9 kg/m2 311314.94 g Olive Shields [facility] 12/05/2024 13:33:23 Date Recorded Body height Body mass index (BMI) Body weight Provider Name and Address Organization Details Last Updated DateTime 04/20/2023 162.56 cm 33.6 kg/m2 71945.1 g [facility] 04/20/2023 10:19:09 Date Recorded Body height Body mass index (BMI) Body weight Oxygen saturation Oxygen saturation in Arterial blood by Pulse oximetry Heart rate Systolic And Diastolic Provider Name and Address Organization Details Last Updated DateTime 162.56 cm 41.7 kg/m2 914793. 95 g 99 % 99 % 60 /min 120/73 mm[Hg] [facility] 12:05:32 Date Recorded Body height Body mass index (BMI) Body weight Provider Name and Address Organization Details Last Updated DateTime 06/18/2024 162.56 cm 37.8 kg/m2 64480.32 g [facility] 06/18/2024 10:45:23 Date Recorded Body height Body mass index (BMI) Body weight Provider Name and Address Organization Details Last Updated DateTime 06/24/2025 162.56 cm 40.3 kg/m2 405879.21 g [facility] 06/24/2025 10:16:39 Social History Question Answer Notes LastModified by Organizat ion Details LastModified Time Tobacco Smoking Status [facility] 05/27/2021 14:10:26 Do You Have [...] Of Your Most Recent Tobacco Screening? 06/24/2025 [email or web address] Information not available 06/23/2025 Do You Have Any Pets? No Information not available 04/20/2023 What Is Your Relationship Status? Single Information not available 04/20/2023 General Stress Level High Information not available 04/20/2023 Has Tobacco Cessation Counseling Been Provided? No Information not available 04/20/2023 How Many Days In The Past Year Have You Consumed 4 Or More Drinks? 10 [email or web address] Information no t available 12/05/2024 Sex: Unknown [...] not available 05/27/2021 What is your occupation? [employer] [email or web address] Information not available 12/05/2024 What is your exercise level? Moderate [email or web address] Information not available 05/20/2025 Mental Status Question Answer Note LastModified by Organization D etails LastModified Time Do you feel stressed (tense, restless, nervous, or anxious, or unable to sleep at night)? [id number] Information not available 04/20/2023 Family History Relationship [...] ICD10 Code Diagnosis IMO Codes Diagnosis Note [id number] MD Taye Lira [address] [place] [address] 05/27/2021 14:06:37 05/27/2021 14:59:27 Obesity 065457550 E66.9 Z68.36 Diet: 1800 Calories Low Glycemic Index Diet Exercise: Work up to 30 min 5x/week as tolerated Depression screening 171 261575 Z13.31 see PQH-9 result in body of chart Screening Positive: Overall Plan discussed with Pt Contracept ion care management 078529205 Z30.9 -will refill the pirmella Systolic murmur 32598112 R01.1 -never been identified prior-vane chowdary brother also had a heart murmur Irregular periods 078412 07 N92.6 N92.0 -will place PHLEBOTOMY TECHNOLOGIST referral-c ontinue control for now [id number] MD Taye Lira [address],[facility] [address] [place] [address] 03/09/2022 13:21:39 03/09/2022 15:51:42 Depression screening 684081683 Z13.31 see PQH-9 result in body of chart Screening Negative Obesity 280759702 Z68.36 Diet: 1800 Calories Low Glycemic Index Diet Exercise: Work up to 30 min 5x/week as tolerated Insomnia 518747070 G47.0 0 will do zolpidem refillcont rolled contract was filled out Irregular periods 655991 07 N92.6 N92.0 -will place PHLEBOTOMY TECHNOLOGIST referral-c ontinue control for now [id number] MD Taye Lira [address],[facility] [address] [place] [address] 10/31/2022 09:27:33 10/31/2022 14:49:20 Depression screening 359730751 Z13.31 see PQH-9 result in body of chart Screening Negative Insomnia 050678748 G47.0 0 will do zolpidem refillcont rolled contract was filled out Mass of right breast 989 2204599 7603725 N63.10 -I explained to the patient that we are going to need to reach out to the facility she mentioned above in regards to finding some in network insurance possibilit y for her areas of concern. She will remain in [place] at least through January and so waiting until that point seems a little bit too long. We will reach out to the facility she mentioned and see if we can find a imaging facility that would build to facilitate a mammogram of the right-hand side as well as ultrasound [id number] MD Taye Lira [address] [place] [address] 04/20/2023 10:17:39 04/20/2023 10:50:49 Depression screening 879358412 Z13.31 see PQ-9 result in body of chart Screening Negative Body mass index 30+ - obesity 528121317 Z68.33 Anemia 629133760 D64.9 labs as noted below Fatigue 88490815 R53.83 Labs as noted below [id number] MD Taye Lira [address] [place] [address] 06/18/2024 10:43:35 06/18/2024 11:50:23 Depression screening 814000890 Z13.31 see PQH-9 result in body of chart Screening Negative Obesity 136435693 E66.9 Diet: 1800 Calories Low Glycemic Index Diet Exercise: Work up to 30 min 5x/week as tolerated Venereal d isease screening 050302239 Z11.3 no new sexual partners, however current partner may have had relations with otherspt wants testing for std Amenorrhea 18349056 N91. 2 6 days late on periodwill do blood preg test Dysuria 99851158 R30.0 check urin [id number] MD Taye Lira [address] [place] [address] 12/05/2024 13:30:50 12/05/2024 17:11:50 Severe obesity 4972416915 9104 E66.01 Z68.41 Insomnia 997734119 G47.0 0 will do zolpidem refillcont rolled contract was filled out previously Depression screening 171 564482 Z13.31 see PQ-9 result in body of chart Screening Negative Iron deficiency 29674841 E61.1 sentchecki ng labs Venereal d isease screening 842342658 Z11.3 no new sexual partners, however current partner may have had relations with otherspt wants testing for std Fatigue 19861980 R53.83 Labs as noted below Amenorrhea 41973758 N91. 2 6 days late on periodwill do blood preg test [id number] MD CHRISTOPHER Lira_Carlos ye [address] [place] [address] 05/20/2025 11:59:05 05/20/2025 13:14:02 Depression screening 304329578 Z13.31 see [facility]-9 result in body of chart Screening Negative Body mass index 40+ - severely obese 330594561 Z68.41 67168011 Lightheadedness 87539210 8 R42 73648 either 2/2 thc or hydroxyzin ecessation from [...] event of an urgent or emergent situation [id number] MD Taye Lira [address] [address] [place] [address] 06/24/2025 10:07:13 06/24/2025 17:26:22 Depression screening 359456341 Z13.31 see [facility]-9 result in body of chart Screening Negative Severe obesity 027136753 1 9104 E66.01 Z68.41 Vertigo 786924293 R42 61939 etiology unclearmri upcomingma y need neurology referralca [...] an urgent or emergent situation Frequent headache 512970 003 R51.9 56764037 Health Concerns Section Related Observation LastModified by Organization Detai ls LastModified Time None Recorded Concern Status LastModified by Organization Details LastModified Time None Recorded Advance Directives Directive N: Payers Insurance Date Sequence Insurance Name Policy Number Policy Russ Covered Member ID Russ Member ID Guarantor Name 05/19/2025 1 [employer] (PPO) [id number] Joya Henry [id number] Rebeka Roverto 10/31/2022 SLIDING FEE SCHEDULE - DISCOUNT Rebeka Roverto 05/20/2025 1 [employer] [id number] Rebeka Barrientosving [id number] Rebeka Roverto 05/20/2025 1 [employer] [id number] Rebeka Barrientosving [id number] Rebeka Roverto 07/16/2025 1 [employer] [place]PP[place]) Joya Blanco [id number] Rebeka Roverto 05/20/2025 1 [facility] (MEDICAID REPLACEMENT - HMO) Rebeka Barrientosving [id number] Rebeka Barrientosving Notes Date Note Type Note Provider Name and Address Organization Details Recorded Time 3 text/html 1) Method of Visit Video and Audio2) Modality used: MS teams3) Time Spent in communication with patient 8 min 34 sec4) Patient Consent for telemedicine visit Patient was consented5) Patient and provider location: Pt location was at her home in [place], [place]. . Provider location at work. 22 yo FHere today for virtual appointmentThe patient with a history of anemia, she like to repeat blood work she think she is more tired. She also needs a refill of her zolpidem which she is consistent and stable on. [facility] [place] [address], [place], [address], [facility] - [facility] 04/20/2023 10:54:27 4 text/html 23-year-old female practice [...] is out of state right now in [place] and so I explained to her that we will need to do the orders through [facility] [place] [address], [place], [address], [facility] 06/18/2024 11:02:09 5 text/html 1) Method of [...] periodsneeds updated [place] [address], [place], [address], [facility] 12/05/2024 15:12:15 5 text/html 1) Method of [...] reaction - went to ER againCalled the qa automation architect physician and hydroxyzine was givenPt seeking [place] [address], [place], [address], [facility] 05/20/2025 12:47:41 5 text/html 1) Method of [...] paperwork filled out for this as well. [facility] [place] [address] [facility] [address], [place], [address], [facility] 06/24/2025 16:04:04 OBGyn Episode No OBEpisode recorded.
--- OUTSIDE RECORDS SUMMARY | 2025-10-01 15:05 | XMS_ITS | Clinical Summary ---
Author Organization [facility] Address [facility] [place] [address] Care Team Providers Care Airdox Fitter Name Role Phone Mike Todd MD Primary Care Provider [phone] Allergies Active Allergy Reactions Criticality Noted Date [...] CDT - 08/05/2025 5:59 PM CDT Emergency [facility] [place] [address] Day Mendez MD Tingling Discharge Disposition: Home or Self Care (Routine Discharge) 08/05/2025 Travel 08/02/2025 4:52 PM CDT - 08/02/2025 7:36 PM CDT Emergency [facility] [place] [address] Lilly Albrecht MD Shortness Of Breath Discharge Disposition: Left Against Medical Advice 08/02/2025 Travel 07/31/2025 2:15 PM CDT - 07/31/2025 9:06 PM CDT Emergency [facility] [place] [address] Franklin Vargas MD Medical Problem Discharge Disposition: Home or Self Care (Routine Discharge) 07/31/2025 Travel 07/29/2025 9:40 PM CDT - 07/29/2025 11:41 PM CDT Emergency [facility] [place] [address] Maureen Benavides MD Medical Problem Discharge Disposition: Home or Self Care (Routine Discharge) 07/29/2025 Travel 07/28/2025 11:38 AM CDT - 07/28/2025 2:52 PM CDT Emergency [facility] [place] [address] Marcus Akhtar MD Dizziness; Blurred Vision; Headache; Ear Problem Discharge Disposition: Home or Self Care (Routine Discharge) 07/28/2025 Travel 07/18/2025 1:02 AM CDT - 07/18/2025 4:55 AM CDT Emergency [facility] [place] [address] Fredo Sy MD,PHD Headache Discharge Disposition: Home or Self Care (Routine Discharge) 07/18/2025 Travel 07/13/2025 Telephone [facility] Multis[facility] - [facility] [address] [facility], [address] [place] [phone] Bogdan Chen MD Referral from Last 3 [...] PM CDT 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 [address] [place] [address] Test Date: 2025-08-05 Pat Name: ANGELINA GREGORY Department: 41 Room: EXAM15 Gender: Female Manager Reading: [id number] : 2000 Requested By: AMRIT AGUILAR Order Number: [id number] Reading : Saij Rdz Measurements Intervals [place] Rate: 84 P: 57 MS: 152 QRS: 63 QRSD: 90 T: 11 QT: 345 QTc: 409 Interpretive Statements SINUS RHYTHM NONSPECIFIC T-WAVE ABNORMALITY Compared to ECG 08/02/2025 17:27:04 Sinus arrhythmia no longer present Possible ischemia no longer present T-wave abnormality still present Procedure Note Saji Rdz MD - 08/05/2025 [facility] [address] Test Date: 2025-08-05 Pat Name: ANGELINA GREGORY Department: 41 Room: EXAM15 Gender: Female Manager Reading: [id number] : 2000 Requested By: AMRIT AGUILAR Order Number: [id number] Reading : Saji Rdz Measurements Intervals [place] Rate: 84 P: 57 MS: 152 QRS: 63 QRSD: 90 T: 11 QT: 345 QTc: 409 Interpretive Statements SINUS RHYTHM NONSPECIFIC T-WAVE ABNORMALITY Compared to ECG 08/02/2025 17:27:04 Sinus arrhythmia no longer present Possible ischemia no longer present T-wave abnormality still present us Amrit Aguilar PA-C ECG ORDERABLES Final Resul t [facility] RAD * TSH W/REFLEX (08/05/2025 4:03 PM CDT) Only the most recent of4 resultswithin the time period is included. TSH 1.820 0.358 - 3.74 uIU/ML 08/05/2025 5:03 PM CDT [facility] Comment: HIGH DOSES OF BIOTIN MAY INTERFERE WITH THIS TEST RESULT. CORRELATION TO CLINICAL HISTORY AND PRESENTATION RECOMMENDED. FREE T4 NOT INDICATED 08/05/2025 4:03 PM CDT us Amrit Aguilar PA-C LABORATORY Final Resul t Performing Organization Address City/[facility] Co de Phone Number [facility] [address] [place] [address], [place] [phone] * PARTIAL THROMBOPLASTIN TIME,PTT (08/05/2025 4:03 PM CDT) PTT 29.5 25.1 - 36.5 SEC 08/05/2025 4:41 PM CDT [facility] 08/05/2025 4:03 PM CDT Amrit Aguilar PA-C LABORATORY Final Resul t Performing Organization Address [facility] Co de Phone Number [facility] [address] [place] [address], [place] [phone] * PROTIME/INR, VENOUS (08/05/2025 4:03 PM CDT) PROTIME 12.1 10.2 - 12.9 SEC 08/05/2025 4:41 PM CDT [facility] INR 1.1 08/05/2025 4:41 PM CDT [facility] Comment: Recommended INR Therapeutic Goals: 2.0-3.0 Routine Therapy 2.5-3.5 Mechanical Prosthetic Valves (High Risk) 08/05/2025 4:03 PM CDT us Amrit Aguilar PA-C LABORATORY Final Resul t [facility] [address] [place] [address], [place] [phone] * (ABNORMAL) COMPREHENSIVE METABOLIC PANEL (08/05/2025 4:03 PM CDT) Only the most recent of6 resultswithin the time period is included. [facility] GLUCOSE 95 70 - 99 MG/DL 08/05/2025 5:03 PM CDT [facility] BUN 8 7 - 18 MG/DL 08/05/2025 5:03 PM CDT [facility] CREATININE S/P/B 0.78 0.55 - 1.02 MG/DL 08/05/2025 5:03 PM CDT [facility] SODIUM S/P/B 139 136 - 145 MMOL/L 08/05/2025 5:03 PM CDT [facility] POTASSIUM S/P/B 3.1(L) 3.5 - 5.1 MMOL/L 08/05/2025 5:03 PM CDT [facility] CHLORIDE S/P/B 111 97 - 115 MMOL/L 08/05/2025 5:03 PM CDT [facility] CO2 19.9(L) 21 - 32 MMOL/L 08/05/2025 5:03 PM CDT [facility] CALCIUM S/P/B 9.2 8.5 - 10.1 MG/DL 08/05/2025 5:03 PM CDT [facility] BILIRUBIN TOTAL S/P/B 0.4 0.2 - 1.2 MG/DL 08/05/2025 5:03 PM CDT [facility] Comment: THIS ASSAY IS NOT RECOMMENDED FOR PATIENTS UNDERGOING TREATMENT WITH ELTROMBOPAG DUE TO THE POTENTIAL FOR FALSELY ELEVATED RESULTS. TOTAL PROTEIN S/P/B 8.1 6.4 - 8.2 G/DL 08/05/2025 5:03 PM CDT [facility] ALBUMIN S/P/B 3.6 3.4 - 5.0 G/DL 08/05/2025 5:03 PM CDT [facility] AST 17 15 - 37 U/L 08/05/2025 5:03 PM CDT [facility] ALT 20 14 - 55 U/L 08/05/2025 5:03 PM CDT [facility] ALKALINE PHOSPHATASE S/P/B 69 50 - 136 U/L 08/05/2025 5:03 PM CDT [facility] ANION GAP 8.1 2 - 10 MMOL/L 08/05/2025 5:03 PM CDT [facility] BUN CREATININE RATIO 10.2 6 - 26 08/05/2025 5:03 PM CDT [facility] A/G RATIO 0.8(L) 1.0 - 2.0 RATIO 08/05/2025 5:03 PM T [facility] GFR ESTIMATE >90 >90 ML/MIN/1.7 3 M2 08/05/2025 5:03 PM CDT [facility] Comment: NOTE: eGFR is not calculated [...] Amrit Aguilar PA-C LABORATORY Final Resul t [facility] [address] [place] [address], [place] [phone] * (ABNORMAL) CBC W/DIFF AUTOMATED (08/05/2025 4:03 PM CDT) Only the most recent of6 resultswithin the time period is included. [facility] WBC 7.02 4.5 - 11.0 x10'3/uL 08/05/2025 4:20 PM CDT [facility] RBC 4.13(L) 4.20 - 5.40 x10'6/uL 08/05/2025 4:20 PM CDT [facility] HGB 12.5 12.0 - 16.0 G/DL 08/05/2025 4:20 PM CDT [facility] HCT 37.8(L) 38.0 - 48.0 % 08/05/2025 4:20 PM CDT [facility] MCV 91.5 81.0 - 99.0 FL 08/05/2025 4:20 PM CDT [facility] MCH 30.3 27.0 - 31.0 PG 08/05/2025 4:20 PM CDT [facility] MCHC 33.1 32.0 - 36.0 G/DL 08/05/2025 4:20 PM CDT [facility] RDW 15.7(H) 11.5 - 14.5 % 08/05/2025 4:20 PM CDT [facility] PLT 317 130 - 400 x10'3/uL 08/05/2025 4:20 PM CDT [facility] MPV 9.4 9.3 - 12.2 FL 08/05/2025 4:20 PM CDT [facility] DIFFERENTIAL TYPE AUTOMATED DIFFERENTIAL 08/05/2025 4:20 PM CDT [facility] NEUTROPHILS % 73.4 % 08/05/2025 4:20 PM CDT [facility] LYMPHOCYTES % 21.1 % 08/05/2025 4:20 PM CDT [facility] MONOCYTES % 3.8 % 08/05/2025 4:20 PM CDT [facility] EOSINOPHILS 0.6 % 08/05/2025 4:20 PM CDT [facility] BASOPHILS 0.7 % 08/05/2025 4:20 PM CDT [facility] IMMATURE GRANS % 0.4 % 08/05/20 4:20 PM CDT [facility] ABS. NEUTROPHILS 5.15 1.80 - 7.70 x10'3/uL 08/05/2025 4:20 PM CDT [facility] ABS. LYMPHOCYTES 1.48 1.00 - 4.80 x10'3/uL 08/05/2025 4:20 PM CDT [facility] ABS. MONOCYTES 0.27 0.24 - 0.86 x10'3/uL 08/05/2025 4:20 PM CDT [facility] ABS. EOSINOPHILS 0.04 0.04 - 0.36 x10'3/uL 08/05/2025 4:20 PM CDT [facility] ABS. BASOPHILS 0.05 0.01 - 0.08 x10'3/uL 08/05/2025 4:20 PM CDT [facility] ABS. IMMATURE GRANULOCYTES 0.03 0.00 - 0.49 x10'3/uL 08/05/2025 4:20 PM CDT [facility] 08/05/2025 4:03 PM CDT us Amrit Aguilar PA-C LABORATORY Final Resul t [facility] [address] [place] [address], * TROPONIN, QUANT (08/05/2025 4:03 PM CDT) Only the most recent of4 resultswithin the time period is included. TROPONIN I HIGH SENSITIVITY 3 <54 ng/L 08/05/2025 5:03 PM CDT [facility] Comment: HIGH DOSES OF BIOTIN, TROPONIN-SPECIFIC AUTOANTIBODIES, AND ANTIBODY THERAPY CONTAINING HAMA MAY INTERFERE WITH THIS TEST RESULT. CORRELATION TO CLINICAL HISTORY AND PRESENTATION RECOMMENDED. 08/05/2025 4:03 PM CDT us Amrit Aguilar PA-C LABORATORY Final Resul t Performing Organization Address City/[facility]/ZIP Co de Phone Number [facility] [address] [place] [address], * MAGNESIUM (08/05/2025 4:03 PM CDT) Only the most recent of5 resultswithin the time period is included. Pathologist [facility] MAGNESIUM 2.0 1.8 - 2.4 MG/DL 08/05/2025 5:03 PM CDT [facility] 08/05/2025 4:03 PM CDT us Amrit Aguilar PA-C LABORATORY Final Resul t [facility] [address] [place] [address], [place] [phone] * XR CHEST PORTABLE (08/05/2025 2:43 PM CDT) Only the most recent of2 resultswithin the time period is included. Anatomical Region Laterality Modality Chest Radiographic Dayanna ging 08/05/2025 2:44 PM CDT Impressions 08/05/2025 2:46 PM CDT =====IMPRESSION:===== No acute findings. Ordered By: AMRIT AGUILAR Interpreted By: Quintin Ascencio MD, 08/05/2025 2:44 PM Narrative 08/05/2025 2:46 PM CDT [place] [address] Examination: Chest x-ray 1 view Exam date/time: 08/05/2025 2:34 PM Reason For Exam: Shortness of breath. Comparison: 08/02/2025 Findings: Cardiomediastinal silhouette and pulmonary vasculature are within normal limits. No acute airspace consolidation, pleural effusion or pneumothorax. Lungs are somewhat underinflated. External artifacts are noted. Procedure Note Quintin Ascencio MD - 08/05/2025 [place] [address] Examination: Chest x-ray 1 view Exam date/time: [...] 5:03 PM Narrative 08/02/2025 5:04 PM CDT [place] [address] Examination: XR CHEST PA+LAT Exam time: 08/02/2025 4:34 PM Clinical history: Short of breath. Comparison: Prior radiographs June 2025. Technique: One view chest. Findings: Cardiac size is normal. Trachea is in the midline. In the lung parenchyma no acute infiltrates. There is no pneumothorax or effusion. Osseous structures are intact. Procedure Note Boby Falk MD - 08/02/2025 [place] [address] Examination: XR CHEST PA+LAT Exam time: 08/02/2025 [...] Falk MD, 08/02/2025 5:03 PM Alirio Jeffers [employer] SAL[employer] TRAIN[employer] GENERAL IMAGING Final Result * CK (CPK) (07/31/2025 2:35 PM CDT) CPK 79 21 - 215 U/L 07/31/2025 4:09 PM CDT [facility] 07/31/2025 2:35 PM CDT Marci RODRIGUEZ LABORATORY Final Result [facility] [address] [place] [address], [place] [phone] * THYROXINE, FREE (FT4) (07/29/2025 10:12 PM CDT) FREE T4 0.90 0.76 - 1.46 NG/DL 07/29/2025 10:52 PM CDT [facility] 07/29/2025 10:1 2 PM CDT Silvia RODRIGUEZ LABORATORY Final Result Performing Organization Address [facility]/ZIP Co de Phone Number [facility] [address] [place] [address], [place] [phone] * CT HEAD WO CON (07/28/2025 1:44 [...] 1:44 PM Narrative 07/28/2025 1:50 PM CDT [address] [address] Exam: CT head without contrast Exam Date/Time: [...] Procedure Note Izabella Almendarez MD - 07/28/2025 [facility] [address] [place], [place] [address] Exam: CT head without contrast Exam Date/Time: [...] - 500 ng{FEU}/mL 07/18/2025 1:44 AM CDT [facility] Comment: D-Dimer values less than [...] Fredo Sy MD,PHD LABORATORY Final Resu lt [facility] [address] [place] [address], [place] [phone] from Last [address] [facility] Care Teams Airdox Fitter Relationship Specialty Start Date End Date Mike Todd MD [address] [place] [phone] PCP - General 05/31/25
== END 2025-09-30 18:45 | disposition home or self-care (01) ==
PROVIDERS: Physician Assistant; Emergency Provider Student in an Organized Health Care Education/Training Program
DX: J40 Bronchitis, not specified as acute or chronic (principal); Z20.822 Contact with and (suspected) exposure to COVID-19; Z86.2 Personal history of diseases of the blood and blood-forming organs and certain disorders involving the immune mechanism; R94.31 Abnormal electrocardiogram [ECG] [EKG]
CPT/HCPCS: 36415; 71046; 71275; 80053; 81025; 85025; 85380; 86850; 86900; 86901; 87637; 93005; 99284; A9270; Q9967